=== PATIENT | male | born 1940 | race Caucasian/White ===

== ENCOUNTER 2017-10-13 16:08 | Observation (INO) | payer OTHER, MEDICARE, SELFPAY ==
[2016-03-01 15:34] VITALS: BMI 34.5
[2017-10-13] VITALS (10 sets, daily range): BP systolic 104–156; BP diastolic 67–87; PULSE 48–61; RESP 13–18; TEMP 36.6–36.7; O2SAT 95–98; BMI 34.3; BMI 33.7
--- NOTE | 2017-10-13 16:23 | RAD_ITS ---
STUDY: X-RAY CHEST REASON FOR EXAM: Male, 77 years old. CHEST PAIN TECHNIQUE: Single frontal view of the chest. COMPARISON: February 28, 2016 FINDINGS: Chronic appearing increased interstitial lung markings. There is no demonstrated pleural abnormality. Normal heart size. Normal mediastinum and grupo. Normal visualized pulmonary arteries. There is atherosclerotic calcification of the aortic arch with tortuosity. There are diffuse degenerative changes of the visualized thoracic spine. There is degenerative osteoarthritis of the bilateral shoulders. There is no demonstrated abnormality of the visualized soft tissue structures of the upper abdomen. RAD/Chest 1 View (Portable) IMPRESSION: There are no acute findings. Electronically Signed: Yandel Flynn MD at 18:03 EDT , Service support ,
--- NOTE | 2017-10-13 16:23 | EKG12_ITS ---
Test Reason : CP Blood Pressure : / mmHG Vent. Rate : 051 BPM Atrial Rate : 051 BPM P-R Int : 180 ms QRS Dur : 096 ms QT Int : 436 ms P-R-T Axes : 056 033 057 degrees QTc Int : 401 ms Sinus bradycardia Otherwise normal ECG Confirmed by IBETH LOZANO, DARRION ([id number]), scientific editor ALEENA SUERO ([id number] on 10/17/2017 2:26:38 PM Referred By: TREV Confirmed By:DARRION CRISTINA MD
--- NOTE | 2017-10-13 16:40 | CT_ITS ---
STUDY: CT BRAIN WITHOUT CONTRAST REASON FOR EXAM: Male, 77 years old. DIZZINESS, CP, SOB, DIZZY RADIATION DOSAGE (If Supplied By Facility): CTDIvol = ( 44.99 ) mGy, DLP = ( 829.85 ) mGycm TECHNIQUE: Transaxial CT imaging of the brain was performed without administration of intravenous contrast material. Individualized dose optimization techniques were used for this CT. COMPARISON: None. FINDINGS: Normal soft tissue structures. Normal calvarium. There are calcifications noted in the distal vertebral arteries. There are calcifications noted in the cavernous carotid arteries. This is consistent for atherosclerotic disease. There is a calcified mass along the midline perifalcine extra-axial space. This is likely a meningioma. Normal size ventricles and extra-axial spaces for the patient's age. Normal white matter tracts of the cerebral hemispheres. Normal basal ganglia and thalami. Normal brainstem. Normal cerebellum. There is no intracranial hemorrhage. There are no findings of an acute ischemic infarction. There is mild maxillary sinus disease. There is mild ethmoid sinus disease. CT/Brain/Head without Contrast IMPRESSION: Normal unenhanced CT scan of the brain. Electronically Signed: Yandel Flynn MD at 18:04 EDT , Service support ,
--- NOTE | 2017-10-13 16:44 | ED.VISSUMM ---
- ER Visit Summary Date of Service: 10/13/17 Chief Complaint: Chest pain History of Present Illness: The patient is a 77 M presenting with chest pain. 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 He had associated shortness of breath, nausea, diaphoresis, lightheadedness. He states initially he had spinning sensation. This spinning sensation resolved after approximately 1 minute. He has history of hypertension, hypercholesteremia, previous stents 1.5 years ago. He did have recent travel to [place] 2 weeks ago. He states it was a 12 hour car ride but he stopped frequently and got out of the car. He states he is under a lot of stress. Physical Examination: Vitals are stable. Patient is afebrile. Alert no acute distress. HEENT exam is unremarkable. Neck is supple. Lungs are clear and equal bilaterally. Heart is regular and bradycardic. Abdomen is soft nontender nondistended. Extremities are unremarkable. Skin is warm and dry. No focal neurologic deficit. NIH 0 Remainder of exam is unremarkable. Emergency Department Course and Treatment: Patient was given aspirin on arrival. He is pain-free on arrival. EKG is sinus bradycardia rate of 51. CBC, chemistries unremarkable. Troponin is negative. D-dimer negative. Chest x-ray shows no acute process. CT head shows no acute process. On reevaluation he is chest pain-free. Will discuss with the hospitalist for admission. Disposition: Admission Impression: Chest pain This note was generated with [email or web address] dictation software. It may contain incorrect words, spelling, and punctuation that were not noted in review of the chart prior to signing ED Disposition - Plan for ED Patient: Chief Complaint: Chest Pain Referrals: Kodi Ortiz MD [Primary Care Provider] -
--- NOTE | 2017-10-13 16:47 | ED.DCSUM_ITS ---
- ER Visit Summary Date of Service: 10/13/17 Chief Complaint: Chest pain History of Present Illness: The patient is a 77 M presenting with chest pain. 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 He had associated shortness of breath, nausea, diaphoresis, lightheadedness. He states initially he had spinning sensation. This spinning sensation resolved after approximately 1 minute. He has history of hypertension, hypercholesteremia, previous stents 1.5 years ago. He did have recent travel to [place] 2 weeks ago. He states it was a 12 hour car ride but he stopped frequently and got out of the car. He states he is under a lot of stress. Physical Examination: Vitals are stable. Patient is afebrile. Alert no acute distress. HEENT exam is unremarkable. Neck is supple. Lungs are clear and equal bilaterally. Heart is regular and bradycardic. Abdomen is soft nontender nondistended. Extremities are unremarkable. Skin is warm and dry. No focal neurologic deficit. NIH 0 Remainder of exam is unremarkable. Emergency Department Course and Treatment: Patient was given aspirin on arrival. He is pain-free on arrival. EKG is sinus bradycardia rate of 51. CBC , chemistries unremarkable. Troponin is negative. D-dimer negative. Chest x- ray shows no acute process. CT head shows no acute process. On reevaluation he is chest pain-free. Will discuss with the hospitalist for admission. Disposition: Admission Impression: Chest pain This note was generated with [employer] dictation software. It may contain incorrect words, spelling, and punctuation that were not noted in review of the chart prior to signing ED Disposition - Plan for ED Patient: Chief Complaint: Chest Pain Referrals: Kodi Ortiz MD [Primary Care Provider] -
[2017-10-13 16:49] LABS: Absolute Lymphocyte Count 1.73 X10^3/ul (0.83-4.51); Absolute Neutrophil Count 6.5 X10^3/uL (2.0-7.7); Basophil# 0.02 X10^3/uL; Basophil% 0.2 % (0-1); Eosinophil# 0.16 X10^3/uL; Eosinophils% 1.8 % (0-5); Hematocrit 44.5 % (40-54); Hemoglobin 14.8 g/dl (13.0-16.5); Lymphocyte # 1.73 X10^3/ul (4.0); Lymphocyte % 19.3 % (19-41); Mean Corp Hgb Conc 33.3 g/gl (32-36); Mean Corpuscular Volume 90.1 fL (80-94); Monocyte# 0.58 X10^3/uL; Monocyte% 6.5 % (0-10); Neutrophil # 6.47 X10^3/uL (2.7-7.7); Neutrophil % 72.1 % (47-70); Platelet Count 200 K/mm3 (150-450); RBC Distribution Width CV 13.1 % (11.6-14.6); RBC Distribution Width SD 42.6 fl (35.1-43.9); Red Blood Count 4.94 M/mm3 (4.6-6.2)
[2017-10-13 16:50] LABS: POSITIVE COUNT NO; POSITIVE DIFFERENTIAL NO; POSITIVE MORPHOLOGY NO
[2017-10-13 16:57] LABS: Anion Gap 5 (5-15); BUN 22 mg/dL (7-18); BUN/Creat Ratio 19.5 RATIO (10-20); Calcium,Total 10.1 mg/dL (8.5-10.1); Chloride 106 mmol/L (98-107); Creatinine, Serum 1.13 mg/dL (0.70-1.30); EST Glomerular Filtration Rate 67 mL/min (>60); Est Glom Filt Rate - Afr Amer 81 mL/min (>60); Estimated Creatinine Clearance 63.83 ml/min; Glucose 112 mg/dL (74-106); Potassium 4.5 mmol/L (3.5-5.1); Sodium Level 139 mmol/L (136-145)
[2017-10-13 16:58] LABS: D-Dimer Quantitative (DVT/PE) < 0.27 FEU/ug/m (0.27-0.49)
[2017-10-13] MEDS: Aspirin 81 MG TAB.CHEW 324 MG PO (17:03)
--- NOTE | 2017-10-13 18:32 | PCM.HP.STD ---
Problem List (1) Chest discomfort Status: Acute (2) Nicotine addiction Status: Chronic Qualifiers: Nicotine product type: cigarettes Substance use status: unspecified nicotine-induced disorder Qualified Code(s): F17.219 - Nicotine dependence, cigarettes, with unspecified nicotine-induced disorders (3) Sleep-disordered breathing Status: Chronic (4) Anxiety and depression Status: Suspected (5) Diabetes mellitus type 2 in obese Status: Chronic (6) Post PTCA Status: Chronic Comment: LAD and circumflex (7) CAD (coronary artery disease) Status: Chronic Qualifiers: Coronary Disease-Associated Artery/Lesion type: unspecified vessel or lesion type [place] vs. transplanted heart: unspecified whether [place] or transplanted heart Associated angina: angina presence unspecified Qualified Code(s): I25.10 - Atherosclerotic heart disease of [place] coronary artery without angina pectoris (8) Hyperlipidemia Status: Chronic Qualifiers: Hyperlipidemia type: pure hypercholesterolemia Qualified Code(s): E78.00 - Pure hypercholesterolemia, unspecified; E78.0 - Pure hypercholesterolemia (9) HTN (hypertension) Status: Chronic Qualifiers: Hypertension type: essential hypertension Qualified Code(s): I10 - Essential (primary) hypertension History of Present Illness Date of Admission: 10/13/17 Chief Complaint: Chest pain, LH, Dizziness The patient is a 77 y/o M w/ PMHx: HTN, HLD, CAD s/p PCI LAD and Circumflex 02/2016, Obesity, Tobacco Use who present to the [facility] ED on 10/13/17 with 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 Patient contacted Dr. Cha office who recommended presentation to the ED and also made appointment for patient. He noted prior to the onset he did have 1-2 minutes of vertigo which resolved and then he had onset of chest discomfort. He notes he has occasionally had vertigo but this has only lasted minutes and has never been prolonged. He notes general several week history of increased fatigue w/ notable bradycardia. He also notes recent car trip to [place]. In the ED work-up included afebrile, heart rate 48, BP 134/67, respiratory rate 13, 90% on 2 L nasal cannula, CBC, unremarkable d-dimer, BMP with BUN/Cr 22/1.13, glucose 112, < 0.015, EKG w/ sinus bradycardia, CT Head without acute findings, CXR with chronic changes. In the ED patient administered ASA. Last noted stress testing performed 05/18/16 w/ noted resting EKG sinus bradycardia with good functional capacity and heart rate response to exercise appropriate as well as BP response to exercise with some resting hypertension consistent with an appropriate response with no chest pain, arrhythmia or ST changes. Past Medical History Past Medical History (Chronic Problems): Chronic Problems (Last Updated 04/21/17 @ 10:36 by DANIELLE Molina) Nicotine addiction (Chronic) Sleep-disordered breathing (Chronic) Left atrial enlargement (Chronic) LVH (left ventricular hypertrophy) (Chronic) Diabetes mellitus type 2 in obese (Chronic) Post PTCA (Chronic ~2015) LAD and circumflex CAD (coronary artery disease) (Chronic) Hyperlipidemia (Chronic) HTN (hypertension) (Chronic) PAC (premature atrial contraction) (Chronic) PVC (premature ventricular contraction) (Chronic) Medical History: Medical History (Last Updated 04/21/17 @ 10:36 by DANIELLE Molina) Diabetes mellitus type 2 in obese (Chronic) E11.9, E66.9 CAD (coronary artery disease) (Chronic) I25.10 Hyperlipidemia (Chronic) E78.5 HTN (hypertension) (Chronic) I10 Allergies No Known Allergies Allergy (Verified 04/21/17 10:51) Home Medications: Ambulatory Orders Medication Instructions Recorded Acetaminophen [Tylenol Tablet] 325 - 650 mg PO Q6H PRN PRN #0 tab 03/02/16 Nitroglycerin [Nitrostat] 0.4 mg SUBLINGUAL Q5M PRN #1 bottle 03/02/16 Aspirin [Aspirin, Baby] 81 mg PO DAILY@0800 10/13/17 Atorvastatin Calcium [Lipitor] 80 mg PO DAILY@0 10/13/17 Clopidogrel Bisulfate [Plavix] 75 mg PO DAILY 10/13/17 Isosorbide Mononitrate [Imdur] 30 mg PO DAILY 10/13/17 Lisinopril [Zestril] 20 mg PO BID 10/13/17 Metoprolol Tartrate 12.5 mg PO BID 10/13/17 Surgical History: Surgical History (Last Updated 04/21/17 @ 10:37 by DANIELLE Molina) Post PTCA (Chronic) Onset Date: ~2015 Z98.61 LAD and circumflex Surgical History: - - PCI ?2, tonsillectomy. Psychiatric History: No pertinent psych hx Lives: Spouse/ Significant Other Smoking Status: Former smoker - Patient quit approximately 1.5 years prior to current presentation. Tobacco Use: Non-smoker Alcohol: None Drugs: None - *Family History Maternal History Items: - - Patient denies any maternal or paternal family history including diabetes, heart disease, cancer. Paternal History Items: - - Patient denies any maternal or paternal family history including diabetes, heart disease, cancer. Review of Systems Constitutional: Reports: Malaise, Weakness, Fatigue. Denies: Chills, Fever, Weight Change HEENT: Denies: Head Aches, Sinus Congestion, Sinus Drainage Cardiovascular: Reports: Chest Pain, Chest Pressure, Chest Tightness, Light Headedness. Denies: Edema, Orthopnea, Palpitations Respiratory: Reports: Shortness of Breath. Denies: Cough, Shortness of breath at rest, Sputum production Gastrointestinal: Reports: Melena. Denies: Abdominal Pain, Nausea, Vomiting Genitourinary: Denies: Dysuria Musculoskeletal: Denies: Joint Pain, Joint Tenderness Skin: Denies: Rash, Wounds Neurological: Denies: Numbness, Tingling, Focal weakness Psychiatric: Denies: Anxiety, Depression, Homicidal Ideations, Suicidal Ideations Hematologic/ Lymphatic: Denies: Easy Bruising, Easy Bleeding VTE Information - Inpt Only VTE Present on Admission: No VTE Mechan Device Prophylaxis: SCD's VTE Pharm Prophylaxis ordered?: Yes Subjective: He did upright in the ED bed, no acute distress, notes marked improvement since initial onset of chest discomfort, currently 1 out of 10. Objective: Physical Examination: General: awake, alert, oriented x 3 and cooperative, seated upright in bed in no apparent distress, notes chest pain has improved, more pressure currently, reduced. Skin: normal color, turgor, no icterus, cyanosis. HEENT: AT/NC, EOMI, PERRLA, MMM, no carotid bruits or JVD noted. Lungs: CTA bilaterally, moderate effort, mild decrease BL bases, no rales, ronchi or wheezing. Heart: regular rate and rhythm; no gallop, rub audible. Abdomen: soft, obese, NTTP, ND, normal BS, no HSM. Extremities: no cyanosis, clubbing, or edema. Neurological: patient awake, alert, oriented x 3; cognitive function intact; pupils equally reactive to light and accomodation; cranial nerves II-XII grossly normal, moving all 4 extremities, no focal deficits, strength mildly globally decreased. Psychiatric: affect appears normal, no acute evidence of depressive or anxiety feelings. - Physical Exam Vital Signs Temp Pulse Resp BP Pulse Ox 97.8 F 48 L 13 134/67 H 95 10/13/17 16:20 10/13/17 18:16 10/13/17 18:16 10/13/17 18:16 10/13/17 18:16 Oxygen Flow Rate (L/min) 2 Oxygen Delivery Method Nasal Cannula Weight: 260 lb 2.327 oz Body Mass Index (BMI) 34.3 Laboratory Tests Past 24 Hrs 10/13/17 10/13/17 10/13/17 16:35 16:35 16:35 WBC 9.0 RBC 4.94 Hgb 14.8 Hct 44.5 MCV 90.1 MCH 30.0 MCHC 33.3 RDW 13.1 RDW Differential 42.6 Plt Count 200 MPV 10.0 Immature Gran % (Auto) 0.100 Neut % (Auto) 72.1 H Lymph % (Auto) 19.3 Nicholas % (Auto) 6.5 Eos % (Auto) 1.8 Baso % (Auto) 0.2 Absolute Neuts (auto) 6.5 Absolute Lymphs (auto) 1.73 Total Counted Not Reportable D-Dimer Quant (PE/DVT) < 0.27 L Sodium 139 Potassium 4.5 Chloride 106 Carbon Dioxide 28.0 Anion Gap 5 BUN 22 H Creatinine 1.13 Estim Creat Clear Calc 63.83 Est GFR (MDRD) Af Amer 81 Est GFR (MDRD) Non-Af 67 BUN/Creatinine Ratio 19.5 Glucose 112 H Calcium 10.1 Troponin I < 0.015 Assessment/Plan All Active Problems (Last Updated 04/21/17 @ 10:36 by DANIELLE Molina) Chest discomfort (Acute) NSTEMI (non-ST elevated myocardial infarction) (Resolved) The patient is a 77 y/o M w/ PMHx: HTN, HLD, CAD s/p PCI LAD and Circumflex 02/2016, Obesity, Tobacco Use who present to the [facility] ED on 10/13/17 with 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 (1) Chest Pain: CBC, unremarkable d-dimer, BMP with BUN/Cr 22/1.13, glucose 112, < 0.015, EKG w/ sinus bradycardia, CT Head without acute findings, CXR with chronic changes. Will admit to PCU, place on a monitored bed to assure no acute myocardial infarction with serial cardiac enzymes and EKGs. Patient is able to perform exercise and does not have LBBB or V-pacing but does have history of PCI/ST-T changes with unclear wall motion abnormality at rest thus will proceed with AM nuclear stress test. ASA, NG, morphine. Will request Dr. Cha consultation as patient has upcoming appt with him secondary to his current presentation and noted bradycardia to assure agreement with medication changes. (2) Sinus bradycardia, arrhythmia: She notes more recently has been feeling poorly, possibly related to chest pain patient however states that his heart rate is frequently in the 40s, will decrease metoprolol dose. (3) CAD: s/p PCI LAD and Circ 02/2016, following w/ Dr. Cha, continue home regimen asa, plavix, statin, BB. (4) Hypertension: Continue home regimen including isosorbide, lisinopril, metoprolol with decreased dose given notable bradycardia, PRN hydralazine. (5) Hyperlipidemia: Continue home statin regimen. AM FLP. (6) Obesity: Weight loss and lifestyle changes encouraged, nutrition consulted for education and teaching. (7) Former Tobacco Use: Encouraged continued cessation. (8) Obesity: Weight loss and lifestyle changes encouraged. (9) DVT prophylaxis: SCD, Lovenox. Code Visit OBSV E&M: [id number] Initial observation care L3
--- NOTE | 2017-10-13 18:46 | HP.PCM_ITS ---
Problem List (1) Chest discomfort Status: Acute (2) Nicotine addiction Status: Chronic Qualifiers: Nicotine product type: cigarettes Substance use status: unspecified nicotine-induced disorder Qualified Code(s): F17.219 - Nicotine dependence, cigarettes, with unspecified nicotine-induced disorders (3) Sleep-disordered breathing Status: Chronic (4) Anxiety and depression Status: Suspected (5) Diabetes mellitus type 2 in obese Status: Chronic (6) Post PTCA Status: Chronic Comment: LAD and circumflex (7) CAD (coronary artery disease) Status: Chronic Qualifiers: Coronary Disease-Associated Artery/Lesion type: unspecified vessel or lesion type [place] vs. transplanted heart: unspecified whether [place] or transplanted heart Associated angina: angina presence unspecified Qualified Code(s): I25.10 - Atherosclerotic heart disease of [place] coronary artery without angina pectoris (8) Hyperlipidemia Status: Chronic Qualifiers: Hyperlipidemia type: pure hypercholesterolemia Qualified Code(s): E78.00 - Pure hypercholesterolemia, unspecified; E78.0 - Pure hypercholesterolemia (9) HTN (hypertension) Status: Chronic Qualifiers: Hypertension type: essential hypertension Qualified Code(s): I10 - Essential (primary) hypertension History of Present Illness Date of Admission: 10/13/17 Chief Complaint: Chest pain, LH, Dizziness The patient is a 77 y/o M w/ PMHx: HTN, HLD, CAD s/p PCI LAD and Circumflex 2015, Obesity, Tobacco Use who present to the [facility] ED on 10/13/17 with history 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 Patient contacted Dr. Cha office who recommended presentation to the ED and also made appointment for patient. He noted prior to the onset he did have 1-2 minutes of vertigo which resolved and then he had onset of chest discomfort. He notes he has occasionally had vertigo but this has only lasted minutes and has never been prolonged. He notes general several week history of increased fatigue w/ notable bradycardia. He also notes recent car trip to [place]. In the ED work-up included afebrile, heart rate 48, BP 134/67, respiratory rate 13, 90% on 2 L nasal cannula, CBC, unremarkable d-dimer, BMP with BUN/Cr 22/1.13, glucose 112, < 0.015, EKG w/ sinus bradycardia, CT Head without acute findings, CXR with chronic changes. In the ED patient administered ASA. Last noted stress testing performed 05/18/16 w/ noted resting EKG sinus bradycardia with good functional capacity and heart rate response to exercise appropriate as well as BP response to exercise with some resting hypertension consistent with an appropriate response with no chest pain, arrhythmia or ST changes. Past Medical History Past Medical History (Chronic Problems): Chronic Problems (Last Updated 04/21/17 @ 10:36 by DANIELLE Molina) Nicotine addiction (Chronic) Sleep-disordered breathing (Chronic) Left atrial enlargement (Chronic) LVH (left ventricular hypertrophy) (Chronic) Diabetes mellitus type 2 in obese (Chronic) Post PTCA (Chronic ~2015) LAD and circumflex CAD (coronary artery disease) (Chronic) Hyperlipidemia (Chronic) HTN (hypertension) (Chronic) PAC (premature atrial contraction) (Chronic) PVC (premature ventricular contraction) (Chronic) Medical History: Medical History (Last Updated 04/21/17 @ 10:36 by DANIELLE Molina) Diabetes mellitus type 2 in obese (Chronic) E11.9, E66.9 CAD (coronary artery disease) (Chronic) I25.10 Hyperlipidemia (Chronic) E78.5 HTN (hypertension) (Chronic) I10 Allergies No Known Allergies Allergy (Verified 04/21/17 10:51) Home Medications: Ambulatory Orders Medication Instructions Recorded Acetaminophen [Tylenol Tablet] 325 - 650 mg PO Q6H PRN PRN #0 tab 03/02/16 Nitroglycerin [Nitrostat] 0.4 mg SUBLINGUAL Q5M PRN #1 bottle 03/02/16 Aspirin [Aspirin, Baby] 81 mg PO DAILY@0800 10/13/17 Atorvastatin Calcium [Lipitor] 80 mg PO DAILY@0 10/13/17 Clopidogrel Bisulfate [Plavix] 75 mg PO DAILY 10/13/17 Isosorbide Mononitrate [Imdur] 30 mg PO DAILY 10/13/17 Lisinopril [Zestril] 20 mg PO BID 10/13/17 Metoprolol Tartrate 12.5 mg PO BID 10/13/17 Surgical History: Surgical History (Last Updated 04/21/17 @ 10:37 by DANIELLE Molina) Post PTCA (Chronic) Onset Date: ~2015 Z98.61 LAD and circumflex Surgical History: - - PCI ?2, tonsillectomy. Psychiatric History: No pertinent psych hx Lives: Spouse/ Significant Other Smoking Status: Former smoker - Patient quit approximately 1.5 years prior to current presentation. Tobacco Use: Non-smoker Alcohol: None Drugs: None - *Family History Maternal History Items: - - Patient denies any maternal or paternal family history including diabetes, heart disease, cancer. Paternal History Items: - - Patient denies any maternal or paternal family history including diabetes, heart disease, cancer. Review of Systems Constitutional: Reports: Malaise, Weakness, Fatigue. Denies: Chills, Fever, Weight Change HEENT: Denies: Head Aches, Sinus Congestion, Sinus Drainage Cardiovascular: Reports: Chest Pain, Chest Pressure, Chest Tightness, Light Headedness. Denies: Edema, Orthopnea, Palpitations Respiratory: Reports: Shortness of Breath. Denies: Cough, Shortness of breath at rest, Sputum production Gastrointestinal: Reports: Melena. Denies: Abdominal Pain, Nausea, Vomiting Genitourinary: Denies: Dysuria Musculoskeletal: Denies: Joint Pain, Joint Tenderness Skin: Denies: Rash, Wounds Neurological: Denies: Numbness, Tingling, Focal weakness Psychiatric: Denies: Anxiety, Depression, Homicidal Ideations, Suicidal Ideations Hematologic/ Lymphatic: Denies: Easy Bruising, Easy Bleeding VTE Information - Inpt Only VTE Present on Admission: No VTE Mechan Device Prophylaxis: SCD's VTE Pharm Prophylaxis ordered?: Yes Subjective: He did upright in the ED bed, no acute distress, notes marked improvement since initial onset of chest discomfort, currently 1 out of 10. Objective: Physical Examination: General: awake, alert, oriented x 3 and cooperative, seated upright in bed in no apparent distress, notes chest pain has improved, more pressure currently, reduced. Skin: normal color, turgor, no icterus, cyanosis. HEENT: AT/NC, EOMI, PERRLA, MMM, no carotid bruits or JVD noted. Lungs: CTA bilaterally, moderate effort, mild decrease BL bases, no rales, ronchi or wheezing. Heart: regular rate and rhythm; no gallop, rub audible. Abdomen: soft, obese, NTTP, ND, normal BS, no HSM. Extremities: no cyanosis, clubbing, or edema. Neurological: patient awake, alert, oriented x 3; cognitive function intact; pupils equally reactive to light and accomodation; cranial nerves II-XII grossly normal, moving all 4 extremities, no focal deficits, strength mildly globally decreased. Psychiatric: affect appears normal, no acute evidence of depressive or anxiety feelings. - Physical Exam Vital Signs Temp Pulse Resp BP Pulse Ox 97.8 F 48 L 13 134/67 H 95 10/13/17 16:20 10/13/17 18:16 10/13/17 18:16 10/13/17 18:16 10/13/17 18:16 Oxygen Flow Rate (L/min) 2 Oxygen Delivery Method Nasal Cannula Weight: 260 lb 2.327 oz Body Mass Index (BMI) 34.3 Laboratory Tests Past 24 Hrs 10/13/17 10/13/17 10/13/17 16:35 16:35 16:35 WBC 9.0 RBC 4.94 Hgb 14.8 Hct 44.5 MCV 90.1 MCH 30.0 MCHC 33.3 RDW 13.1 RDW Differential 42.6 Plt Count 200 MPV 10.0 Immature Gran % (Auto) 0.100 Neut % (Auto) 72.1 H Lymph % (Auto) 19.3 Ponce % (Auto) 6.5 Eos % (Auto) 1.8 Baso % (Auto) 0.2 Absolute Neuts (auto) 6.5 Absolute Lymphs (auto) 1.73 Total Counted Not Reportable D-Dimer Quant (PE/DVT) < 0.27 L Sodium 139 Potassium 4.5 Chloride 106 Carbon Dioxide 28.0 Anion Gap 5 BUN 22 H Creatinine 1.13 Estim Creat Clear Calc 63.83 Est GFR (MDRD) Af Amer 81 Est GFR (MDRD) Non-Af 67 BUN/Creatinine Ratio 19.5 Glucose 112 H Calcium 10.1 Troponin I < 0.015 Assessment/Plan All Active Problems (Last Updated 04/21/17 @ 10:36 by DANIELLE Molina) Chest discomfort (Acute) NSTEMI (non-ST elevated myocardial infarction) (Resolved) The patient is a 77 y/o M w/ PMHx: HTN, HLD, CAD s/p PCI LAD and Circumflex 2015, Obesity, Tobacco Use who present to the [facility] ED on 10/13/17 with history 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 (1) Chest Pain: CBC, unremarkable d-dimer, BMP with BUN/Cr 22/1.13, glucose 112 , < 0.015, EKG w/ sinus bradycardia, CT Head without acute findings, CXR with chronic changes. Will admit to PCU, place on a monitored bed to assure no acute myocardial infarction with serial cardiac enzymes and EKGs. Patient is able to perform exercise and does not have LBBB or V-pacing but does have history of PCI /ST-T changes with unclear wall motion abnormality at rest thus will proceed with AM nuclear stress test. ASA, NG, morphine. Will request Dr. Cha consultation as patient has upcoming appt with him secondary to his current presentation and noted bradycardia to assure agreement with medication changes. (2) Sinus bradycardia, arrhythmia: She notes more recently has been feeling poorly, possibly related to chest pain patient however states that his heart rate is frequently in the 40s, will decrease metoprolol dose. (3) CAD: s/p PCI LAD and Circ 02/2016, following w/ Dr. Cha, continue home regimen asa, plavix, statin, BB. (4) Hypertension: Continue home regimen including isosorbide, lisinopril, metoprolol with decreased dose given notable bradycardia, PRN hydralazine. (5) Hyperlipidemia: Continue home statin regimen. AM FLP. (6) Obesity: Weight loss and lifestyle changes encouraged, nutrition consulted for education and teaching. (7) Former Tobacco Use: Encouraged continued cessation. (8) Obesity: Weight loss and lifestyle changes encouraged. (9) DVT prophylaxis: SCD, Lovenox. Code Visit OBSV E&M: 88229 Initial observation care L3
--- NOTE | 2017-10-13 19:29 | EKG12_ITS ---
Test Reason : CP NEW ADMISSION Blood Pressure : / mmHG Vent. Rate : 049 BPM Atrial Rate : 049 BPM P-R Int : 198 ms QRS Dur : 096 ms QT Int : 436 ms P-R-T Axes : 058 039 060 degrees QTc Int : 393 ms Sinus bradycardia Otherwise normal ECG Confirmed by IBETH LOZANO, DARRION ([id number]), script editor ALEENA SUERO ([id number] on 10/17/2017 3:45:51 PM Referred By: JERMAINE Confirmed By:DARRION CRISTINA MD
[2017-10-13 19:44] LABS: Magnesium 2.1 mg/dL (1.6-2.6)
[2017-10-13] MEDS: 0.9% Normal Saline 1,000 ML 100 ML IV (22:00)
[2017-10-13] MEDS: Atorvastatin Calcium 80 MG Tablet PO (22:01)
[2017-10-13] MEDS: Famotidine 20 MG Tablet PO (22:01)
[2017-10-13] MEDS: Lisinopril 20 MG Tablet PO (22:01)
[2017-10-14] VITALS (8 sets, daily range): BP systolic 122–138; BP diastolic 60–76; PULSE 49–60; RESP 16–18; TEMP 36.5–36.6; O2SAT 95–97
--- NOTE | 2017-10-14 05:55 | EKG12_ITS ---
Test Reason : MORNING EKG Blood Pressure : / mmHG Vent. Rate : 050 BPM Atrial Rate : 050 BPM P-R Int : 220 ms QRS Dur : 096 ms QT Int : 460 ms P-R-T Axes : 072 042 060 degrees QTc Int : 419 ms Sinus bradycardia with 1st degree A-V block Otherwise normal ECG Confirmed by IBETH LOZANO, DARRION ([id number]), online content editor ALEENA SUERO ([id number]) on 10/17/2017 3:42:23 PM Referred By: JERMAINE Confirmed By:DARRION CRISTINA MD
[2017-10-14] MEDS: 0.9% Normal Saline 1,000 ML 100 ML IV (05:57)
[2017-10-14] MEDS: Lisinopril 20 MG Tablet PO (05:57)
[2017-10-14] MEDS: Aspirin 81 MG TAB.CHEW PO (05:57)
[2017-10-14] MEDS: Clopidogrel Bisulfate 75 MG Tablet PO (05:57)
[2017-10-14 06:24] LABS: Hemoglobin 14.2 g/dl (13.0-16.5); Mean Corp Hgb Conc 33.8 g/gl (32-36); Mean Corpuscular Hgb 30.5 pg (27.0-32.0); Mean Corpuscular Volume 90.1 fL (80-94); Mean Platelet Vol. 10.1 fl (6.2-12.0); Platelet Count 182 K/mm3 (150-450); RBC Distribution Width CV 12.9 % (11.6-14.6); RBC Distribution Width SD 42.1 fl (35.1-43.9); Red Blood Count 4.66 M/mm3 (4.6-6.2)
[2017-10-14 06:25] LABS: Scan Indicated on CBC? Y/N NO
[2017-10-14 06:26] LABS: International Normalized Ratio 1.1; Prothrombin Time (Protime)PT. 13.9 SECONDS (11.7-14.9)
[2017-10-14 06:27] LABS: Partial Thromboplast Time 26.3 Seconds (24.1-36.2)
[2017-10-14 06:45] LABS: Anion Gap 9 (5-15); BUN 22 mg/dL (7-18); BUN/Creat Ratio 19.8 RATIO (10-20); Calcium,Total 8.7 mg/dL (8.5-10.1); Chloride 108 mmol/L (98-107); Cholesterol 95 mg/dL (200); Creatinine, Serum 1.11 mg/dL (0.70-1.30); EST Glomerular Filtration Rate 69 mL/min (>60); Est Glom Filt Rate - Afr Amer 83 mL/min (>60); Estimated Creatinine Clearance 64.98 ml/min; Glucose 118 mg/dL (74-106); High Density Lipoprotein 28 mg/dL; Potassium 4.3 mmol/L (3.5-5.1); Sodium Level 143 mmol/L (136-145); Triglycerides 192 mg/dL; Very Low Density Lipoprotein 38 mg/dL (5-40)
--- NOTE | 2017-10-14 10:21 | PCM.CONS.C ---
Problem List (1) Chest discomfort Status: Acute (2) Bradycardia Status: Acute (3) CAD (coronary artery disease) Status: Chronic Qualifiers: Coronary Disease-Associated Artery/Lesion type: unspecified vessel or lesion type [place] vs. transplanted heart: unspecified whether [place] or transplanted heart Associated angina: angina presence unspecified Qualified Code(s): I25.10 - Atherosclerotic heart disease of [place] coronary artery without angina pectoris (4) Post PTCA Status: Chronic Comment: LAD and circumflex (5) Hyperlipidemia Status: Chronic Qualifiers: Hyperlipidemia type: pure hypercholesterolemia Qualified Code(s): E78.00 - Pure hypercholesterolemia, unspecified; E78.0 - Pure hypercholesterolemia (6) HTN (hypertension) Status: Chronic Qualifiers: Hypertension type: essential hypertension Qualified Code(s): I10 - Essential (primary) hypertension (7) Vertigo Status: Acute Reason for Consult Date of Consultation: 10/14/17 History of Present Illness: The patient is a 77 year old white male with a past cardiovascular history which has included underlying CAD, status post PCI, superimposed on hyperlipidemia and hypertension who presents for concerns of symptoms compatible with vertigo as well as an atypical chest discomfort. He states that he has been experiencing episodes where everything is spinning. He also has been experiencing a left-sided chest discomfort as if someone was pressing on his left chest. He states he has had more of his esophageal reflux symptoms and using more antacids. He also has felt like he is slowing down and becoming more tired and fatigued. He has not complained of any acute respiratory issues nor has he had any syncopal events. He denies any other additional cardiovascular evaluation or care. He states he is in need of an upcoming colonoscopy to monitor his colonic polyp history. He presented to the hospital for his aforementioned symptoms. He had cardiac enzymes performed which were negative. An ECG demonstrated sinus bradycardia with no acute ECG changes. His cardiac rhythm has remained sinus bradycardia. His chest x-ray demonstrated no acute changes. [] Past Medical History Allergies/Adverse Reactions: Allergies No Known Allergies Allergy (Verified 04/21/17 10:51) Home Medications: Ambulatory Orders Medication Instructions Recorded Acetaminophen [Tylenol Tablet] 325 - 650 mg PO Q6H PRN PRN #0 tab 03/02/16 Nitroglycerin [Nitrostat] 0.4 mg SUBLINGUAL Q5M PRN #1 bottle 03/02/16 Aspirin [Aspirin, Baby] 81 mg PO DAILY@0800 10/13/17 Atorvastatin Calcium [Lipitor] 80 mg PO DAILY@2200 10/13/17 Clopidogrel Bisulfate [Plavix] 75 mg PO DAILY 10/13/17 Isosorbide Mononitrate [Imdur] 30 mg PO DAILY 10/13/17 Lisinopril [Zestril] 20 mg PO BID 10/13/17 Metoprolol Tartrate 12.5 mg PO BID 10/13/17 Past Medical History (Chronic Problems): Chronic Problems (Last Updated 04/21/17 @ 10:36 by DANIELLE Molina) Nicotine addiction (Chronic) Sleep-disordered breathing (Chronic) Left atrial enlargement (Chronic) LVH (left ventricular hypertrophy) (Chronic) 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 Psychiatric History: No pertinent psych hx - *Family History Maternal History Items: - - Patient denies any maternal or paternal family history including diabetes, heart disease, cancer. Paternal History Items: - - Patient denies any maternal or paternal family history including diabetes, heart disease, cancer. Lives: Spouse/ Significant Other Smoking Status: Former smoker Tobacco Use: Non-smoker Alcohol: None Drugs: None Review of Systems - Review of Systems General: Reports: Fatigue. Denies: Fever, Night Sweats Cardiovascular: Reports: Chest Discomfort, - - Vertigo. Denies: Shortness of Breath, Orthopnea, PND, Peripheral Edema, Palpitations, Lightheadedness, Dizziness, Near Syncope, Syncope Respiratory: Denies: Cough, Sputum Production, Hemoptysis Gastrointestinal: Reports: Indigestion, Heart Burn. Denies: Hematemesis, Hematochezia, Melena Genitourinary: Denies: Dysuria, Hematuria Skin: Denies: Rash Subjectve: This is a 77-year-old white male who appears to be resting comfortably at the moment in no acute distress. Objective: Vital Signs Temp Pulse Resp BP Pulse Ox 97.8 F 57 L 16 138/68 H 95 10/14/17 05:55 10/14/17 07:13 10/14/17 05:55 10/14/17 05:55 10/14/17 05:55 Oxygen Delivery Method Room Air Weight: 255 lb 11.779 oz Body Mass Index (BMI) 33.7 Intake and Output for Last 24 Hours 10/12/17 10/13/17 10/14/17 23:59 23:59 23:59 Intake Total 429 / 429 603 / 603 Balance 429 / 429 603 / 603 General: Awake, Alert, Oriented x 3, Cooperative, No Acute Distress HEENT: Atraumatic, Normocephalic, PERRL, EOMI, Sclera Non Icteric Oral: Moist Mucosa Neck: Supple, Good ROM, No JVD Lungs: Clear to auscultation Cardiovascular: Regular Rhythm, Normal S1, Normal S2 Vascular: No Carotid Bruits Abdomen: Bowel Sounds Present, Soft, Non Tender Extremities: No Cyanosis, No Clubbing, No edema Neurological: No Focal Motor or Sensory Deficit Psych/Mental Status: Appropriate, Normal Affect 10/13/17 18:53: Troponin I < 0.015 10/13/17 22:40: Troponin I < 0.015 10/14/17 05:55: WBC 8.0, RBC 4.66, Hgb 14.2, Hct 42.0, MCV 90.1, MCH 30.5, MCHC 33.8, RDW 12.9, RDW Differential 42.1, Plt Count 182, MPV 10.1 10/14/17 05:55: Sodium 143, Potassium 4.3, Chloride 108 H, Carbon Dioxide 26.0, Anion Gap 9, BUN 22 H, Creatinine 1.11, Est GFR (MDRD) Af Amer 83, Est GFR (MDRD) Non-Af 69, BUN/Creatinine Ratio 19.8, Glucose 118 H, Calcium 8.7, Triglycerides 192, Cholesterol 95, LDL Cholesterol 29, VLDL Cholesterol 38, HDL Cholesterol 28 L 10/14/17 05:55: PT 13.9, INR 1.1, APTT 26.3 Rhythm: Sinus rhythm/sinus bradycardia EKG: As noted above ECHO: 02/28/2016: Left ventricle normal with an LVEF of 60%; mild concentric LVH; mild left atrial enlargement; trivial MR/TR; mild focal aortic valve thickening; trivial RI; estimated RV systolic pressure of 31 mmHg Stress Test:: Exercise tolerance test/stress nuclear imaging study: Myocardial perfusion changes compatible with physiologic apical thinning with no myocardial perfusion changes consider diagnostic for associated stress-induced myocardial ischemia or previous myocardial injury/infarction: Gated LVEF of 60% Cardiac Cath: 03/01/2016: Left ventricle normal with an LVEF of 60%; left main coronary artery normal; LAD with proximal 10-25% eccentric stenosis; subsequent LAD with 85% irregular long stenosis; status post second diagonal branch occluded with the remainder the vessel filling from left to right collateral flow; LCx being a large codominant vessel with a left PDA with proximal 75% hazy eccentric appearing stenosis; RCA being a large codominant vessel with minimal luminal irregularities with collateral flow to the mid to distal LAD; mild MR PCI: Well 2015: PTCA/MADAY to the mid LAD with a 2.25?12 Promus synergy stent; successful PTCA/MADAY to the distal LCx with a 2.5?12 Promus synergy stent CXR: Preliminary evaluation as noted above: Please see official report Assessment/Plan 1. Chest discomfort The patient has had chest discomfort. The etiology is unclear to whether this represents his underlying CAD process or a non-CAD process. He is undergoing noninvasive evaluation thus far. His cardiac enzymes have been negative. His ECG has demonstrated no new acute changes. He is pending evaluation with an exercise tolerance test/imaging study. Depending upon his findings he may or may not need further invasive evaluation or care. 2. Bradycardia The patient does have an underlying sinus bradycardia. He has been on very low-dose beta-yesy therapy with metoprolol XL 12.5 mg p.o. daily. Ideally it would be good, from his cardiovascular history, to continue his beta-yesy therapy. However, if there is concern that his bradycardia, is contributing to any of his symptoms, then his beta-yesy therapy may need to be discontinued. However, if it appears that he does continue to require beta-yesy based on his cardiovascular history, and he remains bradycardic, and there are concerns that his bradycardia is contributing to any of his symptoms, then he may need to be considered for the possibility of future permanent pacemaker backup. 3. CAD status post LAD and LCx PCI/MADAY He does need to continue risk factor evaluation and care. He continues noninvasive evaluation at this time. Again depending upon findings he may need repeat invasive evaluation. Otherwise he may need to be considered for further noncardiac evaluation of his symptoms. 4. Hyperlipidemia He will continue risk factor evaluation care as deemed appropriate. 5. Hypertension He will continue medical management with adjustment of his medications as needed. 6. Vertigo He describes symptoms of vertigo. He should be further evaluated by internal medicine and if need be by neurology and/or ENT. Comment: The patient's case has been discussed and reviewed with the patient as well as his multiple family members present. This note was generated with [employer] dictation software. It may contain incorrect words, spelling, and punctuation that were not noted in checking the note before signing.
--- NOTE | 2017-10-14 10:26 | CON.PCM_ITS ---
Problem List (1) Chest discomfort Status: Acute (2) Bradycardia Status: Acute (3) CAD (coronary artery disease) Status: Chronic Qualifiers: Coronary Disease-Associated Artery/Lesion type: unspecified vessel or lesion type [place] vs. transplanted heart: unspecified whether [place] or transplanted heart Associated angina: angina presence unspecified Qualified Code(s): I25.10 - Atherosclerotic heart disease of [place] coronary artery without angina pectoris (4) Post PTCA Status: Chronic Comment: LAD and circumflex (5) Hyperlipidemia Status: Chronic Qualifiers: Hyperlipidemia type: pure hypercholesterolemia Qualified Code(s): E78.00 - Pure hypercholesterolemia, unspecified; E78.0 - Pure hypercholesterolemia (6) HTN (hypertension) Status: Chronic Qualifiers: Hypertension type: essential hypertension Qualified Code(s): I10 - Essential (primary) hypertension (7) Vertigo Status: Acute Reason for Consult Date of Consultation: 10/14/17 History of Present Illness: The patient is a 77 year old white male with a past cardiovascular history which has included underlying CAD, status post PCI, superimposed on hyperlipidemia and hypertension who presents for concerns of symptoms compatible with vertigo as well as an atypical chest discomfort. He states that he has been experiencing episodes where everything is spinning. He also has been experiencing a left-sided chest discomfort as if someone was pressing on his left chest. He states he has had more of his esophageal reflux symptoms and using more antacids. He also has felt like he is slowing down and becoming more tired and fatigued. He has not complained of any acute respiratory issues nor has he had any syncopal events. He denies any other additional cardiovascular evaluation or care. He states he is in need of an upcoming colonoscopy to monitor his colonic polyp history. He presented to the hospital for his aforementioned symptoms. He had cardiac enzymes performed which were negative. An ECG demonstrated sinus bradycardia with no acute ECG changes. His cardiac rhythm has remained sinus bradycardia. His chest x-ray demonstrated no acute changes. [] Past Medical History Allergies/Adverse Reactions: Allergies No Known Allergies Allergy (Verified 04/21/17 10:51) Home Medications: Ambulatory Orders Medication Instructions Recorded Acetaminophen [Tylenol Tablet] 325 - 650 mg PO Q6H PRN PRN #0 tab 03/02/16 Nitroglycerin [Nitrostat] 0.4 mg SUBLINGUAL Q5M PRN #1 bottle 03/02/16 Aspirin [Aspirin, Baby] 81 mg PO DAILY@0800 10/13/17 Atorvastatin Calcium [Lipitor] 80 mg PO DAILY@2200 10/13/17 Clopidogrel Bisulfate [Plavix] 75 mg PO DAILY 10/13/17 Isosorbide Mononitrate [Imdur] 30 mg PO DAILY 10/13/17 Lisinopril [Zestril] 20 mg PO BID 10/13/17 Metoprolol Tartrate 12.5 mg PO BID 10/13/17 Past Medical History (Chronic Problems): Chronic Problems (Last Updated 04/21/17 @ 10:36 by DANIELLE Molina) Nicotine addiction (Chronic) Sleep-disordered breathing (Chronic) Left atrial enlargement (Chronic) LVH (left ventricular hypertrophy) (Chronic) 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 Psychiatric History: No pertinent psych hx - *Family History Maternal History Items: - - Patient denies any maternal or paternal family history including diabetes, heart disease, cancer. Paternal History Items: - - Patient denies any maternal or paternal family history including diabetes, heart disease, cancer. Lives: Spouse/ Significant Other Smoking Status: Former smoker Tobacco Use: Non-smoker Alcohol: None Drugs: None Review of Systems - Review of Systems General: Reports: Fatigue. Denies: Fever, Night Sweats Cardiovascular: Reports: Chest Discomfort, - - Vertigo. Denies: Shortness of Breath, Orthopnea, PND, Peripheral Edema, Palpitations, Lightheadedness, Dizziness, Near Syncope, Syncope Respiratory: Denies: Cough, Sputum Production, Hemoptysis Gastrointestinal: Reports: Indigestion, Heart Burn. Denies: Hematemesis, Hematochezia, Melena Genitourinary: Denies: Dysuria, Hematuria Skin: Denies: Rash Subjectve: This is a 77-year-old white male who appears to be resting comfortably at the moment in no acute distress. Objective: Vital Signs Temp Pulse Resp BP Pulse Ox 97.8 F 57 L 16 138/68 H 95 10/14/17 05:55 10/14/17 07:13 10/14/17 05:55 10/14/17 05:55 10/14/17 05:55 Oxygen Delivery Method Room Air Weight: 255 lb 11.779 oz Body Mass Index (BMI) 33.7 Intake and Output for Last 24 Hours 10/12/17 10/13/17 10/14/17 23:59 23:59 23:59 Intake Total 429 / 429 603 / 603 Balance 429 / 429 603 / 603 General: Awake, Alert, Oriented x 3, Cooperative, No Acute Distress HEENT: Atraumatic, Normocephalic, PERRL, EOMI, Sclera Non Icteric Oral: Moist Mucosa Neck: Supple, Good ROM, No JVD Lungs: Clear to auscultation Cardiovascular: Regular Rhythm, Normal S1, Normal S2 Vascular: No Carotid Bruits Abdomen: Bowel Sounds Present, Soft, Non Tender Extremities: No Cyanosis, No Clubbing, No edema Neurological: No Focal Motor or Sensory Deficit Psych/Mental Status: Appropriate, Normal Affect 10/13/17 18:53: Troponin I < 0.015 10/13/17 22:40: Troponin I < 0.015 10/14/17 05:55: WBC 8.0, RBC 4.66, Hgb 14.2, Hct 42.0, MCV 90.1, MCH 30.5, MCHC 33.8, RDW 12.9, RDW Differential 42.1, Plt Count 182, MPV 10.1 10/14/17 05:55: Sodium 143, Potassium 4.3, Chloride 108 H, Carbon Dioxide 26.0, Anion Gap 9, BUN 22 H, Creatinine 1.11, Est GFR (MDRD) Af Amer 83, Est GFR (MDRD ) Non-Af 69, BUN/Creatinine Ratio 19.8, Glucose 118 H, Calcium 8.7, Triglycerides 192, Cholesterol 95, LDL Cholesterol 29, VLDL Cholesterol 38, HDL Cholesterol 28 L 10/14/17 05:55: PT 13.9, INR 1.1, APTT 26.3 Rhythm: Sinus rhythm/sinus bradycardia EKG: As noted above ECHO: 02/28/2016: Left ventricle normal with an LVEF of 60%; mild concentric LVH ; mild left atrial enlargement; trivial MR/TR; mild focal aortic valve thickening; trivial [place]; estimated RV systolic pressure of 31 mmHg Stress Test:: Exercise tolerance test/stress nuclear imaging study: Myocardial perfusion changes compatible with physiologic apical thinning with no myocardial perfusion changes consider diagnostic for associated stress-induced myocardial ischemia or previous myocardial injury/infarction: Gated LVEF of 60% Cardiac Cath: 03/01/2016: Left ventricle normal with an LVEF of 60%; left main coronary artery normal; LAD with proximal 10-25% eccentric stenosis; subsequent LAD with 85% irregular long stenosis; status post second diagonal branch occluded with the remainder the vessel filling from left to right collateral flow; LCx being a large codominant vessel with a left PDA with proximal 75% hazy eccentric appearing stenosis; RCA being a large codominant vessel with minimal luminal irregularities with collateral flow to the mid to distal LAD; mild MR PCI: Well 2015: PTCA/MADAY to the mid LAD with a 2.25?12 Promus synergy stent; successful PTCA/MADAY to the distal LCx with a 2.5?12 Promus synergy stent CXR: Preliminary evaluation as noted above: Please see official report Assessment/Plan 1. Chest discomfort The patient has had chest discomfort. The etiology is unclear to whether this represents his underlying CAD process or a non-CAD process. He is undergoing noninvasive evaluation thus far. His cardiac enzymes have been negative. His ECG has demonstrated no new acute changes. He is pending evaluation with an exercise tolerance test/imaging study. Depending upon his findings he may or may not need further invasive evaluation or care. 2. Bradycardia The patient does have an underlying sinus bradycardia. He has been on very low- dose beta-yesy therapy with metoprolol XL 12.5 mg p.o. daily. Ideally it would be good, from his cardiovascular history, to continue his beta- yesy therapy. However, if there is concern that his bradycardia, is contributing to any of his symptoms, then his beta-yesy therapy may need to be discontinued. However, if it appears that he does continue to require beta-yesy based on his cardiovascular history, and he remains bradycardic, and there are concerns that his bradycardia is contributing to any of his symptoms, then he may need to be considered for the possibility of future permanent pacemaker backup. 3. CAD status post LAD and LCx PCI/MADAY He does need to continue risk factor evaluation and care. He continues noninvasive evaluation at this time. Again depending upon findings he may need repeat invasive evaluation. Otherwise he may need to be considered for further noncardiac evaluation of his symptoms. 4. Hyperlipidemia He will continue risk factor evaluation care as deemed appropriate. 5. Hypertension He will continue medical management with adjustment of his medications as needed. 6. Vertigo He describes symptoms of vertigo. He should be further evaluated by internal medicine and if need be by neurology and/or ENT. Comment: The patient's case has been discussed and reviewed with the patient as well as his multiple family members present. This note was generated with [employer] dictation software. It may contain incorrect words, spelling, and punctuation that were not noted in checking the note before signing.
[2017-10-14] MEDS: Metoprolol Tartrate 25 MG Tablet 12.5 MG PO (11:39)
[2017-10-14] MEDS: Isosorbide Mononitrate 30 MG Tablet PO (11:39)
[2017-10-14] MEDS: Famotidine 20 MG Tablet PO (11:39)
--- NOTE | 2017-10-14 11:41 | STRESSREP ---
Stress Test Report Date: 10/14/2017 Procedure: Exercise tolerance test/imaging study Indications: Chest pain; CAD; PCI Consent: Per the patient Procedure: The patient exercised on a Chang protocol for 6 minutes and 30 seconds completing Stage II and 30 seconds of Stage III achieving a peak heart rate of 136 bpm (93 % predicted maximal heart rate) with a peak blood pressure 210/88 mmHg and a peak MET capacity of 7 METs. The baseline ECG demonstrated sinus bradycardia. The peak exercise ECG demonstrated [id number] nonspecific ST segment variability. There were no cardiac dysrhythmias pretest, during exercise, or recovery. The functional capacity was considered average. There was no complaint of chest discomfort during exercise or recovery. The examination was discontinued secondary to dyspnea. Impression: 1. Technically adequate (percent predicted maximal heart rate greater than 85%) exercise tolerance test 2. Peak exercise ECG demonstrated [id number] nonspecific ST segment variability 3. There were no cardiac dysrhythmias pretest, during exercise, or recovery. 4. Nuclear images pending Myocardial perfusion imaging study: Technique: The patient was injected with 12 mCi of technetium 99m Cardiolite and subsequently rest SPECT Cardiolite nuclear imaging was obtained in the horizontal long, vertical long, and short axis views. The patient exercised on a Chang protocol for 6 minutes and 30 seconds completing Stage II and 30 seconds of Stage III achieving a peak heart rate of 136 bpm (93 % predicted maximal heart rate) with a peak blood pressure 210/88 mmHg and a peak MET capacity of 7 METs. The patient was injected with 35 mCi of technetium 99m Cardiolite and subsequently stress SPECT Cardiolite nuclear imaging was obtained in the horizontal long, vertical long, and short axis views. A gated Cardiolite study at peak stress was obtained. Interpretation: Rest and stress SPECT Cardiolite nuclear imaging status post realignment, normalization, and attenuation correction, demonstrates a small area of subtle diminished tracer uptake near the apical segments without significant change between rest and stress. There is end systolic thickening and brightening. The gated Cardiolite study demonstrates myocardial thickening and inward wall motion. The reported LVEF is 65 %. Impression: 1. Rest and stress SPECT Cardiolite nuclear imaging demonstrate a small area of subtle diminished tracer uptake near the apical segments without significant change between rest and stress appearing compatible with physiologic apical thinning with no myocardial perfusion changes consider diagnostic for associated stress-induced myocardial ischemia or previous myocardial injury/infarction. 2. The gated Cardiolite study reports an LVEF of 65 %. This note was generated with [employer] software. It may contain incorrect words, spelling, and punctuation that were not noted in checking the note before signing.
--- NOTE | 2017-10-14 11:46 | STRESSREP_ITS ---
Stress Test Report Date: 10/14/2017 Procedure: Exercise tolerance test/imaging study Indications: Chest pain; CAD; PCI Consent: Per the patient Procedure: The patient exercised on a Chang protocol for 6 minutes and 30 seconds completing Stage II and 30 seconds of Stage III achieving a peak heart rate of 136 bpm (93 % predicted maximal heart rate) with a peak blood pressure 210/88 mmHg and a peak MET capacity of 7 METs. The baseline ECG demonstrated sinus bradycardia. The peak exercise ECG demonstrated [id number] nonspecific ST segment variability. There were no cardiac dysrhythmias pretest, during exercise, or recovery. The functional capacity was considered average. There was no complaint of chest discomfort during exercise or recovery. The examination was discontinued secondary to dyspnea. Impression: 1. Technically adequate (percent predicted maximal heart rate greater than 85% ) exercise tolerance test 2. Peak exercise ECG demonstrated [id number] nonspecific ST segment variability 3. There were no cardiac dysrhythmias pretest, during exercise, or recovery. 4. Nuclear images pending Myocardial perfusion imaging study: Technique: The patient was injected with 12 mCi of technetium 99m Cardiolite and subsequently rest SPECT Cardiolite nuclear imaging was obtained in the horizontal long, vertical long, and short axis views. The patient exercised on a Chang protocol for 6 minutes and 30 seconds completing Stage II and 30 seconds of Stage III achieving a peak heart rate of 136 bpm (93 % predicted maximal heart rate) with a peak blood pressure 210/88 mmHg and a peak MET capacity of 7 METs. The patient was injected with 35 mCi of technetium 99m Cardiolite and subsequently stress SPECT Cardiolite nuclear imaging was obtained in the horizontal long, vertical long, and short axis views. A gated Cardiolite study at peak stress was obtained. Interpretation: Rest and stress SPECT Cardiolite nuclear imaging status post realignment, normalization, and attenuation correction, demonstrates a small area of subtle diminished tracer uptake near the apical segments without significant change between rest and stress. There is end systolic thickening and brightening. The gated Cardiolite study demonstrates myocardial thickening and inward wall motion. The reported LVEF is 65 %. Impression: 1. Rest and stress SPECT Cardiolite nuclear imaging demonstrate a small area of subtle diminished tracer uptake near the apical segments without significant change between rest and stress appearing compatible with physiologic apical thinning with no myocardial perfusion changes consider diagnostic for associated stress-induced myocardial ischemia or previous myocardial injury/ infarction. 2. The gated Cardiolite study reports an LVEF of 65 %. This note was generated with [employer] software. It may contain incorrect words, spelling, and punctuation that were not noted in checking the note before signing.
--- NOTE | 2017-10-14 13:25 | DCINST_ITS ---
- Discharge Diagnoses Current Active Problems: Current Active and Chronic Problems (Last Updated 04/21/17 @ 10:36 by DANIELLE Molina) Vertigo (Acute) Bradycardia (Acute) chest pain You will use the following diet at home:: No restrictions Your food should be the consistency of: Regular Your liquids should be the consistency of: Regular/Thin Discharge Activity: Return to Normal Activity Weight Bearing Status: Weight bearing as tolerated Call your doctor if you observe: Shortness of breath, Dizziness, Chest pain Allergies/Adverse Reactions: Allergies No Known Allergies Allergy (Verified 04/21/17 10:51) Medications to take at Discharge Acetaminophen [Tylenol Tablet] 325 - 650 mg PO Q6H PRN PRN #0 tab 03/02/16 Nitroglycerin [Nitrostat] 0.4 mg SUBLINGUAL Q5M PRN #1 bottle 03/02/16 Aspirin [Aspirin, Baby] 81 mg PO DAILY@0800 10/13/17 Atorvastatin Calcium [Lipitor] 80 mg PO DAILY@2200 10/13/17 Clopidogrel Bisulfate [Plavix] 75 mg PO DAILY 10/13/17 Isosorbide Mononitrate [Imdur] 30 mg PO DAILY 10/13/17 Lisinopril [Zestril] 20 mg PO BID 10/13/17 Nitroglycerin 0.4 mg SL PRN PRN #30 tab.subl 10/14/17 The following prescriptions were given: Nitroglycerin 0.4 mg SL PRN PRN #30 tab.subl PRN Reason: Cardiac/Chest Pain Primary Care Physician: Kodi Ortiz MD [Primary Care Provider] - Please follow up with your Primary Care Physician in: one week Test Results: Test results from this visit will be discussed in further detail at your follow- up appointment, if applicable. Please Follow Up With: James Cha MD When: next Tuesday as planned. Please Follow Up With: Mikhail Del Valle MD When: two weeks- for vertigo Proposed Discharge Date: 10/14/17
--- NOTE | 2017-10-14 13:26 | PCM.DC.SUM ---
Discharge Date and Diagnosis - Problem List Patient Problems: Active and Suspected Problems (Last Updated 04/21/17 @ 10:36 by DANIELLE Molina) Vertigo (Acute) Bradycardia (Acute) Date of Admission: 10/13/17 Date of Discharge: 10/14/17 - Primary Discharge Diagnosis Active and Suspected Problems (Last Updated 04/21/17 @ 10:36 by DANIELLE Molina) Vertigo (Acute) Bradycardia (Acute) chest pain - Secondary Discharge Diagnosis Chronic Problems (Last Updated 04/21/17 @ 10:36 by DANIELLE Molina) Nicotine addiction (Chronic) Sleep-disordered breathing (Chronic) Left atrial enlargement (Chronic) LVH (left ventricular hypertrophy) (Chronic) Diabetes mellitus type 2 in obese (Chronic) Post PTCA (Chronic ~2016) LAD and circumflex CAD (coronary artery disease) (Chronic) Hyperlipidemia (Chronic) HTN (hypertension) (Chronic) PAC (premature atrial contraction) (Chronic) PVC (premature ventricular contraction) (Chronic) Hospital Course and Treatment Imaging Results: 10/14/17 05:55 Nuclear Stress Test - Treadmil [NM] Routine Diagnostic Data Chest X-Ray 10/13/17 16:23 IMPRESSION: There are no acute findings. Electronically Signed: Yandel Flynn MD at 18:03 EDT , Service support , Brain CT 10/13/17 16:40 IMPRESSION: Normal unenhanced CT scan of the brain. Electronically Signed: Yandel Flynn MD at 18:04 EDT , Service support , Laboratory Tests 10/13/17 10/13/17 10/13/17 16:35 16:35 16:35 WBC 9.0 RBC 4.94 Hgb 14.8 Hct 44.5 MCV 90.1 MCH 30.0 MCHC 33.3 RDW 13.1 RDW Differential 42.6 Plt Count 200 MPV 10.0 Immature Gran % (Auto) 0.100 Neut % (Auto) 72.1 H Lymph % (Auto) 19.3 [place] % (Auto) 6.5 Eos % (Auto) 1.8 Baso % (Auto) 0.2 Absolute Neuts (auto) 6.5 Absolute Lymphs (auto) 1.73 Total Counted Not Reportable PT INR APTT D-Dimer Quant (PE/DVT) < 0.27 L Sodium 139 Potassium 4.5 Chloride 106 Carbon Dioxide 28.0 Anion Gap 5 BUN 22 H Creatinine 1.13 Estim Creat Clear Calc 63.83 Est GFR (MDRD) Af Amer 81 Est GFR (MDRD) Non-Af 67 BUN/Creatinine Ratio 19.5 Glucose 112 H Calcium 10.1 Magnesium Troponin I < 0.015 Triglycerides Cholesterol LDL Cholesterol VLDL Cholesterol HDL Cholesterol 10/13/17 10/13/17 10/13/17 16:35 18:53 22:40 WBC RBC Hgb Hct MCV MCH MCHC RDW RDW Differential Plt Count MPV Immature Gran % (Auto) Neut % (Auto) Lymph % (Auto) [place] % (Auto) Eos % (Auto) Baso % (Auto) Absolute Neuts (auto) Absolute Lymphs (auto) Total Counted PT INR APTT D-Dimer Quant (PE/DVT) Sodium Potassium Chloride Carbon Dioxide Anion Gap BUN Creatinine Estim Creat Clear Calc Est GFR (MDRD) Af Amer Est GFR (MDRD) Non-Af BUN/Creatinine Ratio Glucose Calcium Magnesium 2.1 Troponin I < 0.015 < 0.015 Triglycerides Cholesterol LDL Cholesterol VLDL Cholesterol HDL Cholesterol 10/14/17 10/14/17 10/14/17 05:55 05:55 05:55 WBC 8.0 RBC 4.66 Hgb 14.2 Hct 42.0 MCV 90.1 MCH 30.5 MCHC 33.8 RDW 12.9 RDW Differential 42.1 Plt Count 182 MPV 10.1 Immature Gran % (Auto) Neut % (Auto) Lymph % (Auto) [place] % (Auto) Eos % (Auto) Baso % (Auto) Absolute Neuts (auto) Absolute Lymphs (auto) Total Counted PT 13.9 INR 1.1 APTT 26.3 D-Dimer Quant (PE/DVT) Sodium 143 Potassium 4.3 Chloride 108 H Carbon Dioxide 26.0 Anion Gap 9 BUN 22 H Creatinine 1.11 Estim Creat Clear Calc 64.98 Est GFR (MDRD) Af Amer 83 Est GFR (MDRD) Non-Af 69 BUN/Creatinine Ratio 19.8 Glucose 118 H Calcium 8.7 Magnesium Troponin I Triglycerides 192 Cholesterol 95 LDL Cholesterol 29 VLDL Cholesterol 38 HDL Cholesterol 28 L Operations: None Procedures: Stress test Summary of Care Provided: The patient is a 77 year old M with past medical history of coronary artery disease status post stents in 2016, hyperlipidemia, diabetes, anxiety and depression. Was admitted via the ED on H2 18 with a complaint of new onset left-sided chest pain which is described as pressure-like and radiated into the left upper extremity with assistive diaphoresis, shortness of breath and lightheadedness as well as nausea. He took sublingual nitro with some improvement but pain still persisted. He also had associated vertigo and said he had been having occasional vertigo for a while. He had a history of increased fatigue and also had bradycardia. Patient called his director of reservations Dr. Cha's office and was told to come to the ED. Workup in the ED was basically unremarkable apart from bradycardia with heart rate of 48. EKG showed sinus bradycardia and CT of the head was negative. Chest x-ray showed no acute findings. He was admitted to be managed for chest pain to rule out ACS. Stress test done was negative. Patient remained stable and per discussion with Dr. Cha, metoprolol was stopped on account of bradycardia. Patient remained stable even though he still complaining of some pressure-like pain over the left precordium and stated that he had resolved in the past with Tums. Patient seen and examined prior to discharge. He admitted to being under a lot of stress in his life which he thinks may have been contributing to this chest pain. He has a son who is lives with him and has substance abuse and patient has found this very difficult to live with. His sister has also been going to have very difficult time and this has impacted his family. This he thinks is a significant contributor which I concurred with and counseled patient to find time to rest and take care of himself. No shortness of breath, abdominal pain, diarrhea vomiting. Review of systems otherwise negative. o/e: Vital Signs Height 6 ft 1 in Weight: 255 lb 11.779 oz Weight in Pounds 255.7 lbs BMI 34.5 Pulse Ox 97 Temperature 97.7 F Pulse Rate 56 Respiratory Rate 18 Blood Pressure 136/76 Blood Pressure Position Semi-Fowlers []General: awake, alert, oriented x 3 and cooperative, Skin: normal color, turgor, no icterus, cyanosis. HEENT: AT/NC, EOMI, PERRLA, MMM, no carotid bruits or JVD noted. Lungs: CTA bilaterally, Heart: regular rate and rhythm; no gallop, rub audible. Abdomen: soft, obese, not tender to palpation, ND, normal BS, no hepatosplenomegaly Extremities: no cyanosis, clubbing, or edema. Neurological: patient awake, alert, oriented x 3; cognitive function intact; pupils equally reactive to light and accomodation; cranial nerves II-XII grossly normal, no nystagmus, moving all 4 extremities, no focal deficits Psychiatric: affect appears normal, Plan as stated above. He is to follow-up with his primary care doctor in 1 week, director of reservations next Tuesday and has also been given a referral to see ENT surgeon Dr Del Valle, o/a of vertigo. Discharge Diet: 2000 mg Sodium Diet Discharge Activity: Return to Normal Activity Weight Bearing Status: Weight bearing as tolerated Call your doctor if you observe: Shortness of breath, Dizziness, Chest pain Home Medications: Medications to take at Discharge Acetaminophen [Tylenol Tablet] 325 - 650 mg PO Q6H PRN PRN #0 tab 03/02/16 Nitroglycerin [Nitrostat] 0.4 mg SUBLINGUAL Q5M PRN #1 bottle 03/02/16 Aspirin [Aspirin, Baby] 81 mg PO DAILY@0800 10/13/17 Atorvastatin Calcium [Lipitor] 80 mg PO DAILY@2200 10/13/17 Clopidogrel Bisulfate [Plavix] 75 mg PO DAILY 10/13/17 Isosorbide Mononitrate [Imdur] 30 mg PO DAILY 10/13/17 Lisinopril [Zestril] 20 mg PO BID 10/13/17 Nitroglycerin 0.4 mg SL PRN PRN #30 tab.subl 10/14/17 Following Prescrptions Were Given to Patient: Nitroglycerin 0.4 mg SL PRN PRN #30 tab.subl PRN Reason: Cardiac/Chest Pain Primary Care Physician: Kodi Ortiz MD [Primary Care Provider] - Please follow up with your Primary Care Physician in: one week Please Follow Up With: James Cha MD When: tuesday as planned. Please Follow Up With: Mikhail Del Valle MD When: two weeks- for vertigo Disposition: Home Minutes spent on discharge:: 40 Patient Condition:: Stable Medical Necessity - Tobacco Use Smoking Status: Former smoker Tobacco Use: Non-smoker Meaningful Use Info Meaningful Use Diagnoses (Choose all that apply): None applicable Code Visit Inpatient E&M: 00671 Disch Hosp
--- NOTE | 2017-10-14 13:38 | DS.PCM_ITS ---
Discharge Date and Diagnosis - Problem List Patient Problems: Active and Suspected Problems (Last Updated 04/21/17 @ 10:36 by DANIELLE Molina) Vertigo (Acute) Bradycardia (Acute) Date of Admission: 10/13/17 Date of Discharge: 10/14/17 - Primary Discharge Diagnosis Active and Suspected Problems (Last Updated 04/21/17 @ 10:36 by DANIELLE Molina) Vertigo (Acute) Bradycardia (Acute) chest pain - Secondary Discharge Diagnosis Chronic Problems (Last Updated 04/21/17 @ 10:36 by DANIELLE Molina) Nicotine addiction (Chronic) Sleep-disordered breathing (Chronic) Left atrial enlargement (Chronic) LVH (left ventricular hypertrophy) (Chronic) Diabetes mellitus type 2 in obese (Chronic) Post PTCA (Chronic ~2016) LAD and circumflex CAD (coronary artery disease) (Chronic) Hyperlipidemia (Chronic) HTN (hypertension) (Chronic) PAC (premature atrial contraction) (Chronic) PVC (premature ventricular contraction) (Chronic) Hospital Course and Treatment Imaging Results: 10/14/17 05:55 Nuclear Stress Test - Treadmil [NM] Routine Diagnostic Data Chest X-Ray 10/13/17 16:23 IMPRESSION: There are no acute findings. Electronically Signed: Yandel Flynn MD at 18:03 EDT , Service support , Brain CT 10/13/17 16:40 IMPRESSION: Normal unenhanced CT scan of the brain. Electronically Signed: Yandel Flynn MD at 18:04 EDT , Service support , Laboratory Tests 10/13/17 10/13/17 10/13/17 16:35 16:35 16:35 WBC 9.0 RBC 4.94 Hgb 14.8 Hct 44.5 MCV 90.1 MCH 30.0 MCHC 33.3 RDW 13.1 RDW Differential 42.6 Plt Count 200 MPV 10.0 Immature Gran % (Auto) 0.100 Neut % (Auto) 72.1 H Lymph % (Auto) 19.3 [place] % (Auto) 6.5 Eos % (Auto) 1.8 Baso % (Auto) 0.2 Absolute Neuts (auto) 6.5 Absolute Lymphs (auto) 1.73 Total Counted Not Reportable PT INR APTT D-Dimer Quant (PE/DVT) < 0.27 L Sodium 139 Potassium 4.5 Chloride 106 Carbon Dioxide 28.0 Anion Gap 5 BUN 22 H Creatinine 1.13 Estim Creat Clear Calc 63.83 Est GFR (MDRD) Af Amer 81 Est GFR (MDRD) Non-Af 67 BUN/Creatinine Ratio 19.5 Glucose 112 H Calcium 10.1 Magnesium Troponin I < 0.015 Triglycerides Cholesterol LDL Cholesterol VLDL Cholesterol HDL Cholesterol 10/13/17 10/13/17 10/13/17 16:35 18:53 22:40 WBC RBC Hgb Hct MCV MCH MCHC RDW RDW Differential Plt Count MPV Immature Gran % (Auto) Neut % (Auto) Lymph % (Auto) [place] % (Auto) Eos % (Auto) Baso % (Auto) Absolute Neuts (auto) Absolute Lymphs (auto) Total Counted PT INR APTT D-Dimer Quant (PE/DVT) Sodium Potassium Chloride Carbon Dioxide Anion Gap BUN Creatinine Estim Creat Clear Calc Est GFR (MDRD) Af Amer Est GFR (MDRD) Non-Af BUN/Creatinine Ratio Glucose Calcium Magnesium 2.1 Troponin I < 0.015 < 0.015 Triglycerides Cholesterol LDL Cholesterol VLDL Cholesterol HDL Cholesterol 10/14/17 10/14/17 10/14/17 05:55 05:55 05:55 WBC 8.0 RBC 4.66 Hgb 14.2 Hct 42.0 MCV 90.1 MCH 30.5 MCHC 33.8 RDW 12.9 RDW Differential 42.1 Plt Count 182 MPV 10.1 Immature Gran % (Auto) Neut % (Auto) Lymph % (Auto) [place] % (Auto) Eos % (Auto) Baso % (Auto) Absolute Neuts (auto) Absolute Lymphs (auto) Total Counted PT 13.9 INR 1.1 APTT 26.3 D-Dimer Quant (PE/DVT) Sodium 143 Potassium 4.3 Chloride 108 H Carbon Dioxide 26.0 Anion Gap 9 BUN 22 H Creatinine 1.11 Estim Creat Clear Calc 64.98 Est GFR (MDRD) Af Amer 83 Est GFR (MDRD) Non-Af 69 BUN/Creatinine Ratio 19.8 Glucose 118 H Calcium 8.7 Magnesium Troponin I Triglycerides 192 Cholesterol 95 LDL Cholesterol 29 VLDL Cholesterol 38 HDL Cholesterol 28 L Operations: None Procedures: Stress test Summary of Care Provided: The patient is a 77 year old M with past medical history of coronary artery disease status post stents in 2016, hyperlipidemia, diabetes, anxiety and depression. Was admitted via the ED on H2 18 with a complaint of new onset left -sided chest pain which is described as pressure-like and radiated into the left upper extremity with assistive diaphoresis, shortness of breath and lightheadedness as well as nausea. He took sublingual nitro with some improvement but pain still persisted. He also had associated vertigo and said he had been having occasional vertigo for a while. He had a history of increased fatigue and also had bradycardia. Patient called his air brake tester Dr. Cha's office and was told to come to the ED. Workup in the ED was basically unremarkable apart from bradycardia with heart rate of 48. EKG showed sinus bradycardia and CT of the head was negative. Chest x-ray showed no acute findings. He was admitted to be managed for chest pain to rule out ACS. Stress test done was negative. Patient remained stable and per discussion with Dr. Cha, metoprolol was stopped on account of bradycardia. Patient remained stable even though he still complaining of some pressure-like pain over the left precordium and stated that he had resolved in the past with Tums. Patient seen and examined prior to discharge. He admitted to being under a lot of stress in his life which he thinks may have been contributing to this chest pain. He has a son who is lives with him and has substance abuse and patient has found this very difficult to live with. His sister has also been going to have very difficult time and this has impacted his family. This he thinks is a significant contributor which I concurred with and counseled patient to find time to rest and take care of himself. No shortness of breath, abdominal pain, diarrhea vomiting. Review of systems otherwise negative. o/e: Vital Signs Height 6 ft 1 in Weight: 255 lb 11.779 oz Weight in Pounds 255.7 lbs BMI 34.5 Pulse Ox 97 Temperature 97.7 F Pulse Rate 56 Respiratory Rate 18 Blood Pressure 136/76 Blood Pressure Position Semi-Fowlers []General: awake, alert, oriented x 3 and cooperative, Skin: normal color, turgor, no icterus, cyanosis. HEENT: AT/NC, EOMI, PERRLA, MMM, no carotid bruits or JVD noted. Lungs: CTA bilaterally, Heart: regular rate and rhythm; no gallop, rub audible. Abdomen: soft, obese, not tender to palpation, ND, normal BS, no hepatosplenomegaly Extremities: no cyanosis, clubbing, or edema. Neurological: patient awake, alert, oriented x 3; cognitive function intact; pupils equally reactive to light and accomodation; cranial nerves II-XII grossly normal, no nystagmus, moving all 4 extremities, no focal deficits Psychiatric: affect appears normal, Plan as stated above. He is to follow-up with his primary care doctor in 1 week , air brake tester next Tuesday and has also been given a referral to see ENT surgeon Dr Del Valle, o/a of vertigo. Discharge Diet: 2000 mg Sodium Diet Discharge Activity: Return to Normal Activity Weight Bearing Status: Weight bearing as tolerated Call your doctor if you observe: Shortness of breath, Dizziness, Chest pain Home Medications: Medications to take at Discharge Acetaminophen [Tylenol Tablet] 325 - 650 mg PO Q6H PRN PRN #0 tab 03/02/16 Nitroglycerin [Nitrostat] 0.4 mg SUBLINGUAL Q5M PRN #1 bottle 03/02/16 Aspirin [Aspirin, Baby] 81 mg PO DAILY@0800 10/13/17 Atorvastatin Calcium [Lipitor] 80 mg PO DAILY@2200 10/13/17 Clopidogrel Bisulfate [Plavix] 75 mg PO DAILY 10/13/17 Isosorbide Mononitrate [Imdur] 30 mg PO DAILY 10/13/17 Lisinopril [Zestril] 20 mg PO BID 10/13/17 Nitroglycerin 0.4 mg SL PRN PRN #30 tab.subl 10/14/17 Following Prescrptions Were Given to Patient: Nitroglycerin 0.4 mg SL PRN PRN #30 tab.subl PRN Reason: Cardiac/Chest Pain Primary Care Physician: Kodi Ortiz MD [Primary Care Provider] - Please follow up with your Primary Care Physician in: one week Please Follow Up With: James Cha MD When: tuesday as planned. Please Follow Up With: Mikhail Del Valle MD When: two weeks- for vertigo Disposition: Home Minutes spent on discharge:: 40 Patient Condition:: Stable Medical Necessity - Tobacco Use Smoking Status: Former smoker Tobacco Use: Non-smoker Meaningful Use Info Meaningful Use Diagnoses (Choose all that apply): None applicable Code Visit Inpatient E&M: 56156 Disch Hosp
--- NOTE | 2017-10-14 13:44 | CHAPLAIN ---
Type of Pastoral Visit _x__ Initial Visit ___ Follow-up Visit ___ On-call Visit ___ General Patient Visit ___ Spiritual Assessment ___ Family Conference ___ Bereavement ___ Rapid Response ___ Code Blue ___ Other (describe below) Pastoral Care Referral From _x__ Patient ___ Family ___ Nurse ___ Physician ___ Heel Coverer Machine Operator ___ Tube Drawer ___ Other (describe below) Sacrament/Intervention _x__ Active listening ___ Anointing ___ Temple ___ Bereavement ___ Communion _x__ Rachna exploration ___ _x__ Life review _x__ Prayer ___ Reconciliation ___ Sacrament of Sick _x__ Supportive presence ___ Wedding ___ Other (describe below) Pastoral Comments patient talked extensively about family issues including grief, addiction, etc. that are concerns for him and caused further questions about rachna; prayer welcomed, listening ear was accepted
--- NOTE | 2017-10-14 14:00 | CASEMGMT ---
DEVANTE MAZA NOTE: Face to face with pt. Pt states is independent @ home and denies having any needs or concerns with returning home. Pt states he lives with his and she will be transporting him home upon discharge from hospital. Lety GARNER RN, CM
== END 2017-10-14 13:25 | disposition home or self-care (01) ==
LOC: ED 16:59 → PCU 18:55
PROVIDERS: Admitting Provider Family Medicine; Emergency Provider Emergency Medicine; Family Provider Family Medicine; PCP Family Medicine; Visit Provider Student in an Organized Health Care Education/Training Program
DX: R07.89 Other chest pain (principal); I25.10 Atherosclerotic heart disease of native coronary artery without angina pectoris; I10 Essential (primary) hypertension; R06.02 Shortness of breath; R42 Dizziness and giddiness; R00.1 Bradycardia, unspecified; E78.5 Hyperlipidemia, unspecified; E66.9 Obesity, unspecified; Z95.5 Presence of coronary angioplasty implant and graft; Z79.899 Other long term (current) drug therapy; Z79.02 Long term (current) use of antithrombotics/antiplatelets; Z79.82 Long term (current) use of aspirin; Z87.891 Personal history of nicotine dependence; Z68.33 Body mass index [BMI] 33.0-33.9, adult; Z71.3 Dietary counseling and surveillance
CPT/HCPCS: 36415; 70450; 71045; 78452; 80048; 80061; 83735; 84484; 85025; 85027; 85379; 85610; 85730; 93005; 93017; 96360; 96361; 97802; 99218; 99283; A9500; J7030; A4216; G0378

== ENCOUNTER → 2017-11-17 09:15 | Outpatient (CLI) | payer OTHER, MEDICARE, SELFPAY ==
[2016-03-01 15:34] VITALS: BMI 34.5
== END ==
PROVIDERS: Family Provider Family Medicine; PCP Family Medicine; Visit Provider Internal Medicine Gastroenterology
DX: K21.9 Gastro-esophageal reflux disease without esophagitis (principal)
CPT/HCPCS: 74220

== ENCOUNTER → 2017-11-22 11:29 | Outpatient (CLI) | payer OTHER, MEDICARE, SELFPAY ==
[2016-03-01 15:34] VITALS: BMI 34.5
--- NOTE | 2017-11-22 11:34 | RAD_ITS ---
STUDY: X-RAY - PELVIS REASON FOR EXAM: Male, 77 years old. Sciatica. TECHNIQUE: One view of the pelvis was obtained. COMPARISON: None. FINDINGS: There is a non-specific bowel gas pattern. There are atherosclerotic vascular calcifications of the pelvic arteries. Normal bilateral iliac wings, sacroiliac joints and visualized sacrum. Normal visualized bilateral superior and inferior pubic rami. Normal pubic symphysis. Normal ischial tuberosities. Normal visualized right femoral head. Normal right acetabulum. Normal right hip joint. Normal visualized left femoral head. Normal left acetabulum. Normal left hip joint. RAD/Hips B/L min 2 views w/ Pelvis IMPRESSION: Normal x-ray examination of the pelvis. Electronically Signed: Gary Almonte MD at 18:21 EDT , Service support ,
== END ==
PROVIDERS: Family Provider Family Medicine; PCP Family Medicine; Visit Provider Family Medicine
DX: M25.551 Pain in right hip (principal); M25.552 Pain in left hip
CPT/HCPCS: 73521

== ENCOUNTER → 2018-01-26 11:40 | Outpatient (CLI) | payer OTHER, MEDICARE, SELFPAY ==
[2016-03-01 15:34] VITALS: BMI 34.5
[2018-01-26 14:20] LABS: ALB/GLOB Ratio 1.1 RATIO (0.9-2.4); AST(SGOT) 25 U/L (15-37); Alanine Aminotransfer ALT/SGPT 36 U/L (16-61); Albumin, Serum 3.8 g/dL (3.2-5.0); Alkaline Phosphatase 78 U/L (45-117); Anion Gap 9 (5-15); BUN 22 mg/dL (7-18); BUN/Creat Ratio 20.2 RATIO (10-20); Calcium,Total 9.4 mg/dL (8.5-10.1); Chloride 104 mmol/L (98-107); Creatinine, Serum 1.09 mg/dL (0.70-1.30); EST Glomerular Filtration Rate 70 mL/min (>60); Est Glom Filt Rate - Afr Amer 85 mL/min (>60); Globulin 3.6 g/dL (2.2-4.2); Glucose 106 mg/dL (74-106); Magnesium 1.8 mg/dL (1.6-2.6); Potassium 4.3 mmol/L (3.5-5.1); Protein, Total 7.4 g/dL (6.4-8.2); Sodium Level 141 mmol/L (136-145)
[2018-01-26 14:26] LABS: Hemoglobin A1c 6.2 % (4.2-6.3)
== END ==
PROVIDERS: Family Provider Family Medicine; PCP Family Medicine; Visit Provider Family Medicine
DX: M62.81 Muscle weakness (generalized) (principal); I10 Essential (primary) hypertension; R73.03 Prediabetes
CPT/HCPCS: 36415; 80053; 82306; 83036; 83735

== ENCOUNTER → 2018-02-03 07:08 | Outpatient (CLI) | payer OTHER, MEDICARE, SELFPAY ==
[2016-03-01 15:34] VITALS: BMI 34.5
--- NOTE | 2018-02-03 07:45 | MRI_ITS ---
STUDY: MRI LUMBAR SPINE WITHOUT CONTRAST REASON FOR EXAM: Male, 77 years old. Left lower extremity weakness and numbness TECHNIQUE: Standardized fat and water weighted pulse sequences were obtained in the sagittal and axial planes. COMPARISON: None FINDINGS: No evidence for acute fracture or subluxation. Interosseous hemangioma within the L2 vertebral body T12-L1: Normal endplates. Normal disc height, desiccation and normal morphology. Normal bilateral facet joints. Normal central canal and bilateral lateral recesses. Normal bilateral intervertebral neural foramina. Normal lumbar lordosis. There is no substantial scoliosis. Normal conus medullaris that terminates at T12-L1 L1-2: Normal endplates. Normal disc height, desiccation and minor annular bulge.. Normal bilateral facet joints. Normal central canal and bilateral lateral recesses. Normal bilateral intervertebral neural foramina. L2-3: Normal endplates. Normal disc height, desiccation and minor annular bulge with small bilateral foraminal disc protrusions... Normal bilateral facet joints. Normal central canal and bilateral lateral recesses. Moderate bilateral foraminal stenosis L3-4: Normal endplates. Normal disc height, desiccation and mild annular bulge with small right foraminal disc protrusion.. Minor facet arthropathy and thickening of ligamenta flava.. Normal central canal and mild bilateral recess encroachment. Mild left neuroforaminal stenosis and moderate narrowing on the right L4-5: Normal endplates. Normal disc height, desiccation and minimal annular bulge.. Mild facet arthropathy. Normal central canal. Moderate bilateral recess and neuroforaminal stenosis L5-S1: Grade 1 spondylolisthesis Degenerative endplate changes.. Narrowed disc space with desiccation of the disc and mild bulging disc osteophyte complex. Bilateral facet arthropathy normal central canal. Moderate bilateral recess and severe neuroforaminal stenosis greater on the left exaggerated by shortened pedicles Normal visualized sacral ala. Normal visualized paraspinous soft tissue structures. MRI/Spine Lumbar (Routine) IMPRESSION: No evidence for acute fracture or subluxation. 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 Findings as above Electronically Signed: Óscar Cronin MD at 23:12 EST , Service support ,
== END ==
PROVIDERS: Family Provider Family Medicine; PCP Family Medicine; Referring Provider Family Medicine; Visit Provider Family Medicine
DX: M62.81 Muscle weakness (generalized) (principal)
CPT/HCPCS: 72148

== ENCOUNTER → 2018-03-01 08:54 | Outpatient (CLI) | payer OTHER, MEDICARE, SELFPAY ==
[2016-03-01 15:34] VITALS: BMI 34.5
[2018-02-13 10:57] VITALS: BMI 33.7
--- NOTE | 2018-03-01 08:57 | RAD_ITS ---
PROCEDURE: Fluoroscopic guided Hip Injection DATE: March 01, 2018. INDICATION: Male, 77 years old. Chronic right hip pain. PHYSICIAN: Donny Marion M.D. MEDICATIONS: 6 mg of barium applesauce and a 3 cc of 1% lidocaine. 2% Lidocaine administered subcutaneously for local anesthesia. ACCESS SITE: Right hip. NEEDLE: 22-gauge spinal needle. FLUOROSCOPY TIME (if supplied): (0:23) minutes/seconds FINDINGS: The risks, benefits, and alternatives to the procedure were explained to the patient. The specific risks of bleeding, infection, and neurovascular injury were detailed and accepted. Witnessed informed consent was obtained. A 22-gauge spinal needle was positioned under radiographic fluoroscopic localization. Approximately 2 cc of [id number] instilled for localization purposes. Medication was then injected. The patient tolerated the procedure well without any immediate complications. The patient was placed supine with head elevated and returned to the floor in stable condition. RAD/Inj/Asp Vargas Jt Should/Hip/Knee IMPRESSION: 1. Successful fluoroscopic guided hip injection. Electronically Signed: Donny Marion MD at 10:00 EST Tel [phone], Service support ,
--- OUTSIDE RECORDS SUMMARY | 2018-06-02 09:29 | XMS RPT_ITS ---
:1940 Author Organization OHIP Support Name Relationship Address Phone NORSCH Unavailable [address] + [address] [place] [address] ELVI, VENDI Unavailable [address] + [place] [address] NORSCH Unavailable [address] + [address] [place] [address] ELVI, VENDI Unavailable [address] + [place] [address] NORSCH Unavailable [address] + [address] [place] [address] ELVI, VENDI Unavailable [address] + [place] [address] NORSCH Unavailable [address] + [address] [place] [address] ELVI, VENDI Unavailable [address] + [place] [address] NORSCH Unavailable [address] + [address] [place] [address] ELVI, VENDI Unavailable [address] + [place] [address] NORSCH Unavailable [address] + [address] [place] [address] ELVI, VENDI Unavailable [address] + [place] [address] NORSCH Unavailable [address] + [address] [place] [address] ELVI, VENDI Unavailable [address] + [place] [address] NORSCH Unavailable [address] + [address] [place] [address] ELVI, VENDI Unavailable [address] + [place] [address] NORSCH Unavailable [address] + [address] [place] [address] ELVI, VENDI Unavailable [address] + [place] [address] NORSCH Unavailable [address] + [address] [place] [address] ELVI, VENDI Unavailable [address] + [place] [address] NORSCH Unavailable [address] + [address] [place] [address] ELVI, VENDI Unavailable [address] + [place] [address] NORSCH Unavailable [address] + [address] [place] [address] ELVI, VENDI Unavailable [address] + [place] [address] NORSCH Unavailable [address] + [address] [place] [address] ELVI, VENDI Unavailable [address] + [place] [address] NORSCH Unavailable [address] + [address] [place] [address] ELVI, VENDI Unavailable [address] + [place] [address] NORSCH Unavailable [address] + [address] [place] [address] ELVI, VENDI Unavailable [address] + [place] [address] NORSCH Unavailable [address] + [address] [place] [address] ELVI, VENDI Unavailable [address] [phone] [place] [address] Care Team Providers Name Role Phone Ishmael Rutledge Attending Unavailable Ishmael Rutledge Referring Unavailable Kodi Suero Primary Care Unavailable Olivier Ayala Attending Unavailable Kodi Suero Primary Care Unavailable Olivier Ayala Referring Unavailable Lorena Monge Attending Unavailable Kodi Suero Referring Unavailable Suero, Kodi Primary Care Unavailable Suero, Kodi Primary Care Unavailable White, Nitza Admitting Unavailable Koram, Gunjan Annabella Attending Unavailable Moodispaw, James Consulting Unavailable White, Nitza Admitting Unavailable White, Ntiza Attending Unavailable Suero, Kodi Primary Care Unavailable White, Nitza Consulting Unavailable White, Nitza Admitting Unavailable Moodispaw, James Attending Unavailable Suero, Kodi Primary Care Unavailable Moodispaw, James Consulting Unavailable Koram, Gunjan Annabella Consulting Unavailable White, Nitza Admitting Unavailable Koram, Gunjan Annabella Attending Unavailable Suero, Kodi Primary Care Unavailable Moodispaw, James Consulting Unavailable Koram, Gunjan Annabella Consulting Unavailable Lorena Monge Attending Unavailable Suero, Kodi Referring Unavailable Suero, Kodi Primary Care Unavailable Moodispaw, James Attending Unavailable Suero, Kodi Referring Unavailable Suero, Kodi Primary Care Unavailable Moodispaw, James Attending Unavailable White, Nitza Referring Unavailable Jabour, Ned Attending Unavailable Jabour, Ned Referring Unavailable Suero, Kodi Primary Care Unavailable Suero, Kodi Attending Unavailable Suero, Kodi Referring Unavailable Suero, Kodi Primary Care Unavailable Suero, Kodi Attending Unavailable Suero, Kodi Primary Care Unavailable Suero, Kodi Attending Unavailable Suero, Kodi Referring Unavailable Suero, Kodi Primary Care Unavailable Riddle, Lorena Attending Unavailable Moodispaw, James Attending Unavailable Suero, Kodi Referring Unavailable PROBLEMS PROBLEMS DATE TYPE CONDITION / CODE ATTENDING STATUS SOURCE Unknown M51.26 - Other GilbertoOlivier rivasoster 9 intervertebral disc Community displacement, lumbar Hospital region / M51.26(ICD-10) Repository Unknown M43.16 - Olivier Ayala [place] 9 Spondylolisthesis, lumbar Community region / M43.16(ICD-10) Hospital Repository Unknown I10 - Essential (primary) Kodi Suero Active [place] 8 hypertension / Community I10(ICD-10) Hospital Repository Unknown M62.81 - Muscle weakness oKdi Suero Active [place] 8 (generalized) / Community M62.81(ICD-10) Hospital Repository Unknown M25.551 - Pain in right Kodi Suero Active [place] 8 hip / M25.551(ICD-10) [facility] Hospital Repository Unknown M25.552 - Pain in left Kodi Suero Active [place] 8 hip / M25.552(ICD-10) [facility] Hospital Repository Unknown K21.9 - Gastro-esophageal Jabour, Active [place] 8 reflux disease without [facility] esophagitis / Hospital K21.9(ICD-10) Repository Unknown R00.2 - Palpitations / Moodispaw, Active [place] 8 R00.2(ICD-10) [facility] Repository Unknown R00.1 - Bradycardia, Mood[place]aw, Active [place] 8 unspecified / [facility] R00.1(ICD-10) Hospital Repository Unknown I25.10 - Atherosclerotic Monge, Active [place] 8 heart disease of chenega [facility] coronary artery without Hospital angina pectoris / Repository I25.10(ICD-10) Unknown E78.00 - Pure Monge, Active [place] 8 hypercholesterolemia, [facility] unspecified / Hospital E78.00(ICD-10) Repository Unknown E78.0 - Pure Monge, Active [place] 8 hypercholesterolemia / [facility] E78.0(ICD-10) Hospital Repository PROCEDURES PROCEDURES No Procedure Records FoundRESULTS RESULTS INITAL EVALUATION (1) Observed: 03/23/2018 Status: F Source: [place] - PT 5:46 PM [facility] REPOSITORY [facility] Physical [facility] [address] [place] [address] [address] [place] [address] / REHABILITATION SERVICES INITIAL EVALUATION MR#: [id number] Acct: [id number] Name: SACHA BOLES Rep #: [id number] : 1940 77 From: Sacha Carias PT Cert. MDT, OCS Referring Dr.: Olivier SANTOS Status: REG RCR Insurance: [employer] [place] MEDICARE PART A B Patient's Visit Information SACHA BOLES is a 77 year old M referred to Physical Therapy by Olivier Ayala PA-C with a diagnosis of OTHER INTERVERTRBRAL DISC DISPLACEMENT LUMBAR ,SPONDYLOTHEISIS LUMBAR. Date of Evaluation: 03/22/18 Physical Therapist: Sacha Carias PT, Cert MDT, OCS - Visit Plan Frequency: 2x /Week Duration: 4 Weeks Plan: LUMBAR FLEXION ,DLS ABD/BACK,POSTURAL EX'S,MODALITIES TO INCLUDE LOSSING LUMBAR TRACTION - Subjective Findings: This 77 y/o male presents to physical therapy with lumbar pain with radiculopathy left leg.Toby has had left lumbar pain with radiculopathy for for years with symptoms intermmitant with prgressively worse. Patient seen orthopedic recommeded pain management for injections. Patient had MRI severe foraminal stenosis left,spinal,protrusion.Symptoms worse standing,walking. Patient symptoms better with rest sitting. Loaction of symptoms lateral hip to ankle. Patient c/o of parthesia tingling below knee to feet.Cough/sneezing -. Bowel/badder -. Patient has no PT in past. Patient had injection lright hip. Patient symptoms affects QOL and function. SOCIAL: . 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 GAIT: antalgic gait mild foward posture reciprocal pattern. NUERO: c/o parathesia/tingling ,sharp test +,reflexes L3-4,L4-5,L5-S1 1/3. SYMMTRIES: align. PALPATION: unremarkable. MMT: quads/hams 4/5,hip flexion 4-/5,ankle 4/5. LUMBAR ROM: flexion min loss ,extension mod loss,side glides min/mod loss,. FLEXABLITY: hams mod loss ,piriformis mod loss right - Special Tests L/S Slump test left side: Negative L/S Slump test right side: Negative Lumbar Standing: Flexion - Mechanical Response: No effect Lumbar Standing: Flexion - Symptoms During Testing: No effect Lumbar Standing: Flexion - Symptoms After Testing: No effect Lumbar Standing: Extension - Mechanical Response: No effect Lumbar Standing: Extension - Symptoms During Testing: Increases Lumbar Standing: Extension - Symptoms After Testing: Worse Lumbar Lying: Flexion - Mechanical Response: No effect Lumbar Lying: Flexion - Symptoms During Testing: Decreases Lumbar Lying: Flexion - Symptoms After Testing: Better - Goals Goal 1:: Independant with HEP Goal Time Frame: 4-6 Weeks Goal 2:: Independant with posture for ADL'S Goal Time Frame: 4-6 Weeks Goal 3:: Decrease lumbar pain with radicular symptoms left leg by 50% to improve walking and standing Goal Time Frame: 4-6 Weeks Goal 4:: Patient to improve BACK FINA score by 5 points to improve QOL. 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 Rehabilitation Potential: Good - Anticipated Interventions Patient/Client Instruction: Educate patient on: Condition, Plan of Care For the Purpose of:: To decrease pain, To increase ROM, To improve muscle performance and motor function, To improve ability to perform ADL's, To increase tolerance to activity/condition/position, To improve ability of physical actions for home/community/work/leisure, To improve health of tissue, To decrease soft tissue restriction, To reduce risk of recurrence, To improve ability to perform tasks related to life management Therapeutic Exercise to Include: Strength training, Postural training, Flexibilty training, Dynamic Lumbar Stabilization For the Purpose of:: To decrease pain, To increase ROM, To improve muscle performance and motor function, To increase tolerance to activity/condition/position, To improve ability of physical actions for home/community/work/leisure, To improve health of tissue, To decrease soft tissue restriction, To increase flexibility/ROM, To reduce risk of recurrence, To improve ability to perform tasks related to life management TENS: Yes IF ES: Yes Thermo therapy (hot pack): Yes Ultrasound (thermal/non thermal): Yes Pelvic traction supine: Yes For the Purpose of:: To decrease pain, To increase ROM, To improve muscle performance and motor function, To improve ability to perform ADL's, To increase tolerance to activity/condition/position, To improve ability of physical actions for home/community/work/leisure, To improve health of tissue, To decrease soft tissue restriction, To increase flexibility/ROM, To improve ability to perform tasks related to life management Thank you for the opportunity to evaluate your patient. For Medicare and Medicare HMO plans, please review the plan of care and approve it. It will need to be FAXED BACK to us at [phone] for Medicare purposes. For Medicare only, by signing this I certify the plan of care. Please let me know if there are questions or concerns regarding this plan of care. Physician Signature: Date: <Electronically signed by Sacha Carias PT, Cert. T, OCS> 03/23/18 1746 CC: Kodi Suero MD; Olivier SANTOS SATHISH Signed INJ/ASP EVANGELINA JT Observed: 03/01/2018 Status: F Source: [place] SHOULD/HIP/KNEE 8:57 AM [facility] REPOSITORY [facility] Imaging Services [address] [place] [address] Inj/Asp Evangelina Jt Should/Hip/Knee MR#: [id number] Acct: [id number] Name: SACHA BOLES Rep #: [id number] : 1940 M 77 From: Donny Marion MD PCP: Kodi Suero MD Status: REG CLI Study: Inj/Asp Evangelina Jt Should/Hip/Knee Date of Exam: 03/01/18 Exam# [id number] Ordering Dr: Ishmael Rutledge MD PROCEDURE: Fluoroscopic guided Hip Injection DATE: March 01, 2018. INDICATION: Male, 77 years old. Chronic right hip pain. PHYSICIAN: Donny Marion M.D. MEDICATIONS: 6 mg of barium applesauce and a 3 cc of 1% lidocaine. 2% Lidocaine administered subcutaneously for local anesthesia. ACCESS SITE: Right hip. NEEDLE: 22-gauge spinal needle. FLUOROSCOPY TIME (if supplied): (0:23) minutes/seconds FINDINGS: The risks, benefits, and alternatives to the procedure were explained to the patient. The specific risks of bleeding, infection, and neurovascular injury were detailed and accepted. Witnessed informed consent was obtained. A 22-gauge spinal needle was positioned under radiographic fluoroscopic localization. Approximately 2 cc of Isovue-300 instilled for localization purposes. Medication was then injected. The patient tolerated the procedure well without any immediate complications. The patient was placed supine with head elevated and returned to the floor in stable condition. RAD/Inj/Asp Evangelina Jt Should/Hip/Knee IMPRESSION: 1. Successful fluoroscopic guided hip injection. Electronically Signed: Donny Marion MD at 10:00 EST Tel [phone], Service support , CC: Kodi Suero MD; Ishmael Rutledge MD Garment Liner: Signed CARDIOLOGY VISIT Observed: 02/13/2018 Status: F Source: [place] REPORT 11:25 AM [facility] REPOSITORY [facility] [address] [place] [address] OFFICE VISIT Date of Service: 02/13/18 MR#: [id number] Acct: [id number] Name: SACHA BOLES Rep #: [id number] : 1940 Provider: James Cristina MD Age/Sex: 77/M Location: [facility] Status: Signed HPI HPI Details: SACHA BOLES, is a 77 M who presents to the office today for outpatient cardiovascular follow-up. Overall from a cardiac standpoint he states he is doing well with no symptoms similar to what he had prior to his PCI. There has been no issues with ongoing classic angina pectoris or the use of nitroglycerin sublingual. There has been no issues with CHF or pulmonary edema. There has been no near syncope or syncope. He states his main concern right now is low back and hip discomfort. He has been evaluated with an MRI. He believes he has an element of spinal stenosis. He is pending evaluation by orthopedic surgery. Intake Vital Signs02/13/18 Body Mass Index (BMI) 33.7 02/13/18 Blood Pressure 130/80 02/13/18 Height 6 ft 1 in 02/13/18 Weight: 259 lb 02/13/18 Body Mass Index (BMI) 34.2 02/13/18 Blood Pressure 136/72 H Intake Visit Reasons: 9 M FU Allergies No Known Allergies Allergy (Verified 02/13/18 10:46) Medications Acetaminophen [Tylenol Tablet] 325 - 650 mg PO Q6H PRN PRN #0 tab 03/02/16 [Rx Confirmed 02/13/18] Aspirin [Aspirin, Baby] 81 mg PO DAILY@0800 10/13/17 [History Confirmed 02/13/18] Atorvastatin Calcium [Lipitor] 80 mg PO DAILY@2200 10/13/17 [History Confirmed 02/13/18] Clopidogrel Bisulfate [Plavix] 75 mg PO DAILY 10/13/17 [History Confirmed 02/13/18] Isosorbide Mononitrate [Imdur] 30 mg PO DAILY 10/13/17 [History Confirmed 02/13/18] Lisinopril [Zestril] 20 mg PO BID 10/13/17 [History Confirmed 02/13/18] Nitroglycerin 0.4 mg SL PRN PRN #30 tab.subl 10/14/17 [Rx Confirmed 02/13/18] PFSH Medical History Presence of stent in coronary artery (Resolved 03/01/16) Essential hypertension (Chronic) Atherosclerotic heart disease of [place] coronary artery without angina pectoris (Chronic) Vertigo (Acute) Bradycardia (Acute) Palpitations (Inactive) Chest discomfort (Acute) Unstable angina (Inactive) Nicotine addiction (Chronic) Sleep-disordered breathing (Chronic) Left atrial enlargement (Chronic) LVH (left ventricular hypertrophy) (Chronic) Diabetes mellitus type 2 in obese (Chronic) Hyperlipidemia (Chronic) Unstable angina pectoris (Inactive) NSTEMI (non-ST elevated myocardial infarction) (Resolved) PAC (premature atrial contraction) (Chronic) PVC (premature ventricular contraction) (Chronic) CAD (coronary artery disease) (Inactive) HTN (hypertension) (Inactive) Surgical History Presence of coronary angioplasty implant and graft (Resolved 03/01/16) History of tonsillectomy (Resolved) Post PTCA (Inactive 2015) Family History Mother Diabetes Cancer Father CVA (cerebral vascular accident) Social History Smoking Status: Former smoker alcohol intake: current alcohol intake frequency: a few times a month caffeine: No ROS Const Const: Negative for fatigue, weakness, weight gain, weight loss, frequent falls or excessive sweating Eyes Eyes: Negative for change in vision, blurry vision or transient loss of vision ENT ENT: Negative for dizziness or balance problems Cardio Chest Pain: No Palpitations: Yes (occasional) feels like its: other (flutter) Edema: None Muscle aches with walking: None Resp Respiratory: Negative for SOB with activity or SOB at rest GI GI: Negative vomiting or vomiting blood/hematemesis : Negative for hematuria Musc Musc: Positive for muscle aches/ myalgia (rt hip pain; sciatica nerve pain); negative for balance problems, muscle weakness or joint pain Skin Skin: Negative non-healing lesions or rash Neuro Neuro: Positive for other (bilater pedals are numb); negative for weakness, blurry vision, dizziness, lightheadedness, frequent falls or orthostatic symptoms Jayce Hematologic/Lymphatic: Negative for easy bleeding Endo Endo: Negative for fatigue or excessive sweating Psych Psych: Negative for anxiety or depression Allergy Allergy/Immunology: Negative for hives, Negative for rash Cardiology Exam Const Appearance: cooperative, no acute distress, well developed, healthy appearing, comfortable and well groomed Nutritional Appearance: overweight Orientation: alert, awake and oriented x3 Head Head: normocephalic, atraumatic and normal to inspection Ears: hearing grossly normal bilaterally Nose: external nose normal Face and Sinus: face symmetric Mouth: moist mucous membranes Teeth and gingiva: fair dentition Eyes Eyelids: eyelids normal Conjunctivae: conjunctivae normal Pupils: PERRL EOM: EOM intact bilaterally Neck Neck: normal visual inspection, no lymphadenopathy, no JVD and full ROM Carotids: normal carotid upstroke; negative bruit Neck Mass: Negative Neck mass Chest Chest inspection: normal inspection of the chest, symmetric chest movement and normal respiratory effort Auscultation: Bilateral: Clear to Auscultation Cardio Palpation: normal PMI Rate: regular rate Rhythm: regular rhythm Heart sounds: S1 normal and S2 normal; negative rub, gallop or murmur GI GI: normal to inspection, soft and bowel sounds present; negative tender Neuro General: alert, awake, oriented x3 and moves all extremities Skin Skin: no rashes or lesions noted Extremities Pulses: Normal: Right Posterior Tibial Pulse, Left Posterior Tibial Pulse, Right Radial Pulse, Left Radial Pulse Lower Extremity Edema: None: Bilateral Psych Psychological: normal affect Supplemental Info Stress test: 10/14/2017 The patient exercised on a Chang protocol for 6 minutes and 30 seconds completing Stage II and 30 seconds of Stage III achieving a peak heart rate of 136 bpm (93 % predicted maximal heart rate) with a peak blood pressure 210/88 mmHg and a peak MET capacity of 7 METs. The baseline ECG demonstrated sinus bradycardia. The peak exercise ECG demonstrated ajmp-[id number] nonspecific ST segment variability. There were no cardiac dysrhythmias pretest, during exercise, or recovery. The functional capacity was considered average. There was no complaint of chest discomfort during exercise or recovery. The examination was discontinued secondary to dyspnea. Impression: 1. Technically adequate (percent predicted maximal heart rate greater than 85%) exercise tolerance test 2. Peak exercise ECG demonstrated twal-wi-yhej nonspecific ST segment variability 3. There were no cardiac dysrhythmias pretest, during exercise, or recovery. 4. Nuclear images pending Myocardial perfusion imaging study: Technique: The patient was injected with 12 mCi of technetium 99m Cardiolite and subsequently rest SPECT Cardiolite nuclear imaging was obtained in the horizontal long, vertical long, and short axis views. The patient exercised on a Chang protocol for 6 minutes and 30 seconds completing Stage II and 30 seconds of Stage III achieving a peak heart rate of 136 bpm (93 % predicted maximal heart rate) with a peak blood pressure 210/88 mmHg and a peak MET capacity of 7 METs. The patient was injected with 35 mCi of technetium 99m Cardiolite and subsequently stress SPECT Cardiolite nuclear imaging was obtained in the horizontal long, vertical long, and short axis views. A gated Cardiolite study at peak stress was obtained. Interpretation: Rest and stress SPECT Cardiolite nuclear imaging status post realignment, normalization, and attenuation correction, demonstrates a small area of subtle diminished tracer uptake near the apical segments without significant change between rest and stress. There is end systolic thickening and brightening. The gated Cardiolite study demonstrates myocardial thickening and inward wall motion. The reported LVEF is 65 %. Impression: 1. Rest and stress SPECT Cardiolite nuclear imaging demonstrate a small area of subtle diminished tracer uptake near the apical segments without significant change between rest and stress appearing compatible with physiologic apical thinning with no myocardial perfusion changes consider diagnostic for associated stress-induced myocardial ischemia or previous myocardial injury/infarction. 2. The gated Cardiolite study reports an LVEF of 65 %. Cardiac catheterization: 03/01/2016 Final impression: 1. Elevated left ventricular end-diastolic pressure compatible with decreased diastolic compliance 2. Left ventricle: A. Normal left ventricular size, wall motion, and systolic function B. Estimated LVEF is 60% 3. Left main coronary artery: A. Angiographically normal 4. Left anterior descending coronary artery: A. Proximal: 10-25% eccentric appearing stenosis B. Between diagonal branch #1 and diagonal branch #2: 85% irregular long appearing stenosis C. Status post diagonal branch #2: Occluded with the remainder of the vessel filling from ojcf-kg-oedmm collateral flow 5. Left circumflex coronary artery: A. Large codominant vessel B. Minimal luminal irregularities C. Left PDA: Proximal 75% hazy eccentric appearing stenosis 6. Right coronary artery: A. Large codominant vessel B. Minimal luminal irregularities C. Left collateral flow to the mid to distal LAD segment 7. Mitral valve: A. Mild mitral valve regurgitation Cardiac PCI: 03/01/2016 CONCLUSIONS: 1. Successful angioplasty and drug-eluting stenting to the mid LAD receiving a 2.25 x 12 Promus Synergy stent. 2. Successful heparin and Plavix assisted angioplasty and stenting of the distal left circumflex receiving a 2.5 x 12 Promus Synergy stent, postdilated with a 2.5 x 8 noncompliant balloon. 3. Manual sheath removal once ACT less than 150. 4. The patient will receive 600 mg of Plavix post-procedure to complete his Plavix loading. 5. The patient will be transferred to the ICU. If there are no contraindications, will be discharged home tomorrow. 6. The patient will follow up with Dr. Cristina going forward. The patient tolerated the procedure well with no complications. Assessment AND Plan 1. Atherosclerosis of chene[place] coronary artery of [place] heart without angina pectoris I25.10 Plan At the present time he appears to be doing well. He will continue his current medical management and outpatient follow-up. It was not felt he required further cardiac diagnostic studies or therapeutic intervention at this time 2. Presence of stent in coronary artery Z95.5 PTCA/MADAY to mid LAD and Distal Lt CX 03/01/16 Plan He has had previous PCI as noted above. Again he will continue risk factor modification and medical. 3. Pure hypercholesterolemia E78.00 Plan His lipid labs have been assessed in October of this year. His total cholesterol was 95 with an LDL of 29. His HDLs remain low at 28. His triglycerides were within normal range at 192. He will continue his medical management. If he has any concerns of muscle skeletal discomfort based upon his use of statins he could try CoQ10 to see if would make a difference. However in the meantime based upon his concerns it does appear that he may have underlying muscle skeletal related issues warranting further evaluation by orthopedic surgeon. 4. Essential hypertension I10 Plan He will continue medical therapy and follow-up Plan Detail Additional Comments Thank you for allowing me to participate in the care of your patient. Please don't hesitate to call if any issues arise. This note was generated using a voice recognition system and there may be incorrect words, spelling or punctuation that were not noted when reviewing the office note prior to saving. Follow Up 6 Months (PFM) Coding Level of Care Code Off vis,est,level 3 Diagnoses Atherosclerosis of chenega coronary artery of chenega heart without angina pectoris I25.10 Eyak vs. transplanted heart: chenega heart Presence of stent in coronary artery Z95.5 Pure hypercholesterolemia E78.00 Hyperlipidemia type: pure hypercholesterolemia Essential hypertension I10 Coding Level of Care Code Off vis,est,level 3 Diagnoses Atherosclerosis of chenega coronary artery of chenega heart without angina pectoris I25.10 Eyak vs. transplanted heart: chenega heart Presence of stent in coronary artery Z95.5 Pure hypercholesterolemia E78.00 Hyperlipidemia type: pure hypercholesterolemia Essential hypertension I10 02/13/18 1125 <Electronically signed by James Cristina MD> Date James Cristina MD Cosigner Signature: Date (if applicable) CC: Kodi Suero MD SPINE LUMBAR Observed: 02/03/2018 Status: F Source: [place] (ROUTINE) 7:15 AM [facility] REPOSITORY [facility] Imaging [facility] [place] [address] Spine Lumbar (Routine) MR#: [id number] Acct: [id number] Name: SACHA BOLES Rep #: [id number] : 1940 M 77 From: Óscar Cronin MD PCP: Kodi Suero MD Status: REG CLI Study: Spine Lumbar (Routine) Date of Exam: 02/03/18 Exam# [id number] Ordering Dr: Kodi Suero MD STUDY: MRI LUMBAR SPINE WITHOUT CONTRAST REASON FOR EXAM: Male, 77 years old. Left lower extremity weakness and numbness TECHNIQUE: Standardized fat and water weighted pulse sequences were obtained in the sagittal and axial planes. COMPARISON: None FINDINGS: No evidence for acute fracture or subluxation. Interosseous hemangioma within the L2 vertebral body T12-L1: Normal endplates. Normal disc height, desiccation and normal morphology. Normal bilateral facet joints. Normal central canal and bilateral lateral recesses. Normal bilateral intervertebral neural foramina. Normal lumbar lordosis. There is no substantial scoliosis. Normal conus medullaris that terminates at T12-L1 L1-2: Normal endplates. Normal disc height, desiccation and minor annular bulge.. Normal bilateral facet joints. Normal central canal and bilateral lateral recesses. Normal bilateral intervertebral neural foramina. L2-3: Normal endplates. Normal disc height, desiccation and minor annular bulge with small bilateral foraminal disc protrusions... Normal bilateral facet joints. Normal central canal and bilateral lateral recesses. Moderate bilateral foraminal stenosis L3-4: Normal endplates. Normal disc height, desiccation and mild annular bulge with small right foraminal disc protrusion.. Minor facet arthropathy and thickening of ligamenta flava.. Normal central canal and mild bilateral recess encroachment. Mild left neuroforaminal stenosis and moderate narrowing on the right L4-5: Normal endplates. Normal disc height, desiccation and minimal annular bulge.. Mild facet arthropathy. Normal central canal. Moderate bilateral recess and neuroforaminal stenosis L5-S1: Grade 1 spondylolisthesis Degenerative endplate changes.. Narrowed disc space with desiccation of the disc and mild bulging disc osteophyte complex. Bilateral facet arthropathy normal central canal. Moderate bilateral recess and severe neuroforaminal stenosis greater on the left exaggerated by shortened pedicles Normal visualized sacral ala. Normal visualized paraspinous soft tissue structures. MRI/Spine Lumbar (Routine) IMPRESSION: No evidence for acute fracture or subluxation. 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 Findings as above Electronically Signed: Óscar Cronin MD at 23:12 EST , Service support , CC: Kodi Suero MD Garment Liner: Signed COMPREHENSIVE METABOLIC Collected: 01/26/2018 Status: F Source: [place] [address] 11:42 AM [facility] REPOSITORY TYPE CODE TESTS RESULT OUT OF RANGE REFERENCE UNITS LAB L501.0100 74-106 mg/dL Normal GLU 106 Result Comment: Fasting Glucose result from 100 to 125 mg/dL suggests IMPAIRED HOMEOSTASIS per A.D.A. criteria. Please note revised GLUCOSE reference range effective 2017. LAB L501.1000 7-18 mg/dL High BUN 22 LAB L501.1100 0.70-1.30 mg/dL Normal CREAT,SERUM 1.09 Result Comment: The validity of the calculated GFR AND GFRAA in patients over 70 years has not been determined. Clinical correlation is essential. LAB L501.1110 >60 mL/min Normal EST GFR 70 Result Comment: Non- GFR Calc LAB L501.1115 >60 mL/min Normal EST GFR - AA 85 Result Comment: GFR Calc LAB L501.1300 10-20 RATIO High BUN/CRE 20.2 LAB L501.1500 6.4-8.2 g/dL T Normal PROT 7.4 LAB L501.1800 3.2-5.0 g/dL Normal ALB 3.8 LAB L501.1950 2.2-4.2 g/dL Normal GLOB 3.6 LAB L501.2000 0.9-2.4 RATIO Normal A/G 1.1 LAB L501.2200 8.5-10.1 mg/dL CA Normal 9.4 LAB L501.4100 15-37 U/L Normal AST 25 LAB L501.4305 45-117 U/L Normal ALK P 78 LAB L501.4405 16-61 U/L Normal ALT 36 LAB L501.4600 0.20-1.00 mg/dL T Normal BILI 0.60 LAB L501.5300 136-145 mmol/L NA Normal 141 LAB L501.5600 3.5-5.1 mmol/L K Normal 4.3 LAB L501.5900 98-107 mmol/L CL Normal 104 LAB L501.6100 21.0-32.0 mmol/L Normal CO2 28.0 LAB L501.6200 5-15 Normal GAP 9 Performed By: #### L500.4050, L501.5200, L501.9985, L506.1000 #### [facility] [address] [place], [address] MAGNESIUM Collected: 01/26/2018 Status: F Source: [place] 11:42 AM [facility] REPOSITORY TYPE CODE TESTS RESULT OUT OF RANGE REFERENCE UNITS LAB L501.5200 1.6-2.6 mg/dL Normal MG 1.8 Performed By: #### L500.4050, L501.5200, L501.9985, L506.1000 #### [facility] [address] [place], [address] HEMOGLOBIN A1C Collected: 01/26/2018 Status: F Source: [place] 11:42 [facility] REPOSITORY TYPE CODE TESTS RESULT OUT OF RANGE REFERENCE UNITS LAB L501.9985 4.2-6.3 % Normal HGB A1C 6.2 Performed By: #### L500.4050, L501.5200, L501.9985, L506.1000 #### [facility] [address] [place], [address] VITAMIN D,25 HYDROXY Collected: 01/26/2018 Status: F Source: [place] 11:42 AM [facility] REPOSITORY TYPE CODE TESTS RESULT OUT OF REFERENCE UNITS RANGE LAB L506.1000 29.95-100.01 ng/mL Low Vitamin D 26.0 25-OH Result Comment: Vitamin D 25(OH) Status Range Deficiency <20 ng/mL (50nmol/L) Insuffciency 20 - 30 ng/mL (50 - 75 nmol/L) Sufficiency 30 - 100 ng/mL (75 - 250 nmol/L) Toxicity >100 ng/mL (>250 nmol/L) Performed By: #### L500.4050, L501.5200, L501.9985, L506.1000 #### [facility] [address] [place], [address] HIPS B/L MIN 2 Observed: 11/22/2017 Status: F Source: [place] VIEWS W/ PELVIS 11:35 AM [facility] REPOSITORY [facility] Imaging Services [address] [place] [address] Hips B/L min 2 views w/ Pelvis MR#: [id number] Acct: [id number] Name: SACHA BOLES Rep #: [id number] : 1940 M 77 From: Gary Almonte MD PCP: Kodi Suero MD Status: REG CLI Study: Hips B/L min 2 views w/ Pelvis Date of Exam: 11/22/17 Exam# [id number] Ordering Dr: Kodi Suero MD STUDY: X-RAY - PELVIS REASON FOR EXAM: Male, 77 years old. Sciatica. TECHNIQUE: One view of the pelvis was obtained. COMPARISON: None. FINDINGS: There is a non-specific bowel gas pattern. There are atherosclerotic vascular calcifications of the pelvic arteries. Normal bilateral iliac wings, sacroiliac joints and visualized sacrum. Normal visualized bilateral superior and inferior pubic rami. Normal pubic symphysis. Normal ischial tuberosities. Normal visualized right femoral head. Normal right acetabulum. Normal right hip joint. Normal visualized left femoral head. Normal left acetabulum. Normal left hip joint. RAD/Hips B/L min 2 views w/ Pelvis IMPRESSION: Normal x-ray examination of the pelvis. Electronically Signed: Gary Almonte MD at 18:21 EDT , Service support , CC: Kodi Suero MD Garment Liner: Signed ESOPHAGUS ONLY Observed: 11/17/2017 Status: F Source: [place] 9:24 AM [facility] REPOSITORY [facility] Imaging Services [address] [place] [address] Esophagus Only MR#: [id number] Acct: [id number] Name: SACHA BOLES Rep #: [id number] : 1940 M 77 From: Donny Marion MD PCP: Kodi Suero MD Status: REG CLI Study: Esophagus Only Date of Exam: 11/17/17 Exam# [id number] Ordering Dr: Ned Wallace MD STUDY: X-RAY - ESOPHAGUS (BARIUM SWALLOW) WITH FLUOROSCOPY REASON FOR EXAM: Male, 77 years old. Epigastric fullness. TECHNIQUE: 20 view(s) of the esophagus were obtained following swallowing of barium. FLUOROSCOPY TIME (if supplied): (0:26) minutes/seconds COMPARISON: None. FINDINGS: There is no demonstrated esophageal foreign body. There is no demonstrated stricture or mucosal abnormality. Normal gastroesophageal junction, without a demonstrated hiatal hernia. The patient ingested a 12 mm tablet of barium without any difficulty. There is atherosclerotic tortuosity of the aortic arch and descending thoracic aorta. Normal visualized pulmonary parenchyma. There are diffuse degenerative changes of the visualized thoracic spine. RAD/Esophagus Only IMPRESSION: Normal plain film x-ray examination (barium swallow) of the esophagus. Electronically Signed: Donny Marion MD at 10:58 EDT Tel [phone], Service support , CC: Kodi Suero MD; Ned Wallace Garment Liner: Signed OFFICE VISIT REPORT Observed: 10/24/2017 Status: F Source: [place] 4:59 PM [facility] REPOSITORY [facility] Services [address] [place] [address] OFFICE VISIT Date of Service: 10/24/17 MR#: [id number] Acct: [id number] Patient: SACHA BOLES Rep #: [id number] : 1940 Provider: James Cristina MD Age/Sex: 77/M [place] [facility] Status: Signed Intake Vital Signs10/24/17 Weight: 255 lb 10/24/17 Blood Pressure 138/90 Intake Visit Reasons: EKG PER [facility] Review Nurse Required: No Accompanied by: None Is patient in pain?: No Allergies No Known Allergies Allergy (Verified 10/19/17 15:06) Medications Acetaminophen [Tylenol Tablet] 325 - 650 mg PO Q6H PRN PRN #0 tab 03/02/16 [Rx Confirmed 10/19/17] Aspirin [Aspirin, Baby] 81 mg PO DAILY@0800 10/13/17 [History Confirmed 10/19/17] Atorvastatin Calcium [Lipitor] 80 mg PO DAILY@2200 10/13/17 [History Confirmed 10/19/17] Clopidogrel Bisulfate [Plavix] 75 mg PO DAILY 10/13/17 [History Confirmed 10/19/17] Isosorbide Mononitrate [Imdur] 30 mg PO DAILY 10/13/17 [History Confirmed 10/19/17] Lisinopril [Zestril] 20 mg PO BID 10/13/17 [History Confirmed 10/19/17] Nitroglycerin 0.4 mg SL PRN PRN #30 tab.subl 10/14/17 [Rx Confirmed 10/19/17] Nurse's Note: Patient came for EKG only visit. EkG completed. Patient requested to be weighed and have BP taken. See vitals. Requested to talk to Lorena SANTOS. Assessment AND Plan Orders Orders: 10/24/17 8868 <Electronically signed by James Cristina MD> Date James Cristina MD Cosigner Signature: Date (if applicable) CC: 12 LEAD EKG PERFORMED Observed: 10/24/2017 Status: F Source[place] [facility] 9:26 AM [facility] REPOSITORY [facility] [address] [place] [address] 12 Lead EKG performed by [facility] 10/24/17924 MR#: [id number] Acct: [id number] Name: SACHA BOLES Rep #: [id number] : 1940 77 From: James Cristina MD Attending Dr: James Cristina MD Status: DEP AMB Ordering Dr: James Cristina MD Date: 10/24/17 Location: [facility] Sex: M C Admitted: BMS/12 Lead EKG performed by [facility] ECG Report Interpretation Sinus Bradycardia ABNORMAL Electronically signed on 10/24/2017 at 17:11 by James Cristina Software Version 8610 10/24/17 1716 Date James Cristina MD CC: Kodi Suero MD Date Dictated: 10/24/17924 Date Transcribed: 10/24/17924 Garment Liner: PM Signed CARDIOLOGY VISIT Observed: 10/20/2017 Status: F Source: [place] 4:36 PM [facility] [address] [place] [address] OFFICE VISIT Date of Service: 10/19/17 MR#: [id number] Acct: [id number] Name: SACHA BOLES Rep #: [id number] : 1940 Provider: Lorena Monge Age/Sex: 77/M Location: [facility] Status: Signed HPI HPI Details: SACHA BOLES, is a 77 M who presents to the office today for a hospital. He has a history of coronary artery disease with non-ST myocardial infarction and stenting of his LAD and circumflex in February 2016. Echocardiogram at that time demonstrated an ejection fraction of 65%. He also has a history of hypertension hyperlipidemia. Pt sts what lead up to his hospital stay was he was laying down working in the garage. He felt lightheaded, had a chest fullness, sweating. He did use NTG and it was not relieved by this. Trop were negative. Stress was negative. BB was discontinues. Pt sts that since he has been home he has a dull pain that is under his left rib cage and radiates upwards. This occurs daily. He sts that this is not new and has been ongoing for a while. He does uses Tums and his symptoms are relieved by this. He does not have any worsening SOB. He does occasionally wake up SOB. He does not have any palpitations. He does not have any near syncope/syncope. He does not have any claudication. He does have issues with nerve pain. He does not have any edema. He has lost 20 lbs since he was here last. Intake Vital Signs10/19/17 Height 6 ft 1 in 10/19/17 Weight: 256 lb 10/19/17 Body Mass Index (BMI) 33.7 10/19/17 Blood Pressure 124/68 10/19/17 Blood Pressure Location Lt brachial Intake Visit Reasons: Appt. in Feb. but having concerns Review Nurse Required: No Accompanied by: None Is patient in pain?: No Allergies No Known Allergies Allergy (Verified 10/19/17 15:06) Medications Acetaminophen [Tylenol Tablet] 325 - 650 mg PO Q6H PRN PRN #0 tab 03/02/16 [Rx Confirmed 10/19/17] Aspirin [Aspirin, Baby] 81 mg PO DAILY@0800 10/13/17 [History Confirmed 10/19/17] Atorvastatin Calcium [Lipitor] 80 mg PO DAILY@2200 10/13/17 [History Confirmed 10/19/17] Clopidogrel Bisulfate [Plavix] 75 mg PO DAILY 10/13/17 [History Confirmed 10/19/17] Isosorbide Mononitrate [Imdur] 30 mg PO DAILY 10/13/17 [History Confirmed 10/19/17] Lisinopril [Zestril] 20 mg PO BID 08/02/18 [History Confirmed 10/19/17] Nitroglycerin 0.4 mg SL PRN PRN #30 tab.subl 10/14/17 [Rx Confirmed 10/19/17] Ejection fraction %: 60 to 64 PFSH Medical History Vertigo (Acute) Bradycardia (Acute) Palpitations (Inactive) Chest discomfort (Acute) Unstable angina (Inactive) Nicotine addiction (Chronic) Sleep-disordered breathing (Chronic) Left atrial enlargement (Chronic) LVH (left ventricular hypertrophy) (Chronic) Diabetes mellitus type 2 in obese (Chronic) CAD (coronary artery disease) (Chronic) Hyperlipidemia (Chronic) Unstable angina pectoris (Inactive) NSTEMI (non-ST elevated myocardial infarction) (Resolved) HTN (hypertension) (Chronic) PAC (premature atrial contraction) (Chronic) PVC (premature ventricular contraction) (Chronic) Surgical History Post PTCA (Chronic 2016) History of tonsillectomy (Resolved) Family History Mother Diabetes Cancer Father CVA (cerebral vascular accident) Social History Smoking Status: Former smoker alcohol intake: current alcohol intake frequency: a few times a month caffeine: No ROS Const Const: Negative for weakness, fatigue, fever(s) or headache(s) Eyes Eyes: Negative for blind spots, loss of peripheral vision or transient loss of vision ENT ENT: Negative for headache(s), dizziness, tinnitus or Nosebleed/epistaxis Cardio Chest Pain: No Palpitations: No Edema: None Muscle aches with walking: None Resp Respiratory: Negative for SOB with activity, SOB at rest, SOB orthopnea\SOB lying down or Cough GI GI: Positive for heartburn; negative nausea, vomiting or vomiting blood/hematemesis : Negative for hematuria Musc Musc: Positive for muscle aches/ myalgia Neuro Neuro: Negative for weakness, headache(s), dizziness, near syncope, syncope, lightheadedness or orthostatic symptoms Jayce Hematologic/Lymphatic: Negative for easy bleeding Endo Endo: Negative for fatigue Cardiology Exam Const Appearance: cooperative, no acute distress and well developed Orientation: alert, awake and oriented x3 Head Head: normocephalic and atraumatic Mouth: moist mucous membranes Eyes General: appearance normal, both eyes and all related structures Conjunctivae: conjunctivae normal Pupils: PERRL EOM: EOM intact bilaterally Neck Neck: normal visual inspection, no lymphadenopathy and no JVD Carotids: Negative bruit Neck Mass: Negative Neck mass Chest Chest inspection: normal inspection of the chest and symmetric chest movement Auscultation: Bilateral: Clear to Auscultation Cardio Palpation: normal PMI Rate: regular rate Rhythm: regular rhythm Heart sounds: S1 normal and S2 normal; negative rub, gallop or murmur GI GI: normal to inspection, soft, no hepatosplenomegaly and bowel sounds present; negative tender Neuro General: alert, awake, oriented x3, CN's II-XI intact bilaterally and moves all extremities Extremities Pulses: Normal: Right Posterior Tibial Pulse, Left Posterior Tibial Pulse, Right Radial Pulse, Left Radial Pulse Lower Extremity Edema: None: Bilateral Psych Psychological: normal affect Supplemental Info Stress test 2018 demonstrated 1. Rest and stress SPECT Cardiolite nuclear imaging demonstrate a small area of subtle diminished tracer uptake near the apical segments without significant change between rest and stress appearing compatible with physiologic apical thinning with no myocardial perfusion changes consider diagnostic for associated stress-induced myocardial ischemia or previous myocardial injury/infarction. 2. The gated Cardiolite study reports an LVEF of 65 %. Assessment AND Plan 1. Coronary artery disease, angina presence unspecified, unspecified vessel or lesion type, unspecified whether chenega or transplanted heart I25.10 Plan Stable, from a cardiac standpoint patient does not have any symptoms of angina. We recommend that they continue with current aggressive medical management and risk factor modification. Patient's beta-yesy was discontinued during his hospital stay. Overall his heart rate and blood pressure doing well. He has not had any further symptoms. Patient Instructions It is okay for you to have a colonoscopy. You may hold your plavix 5-7 days prior to procedure. 2. Essential hypertension I10 Plan Blood pressure is well controlled on current medications, we do not recommend any changes at this time. Taking 3. Pure hypercholesterolemia E78.00 Plan Recent lipid profile demonstrates total cholesterol 95, HDL 28, LDL 29. Will not make any adjustments. A white Plan Detail Additional Comments Thank you for allowing us to participate in the patients plan of care, if you have any questions please do not hesitate to call. This note was generated using a voice recognition system and there may be incorrect words, spelling or punctuation that were not noted when reviewing the office note prior to saving. Follow Up 10/19/17 (keep as is) Coding Level of Care Code Off vis,est,level 3 Diagnoses Coronary artery disease, angina presence unspecified, unspecified vessel or lesion type, unspecified whether chenega or transplanted heart I25.10 Associated angina: angina presence unspecified Coronary Disease-Associated Artery/Lesion type: unspecified vessel or lesion type Eyak vs. transplanted heart: unspecified whether chenega or transplanted heart Essential hypertension I10 Hypertension type: essential hypertension Pure hypercholesterolemia E78.00 Hyperlipidemia type: pure hypercholesterolemia Coding Level of Care Code Off vis,est,level 3 Diagnoses Coronary artery disease, angina presence unspecified, unspecified vessel or lesion type, unspecified whether chenega or transplanted heart I25.10 Associated angina: angina presence unspecified Coronary Disease-Associated Artery/Lesion type: unspecified vessel or lesion type Eyak vs. transplanted heart: unspecified whether chenega or transplanted heart Essential hypertension I10 Hypertension type: essential hypertension Pure hypercholesterolemia E78.00 Hyperlipidemia type: pure hypercholesterolemia 10/20/17 1636 <Electronically signed by Lorena SANTOS> Date Lorena SANTOS Cosigner Signature: Date (if applicable) CC: Kodi Suero MD 12 LEAD ELECTROCARDIOGRAM Observed: 10/17/2017 Status: F Source: [place] 3:46 PM [facility] REPOSITORY [facility] Cardiovascular Services [address] [place] [address] 12 Lead EKG 10/13/171937 MR#: [id number] Acct: [id number] Name: SACHA BOLES Rep #: [id number] : 1940 77 From: James Cristina MD Attending Dr: Gunjan Bennett MD Status: DIS ASHLEY Ordering Dr: Nitza Angela Date: 10/13/17 Location: [facility] Sex: M C Admitted: 10/13/17 Test Reason : CP NEW ADMISSION Blood Pressure : / mmHG Vent. Rate : 049 BPM Atrial Rate : 049 BPM P-R Int : 198 ms QRS Dur : 096 ms QT Int : 436 ms P-R-T Axes : 058 039 060 degrees QTc Int : 393 ms Sinus bradycardia Otherwise normal ECG Confirmed by JAMES CRISTINA MD ([id number]), ALEENA Oden ([id number]) on 10/17/2017 3:45:51 PM Referred By: JERMAINE Confirmed By:JAMES CRISTINA MD 10/17/17 1542 Date James Cristina MD CC: Nitza Suero MD; Gunjan Bennett MD Signed 12 LEAD ELECTROCARDIOGRAM Observed: 10/17/2017 Status: F Source: [place] 3:42 PM [facility] REPOSITORY [facility] Cardiovascular Services [address] [place] [address] 12 Lead EKG 10/14/17 0533 MR#: [id number] Acct: [id number] Name: SACHA BOLES Rep #: [id number] : 1940 77 From: James Cristina MD Attending Dr: Gunjan Bennett MD Status: DIS ASHLEY Ordering Dr: Nitza Angela Date: 10/14/17 Location: [facility] Sex: M C Admitted: 10/13/17 Test Reason : MORNING EKG Blood Pressure : / mmHG Vent. Rate : 050 BPM Atrial Rate : 050 BPM P-R Int : 220 ms QRS Dur : 096 ms QT Int : 460 ms P-R-T Axes : 072 042 060 degrees QTc Int : 419 ms Sinus bradycardia with 1st degree A-V block Otherwise normal ECG Confirmed by JAMES CRISTINA MD ([id number]), ALEENA Oden ([id number]) on 10/17/2017 3:42:23 PM Referred By: JERMAINE Confirmed By:JAMES CRISTINA MD 10/17/17 1544 Date James Cristina MD CC: Nitza Suero MD; Gunjan Bennett MD Signed 12 LEAD ELECTROCARDIOGRAM Observed: 10/17/2017 Status: F Source: [place] 2:27 PM [facility] Cardiovascular Services [address] [place] [address] 12 Lead EKG 10/13/17 1613 MR#: [id number] Acct: [id number] Name: SACHA BOLES Rep #: [id number] : 1940 77 From: James Cristina MD Attending Dr: Gunjan Bennett MD Status: DIS ASHLEY Ordering Dr: Lucinda Hall MD Date: 10/13/17 Location: [facility] Sex: M C Admitted: 10/13/17 Test Reason : CP Blood Pressure : / mmHG Vent. Rate : 051 BPM Atrial Rate : 051 BPM P-R Int : 180 ms QRS Dur : 096 ms QT Int : 436 ms P-R-T Axes : 056 033 057 degrees QTc Int : 401 ms Sinus bradycardia Otherwise normal ECG Confirmed by IBETH LOZANO, JAMES ([id number]), online editor ALEENA SUERO ([id number]) on 10/17/2017 2:26:38 PM Referred By: TREV Confirmed By:JAMES CRISTINA MD 10/17/17 1426 Date James Cristina MD CC: Lucinda Hall MD; Kodi Suero MD; Gunjan Bennett MD Signed DISCHARGE SUMMARY Observed: 10/14/2017 Status: F Source: [place] 4:35 PM [facility] Medical Records Department [address] [place] [address] Discharge Summary 10/14/17 1326 MR#: [id number] Acct: [id number] Name: SACHA BOLES Rep #: [id number] : 1940 77 From: Gunjan Bennett MD PCP: Kodi Suero MD Status: DIS ASHLEY Y Location: [place] [id number] Discharge Date and Diagnosis - Problem List Patient Problems: Active and Suspected Problems (Last Updated 04/21/17 @ 10:36 by DANIELLE Molina) Vertigo (Acute) Bradycardia (Acute) Date of Admission: 10/13/17 Date of Discharge: 10/14/17 - Primary Discharge Diagnosis Active and Suspected Problems (Last Updated 04/21/17 @ 10:36 by DANIELLE Molina) Vertigo (Acute) Bradycardia (Acute) chest pain - Secondary Discharge Diagnosis Chronic Problems (Last Updated 04/21/17 @ 10:36 by DANIELLE Molina) Nicotine addiction (Chronic) Sleep-disordered breathing (Chronic) Left atrial enlargement (Chronic) LVH (left ventricular hypertrophy) (Chronic) Diabetes mellitus type 2 in obese (Chronic) Post PTCA (Chronic 2015) LAD and circumflex CAD (coronary artery disease) (Chronic) Hyperlipidemia (Chronic) HTN (hypertension) (Chronic) PAC (premature atrial contraction) (Chronic) PVC (premature ventricular contraction) (Chronic) Hospital Course and Treatment Imaging Results: 10/14/17 05:55 Nuclear Stress Test - Treadmil [NM] Routine Diagnostic Data Chest X-Ray 10/13/17 16:23 IMPRESSION: There are no acute findings. Electronically Signed: Yandel Flynn MD at 18:03 EDT , Service support , Brain CT 10/13/17 16:40 IMPRESSION: Normal unenhanced CT scan of the brain. Electronically Signed: Yandel Flynn MD at 18:04 EDT , Service support , Laboratory Tests WBC 9.0 RBC 4.94 Hgb 14.8 Hct 44.5 MCV 90.1 MCH 30.0 MCHC 33.3 RDW 13.1 RDW Differential 42.6 WBC 8.0 RBC 4.66 Hgb 14.2 Hct 42.0 MCV 90.1 MCH 30.5 Operations: None Procedures: Stress test Summary of Care Provided: The patient is a 77 year old M with past medical history of coronary artery disease status post stents in 2015, hyperlipidemia, diabetes, anxiety and depression. Was admitted via the ED on H2 18 with a complaint of new onset left-sided chest pain which is described as pressure-like and radiated into the left upper extremity with assistive diaphoresis, shortness of breath and lightheadedness as well as nausea. He took sublingual nitro with some improvement but pain still persisted. He also had associated vertigo and said he had been having occasional vertigo for a while. He had a history of increased fatigue and also had bradycardia. 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 Workup in the ED was basically unremarkable apart from bradycardia with heart rate of 48. EKG showed sinus bradycardia and CT of the head was negative. Chest x-ray showed no acute findings. He was admitted to be managed for chest pain to rule out ACS. Stress test done was negative. Patient remained stable and per discussion with Dr. Cristina, metoprolol was stopped on account of bradycardia. Patient remained stable even though he still complaining of some pressure-like pain over the left precordium and stated that he had resolved in the past with Tums. Patient seen and examined prior to discharge. He admitted to being under a lot of stress in his life which he thinks may have been contributing to this chest pain. He has a son who is lives with him and has substance abuse and patient has found this very difficult to live with. His sister has also been going to have very difficult time and this has impacted his family. This he thinks is a significant contributor which I concurred with and counseled patient to find time to rest and take care of himself. No shortness of breath, abdominal pain, diarrhea vomiting. Review of systems otherwise negative. o/e: Vital Signs Height 6 ft 1 in []General: awake, alert, oriented x 3 and cooperative, Skin: normal color, turgor, no icterus, cyanosis. HEENT: AT/NC, EOMI, PERRLA, MMM, no carotid bruits or JVD noted. Lungs: CTA bilaterally, Heart: regular rate and rhythm; no gallop, rub audible. Abdomen: soft, obese, not tender to palpation, ND, normal BS, no hepatosplenomegaly Extremities: no cyanosis, clubbing, or edema. Neurological: patient awake, alert, oriented x 3; cognitive function intact; pupils equally reactive to light and accomodation; cranial nerves II-XII grossly normal, no nystagmus, moving all 4 extremities, no focal deficits Psychiatric: affect appears normal, Plan as stated above. He is to follow-up with his primary care doctor in 1 week, corrections sergeant next Tuesday and has also been given a referral to see ENT surgeon Dr Del Valle, o/a of vertigo. Discharge Diet: 2000 mg Sodium Diet Discharge Activity: Return to Normal Activity Weight Bearing Status: Weight bearing as tolerated Call your doctor if you observe: Shortness of breath, Dizziness, Chest pain Home Medications: Medications to take at Discharge Acetaminophen [Tylenol Tablet] 325 - 650 mg PO Q6H PRN PRN #0 tab 03/02/16 Nitroglycerin [Nitrostat] 0.4 mg SUBLINGUAL Q5M PRN #1 bottle 03/02/16 Aspirin [Aspirin, Baby] 81 mg PO DAILY@79910/13/17 Atorvastatin Calcium [Lipitor] 80 mg PO DAILY@219910/13/17 Clopidogrel Bisulfate [Plavix] 75 mg PO DAILY 10/13/17 Isosorbide Mononitrate [Imdur] 30 mg PO DAILY 10/13/17 Lisinopril [Zestril] 20 mg PO BID 10/13/17 Nitroglycerin 0.4 mg SL PRN PRN #30 tab.subl 10/14/17 Following Prescrptions Were Given to Patient: Nitroglycerin 0.4 mg SL PRN PRN #30 tab.subl PRN Reason: Cardiac/Chest Pain Primary Care Physician: Kodi Suero MD [Primary Care Provider] - Please follow up with your Primary Care Physician in: one week Please Follow Up With: James Cristina MD When: next Tuesday as planned. Please Follow Up With: Sacha Del Valle MD When: two weeks- for vertigo Disposition: Home Minutes spent on discharge:: 40 Patient Condition:: Stable Medical Necessity - Tobacco Use Smoking Status: Former smoker Tobacco Use: Non-smoker Meaningful Use Info Meaningful Use Diagnoses (Choose all that apply): None applicable Code Visit Inpatient E AND M: 65317 Disch Hosp 10/14/17 7205 <Electronically signed by Gunjan Bennett MD> Date Gunjan Bennett MD Cosigner Signature (if applicable): Date CC: Kodi Suero MD; Gunjan Bennett MD Signed DISCHARGE INSTRUCTION Observed: 10/14/2017 Status: F Source: [place] 1:25 PM [facility] REPOSITORY [facility] Medical Records Department [address] [place] [address] Instructions for Home/Discharge Instructions 10/14/17 1323 MR#: [id number] Acct: [id number] Name: SACHA BOLES Rep #: [id number] : 1940 77 From: Gunjan Bennett MD PCP: Kodi Suero MD Status: ADM ASHLEY - Discharge Diagnoses Current Active Problems: Current Active and Chronic Problems (Last Updated 04/21/17 @ 10:36 by DANIELLE Molina) Vertigo (Acute) Bradycardia (Acute) chest pain You will use the following diet at home:: No restrictions Your food should be the consistency of: Regular Your liquids should be the consistency of: Regular/Thin Discharge Activity: Return to Normal Activity Weight Bearing Status: Weight bearing as tolerated Call your doctor if you observe: Shortness of breath, Dizziness, Chest pain Allergies/Adverse Reactions: Allergies No Known Allergies Allergy (Verified 04/21/17 10:51) Medications to take at Discharge Acetaminophen [Tylenol Tablet] 325 - 650 mg PO Q6H PRN PRN #0 tab 03/02/16 Nitroglycerin [Nitrostat] 0.4 mg SUBLINGUAL Q5M PRN #1 bottle 03/02/16 Aspirin [Aspirin, Baby] 81 mg PO DAILY@0800 10/13/17 Atorvastatin Calcium [Lipitor] 80 mg PO DAILY@2200 10/13/17 Clopidogrel Bisulfate [Plavix] 75 mg PO DAILY 10/13/17 Isosorbide Mononitrate [Imdur] 30 mg PO DAILY 10/13/17 Lisinopril [Zestril] 20 mg PO BID 10/13/17 Nitroglycerin 0.4 mg SL PRN PRN #30 tab.subl 10/14/17 The following prescriptions were given: Nitroglycerin 0.4 mg SL PRN PRN #30 tab.subl PRN Reason: Cardiac/Chest Pain Primary Care Physician: Kodi Suero MD [Primary Care Provider] - Please follow up with your Primary Care Physician in: one week Test Results: Test results from this visit will be discussed in further detail at your follow-up appointment, if applicable. Please Follow Up With: James Cristina MD When: next Tuesday as planned. Please Follow Up With: Sacha Del Valle MD When: two weeks- for vertigo Proposed Discharge Date: 10/14/17 10/14/17 1325 <Electronically signed by Gunjan Bennett MD> Date Gunjan Bennett MD CC: Kodi Suero MD; James Cristina MD STRESS REPORT Observed: 10/14/2017 Status: F Source: [place] 11:46 AM [facility] Cardiovascular Services [address] [place] [id number] MR#: [id number] Acct: [id number] Name: SACHA BOLES Rep #: [id number] : 1940 77 From: James Cristina MD Primary Care: Kodi Suero MD Status: ADM ASHLEY Ordering Dr: Daniela Franco Stress Test Report Date: 10/14/2017 Procedure: Exercise tolerance test/imaging study Indications: Chest pain; CAD; PCI Consent: Per the patient Procedure: The patient exercised on a Chang protocol for 6 minutes and 30 seconds completing Stage II and 30 seconds of Stage III achieving a peak heart rate of 136 bpm (93 % predicted maximal heart rate) with a peak blood pressure 210/88 mmHg and a peak MET capacity of 7 METs. The baseline ECG demonstrated sinus bradycardia. The peak exercise ECG demonstrated [id number] nonspecific ST segment variability. There were no cardiac dysrhythmias pretest, during exercise, or recovery. The functional capacity was considered average. There was no complaint of chest discomfort during exercise or recovery. The examination was discontinued secondary to dyspnea. Impression: 1. Technically adequate (percent predicted maximal heart rate greater than 85%) exercise tolerance test 2. Peak exercise ECG demonstrated [id number] nonspecific ST segment variability 3. There were no cardiac dysrhythmias pretest, during exercise, or recovery. 4. Nuclear images pending Myocardial perfusion imaging study: Technique: The patient was injected with 12 mCi of technetium 99m Cardiolite and subsequently rest SPECT Cardiolite nuclear imaging was obtained in the horizontal long, vertical long, and short axis views. The patient exercised on a Chang protocol for 6 minutes and 30 seconds completing Stage II and 30 seconds of Stage III achieving a peak heart rate of 136 bpm (93 % predicted maximal heart rate) with a peak blood pressure 210/88 mmHg and a peak MET capacity of 7 METs. The patient was injected with 35 mCi of technetium 99m Cardiolite and subsequently stress SPECT Cardiolite nuclear imaging was obtained in the horizontal long, vertical long, and short axis views. A gated Cardiolite study at peak stress was obtained. Interpretation: Rest and stress SPECT Cardiolite nuclear imaging status post realignment, normalization, and attenuation correction, demonstrates a small area of subtle diminished tracer uptake near the apical segments without significant change between rest and stress. There is end systolic thickening and brightening. The gated Cardiolite study demonstrates myocardial thickening and inward wall motion. The reported LVEF is 65 %. Impression: 1. Rest and stress SPECT Cardiolite nuclear imaging demonstrate a small area of subtle diminished tracer uptake near the apical segments without significant change between rest and stress appearing compatible with physiologic apical thinning with no myocardial perfusion changes consider diagnostic for associated stress-induced myocardial ischemia or previous myocardial injury/infarction. 2. The gated Cardiolite study reports an LVEF of 65 %. This note was generated with OOTUation software. It may contain incorrect words, spelling, and punctuation that were not noted in checking the note before signing. 10/14/17 1146 <Electronically signed by James Cristina MD> Date James Cristina MD CC: Kodi Suero MD; Gunjan Bennett MD Date Dictated: 10/14/17 1141 Date Transcribed: 10/14/17 114 Garment Liner: PM Signed CONSULTATION Observed: 10/14/2017 Status: F Source: [place] 10:36 AM [facility] REPOSITORY [facility] Medical Records Department [address] [place] [address] Consultation 10/14/17 1021 MR#: [id number] Acct: [id number] Name: SACHA BOLES Rep #: [id number] : 1940 77 From: James Cristina MD PCP: Kodi Suero MD Status: ADM ASHLEY Y Location: [place] [address] Problem List (1) Chest discomfort Status: Acute (2) Bradycardia Status: Acute (3) CAD (coronary artery disease) Status: Chronic Qualifiers: Coronary Disease-Associated Artery/Lesion type: unspecified vessel or lesion type [place] vs. transplanted heart: unspecified whether chenega or transplanted heart Associated angina: angina presence unspecified Qualified Code(s): I25.10 - Atherosclerotic heart disease of chene[place] coronary artery without angina pectoris (4) Post PTCA Status: Chronic Comment: LAD and circumflex (5) Hyperlipidemia Status: Chronic Qualifiers: Hyperlipidemia type: pure hypercholesterolemia Qualified Code(s): E78.00 - Pure hypercholesterolemia, unspecified; E78.0 - Pure hypercholesterolemia (6) HTN (hypertension) Status: Chronic Qualifiers: Hypertension type: essential hypertension Qualified Code(s): I10 - Essential (primary) hypertension (7) Vertigo Status: Acute Reason for Consult Date of Consultation: 10/14/17 History of Present Illness: The patient is a 77 year old white male with a past cardiovascular history which has included underlying CAD, status post PCI, superimposed on hyperlipidemia and hypertension who presents for concerns of symptoms compatible with vertigo as well as an atypical chest discomfort. He states that he has been experiencing episodes where everything is spinning. He also has been experiencing a left-sided chest discomfort as if someone was pressing on his left chest. He states he has had more of his esophageal reflux symptoms and using more antacids. He also has felt like he is slowing down and becoming more tired and fatigued. He has not complained of any acute respiratory issues nor has he had any syncopal events. He denies any other additional cardiovascular evaluation or care. He states he is in need of an upcoming colonoscopy to monitor his colonic polyp history. He presented to the hospital for his aforementioned symptoms. He had cardiac enzymes performed which were negative. An ECG demonstrated sinus bradycardia with no acute ECG changes. His cardiac rhythm has remained sinus bradycardia. His chest x-ray demonstrated no acute changes. [] Past Medical History Allergies/Adverse Reactions: Allergies No Known Allergies Allergy (Verified 04/21/17 10:51) Home Medications: Ambulatory Orders Medication Instructions Recorded Acetaminophen [Tylenol Tablet] 325 - 650 mg PO Q6H PRN PRN #0 tab 03/02/16 Past Medical History (Chronic Problems): Chronic Problems (Last Updated 04/21/17 @ 10:36 by DANIELLE Molina) Nicotine addiction (Chronic) Sleep-disordered breathing (Chronic) Left atrial enlargement (Chronic) LVH (left ventricular hypertrophy) (Chronic) Diabetes mellitus type 2 in obese (Chronic) Post PTCA (Chronic 2016) LAD and circumflex CAD (coronary artery disease) (Chronic) Hyperlipidemia (Chronic) HTN (hypertension) (Chronic) PAC (premature atrial contraction) (Chronic) PVC (premature ventricular contraction) (Chronic) Surgical History: - - PCI 2, tonsillectomy. Psychiatric History: No pertinent psych hx - *Family History Maternal History Items: - - Patient denies any maternal or paternal family history including diabetes, heart disease, cancer. Paternal History Items: - - Patient denies any maternal or paternal family history including diabetes, heart disease, cancer. Lives: Spouse/ Significant Other Smoking Status: Former smoker Tobacco Use: Non-smoker Alcohol: None Drugs: None Review of Systems - Review of Systems General: Reports: Fatigue. Denies: Fever, Night Sweats Cardiovascular: Reports: Chest Discomfort, - - Vertigo. Denies: Shortness of Breath, Orthopnea, PND, Peripheral Edema, Palpitations, Lightheadedness, Dizziness, Near Syncope, Syncope Respiratory: Denies: Cough, Sputum Production, Hemoptysis Gastrointestinal: Reports: Indigestion, Heart Burn. Denies: Hematemesis, Hematochezia, Melena Genitourinary: Denies: Dysuria, Hematuria Skin: Denies: Rash Subjectve: This is a 77-year-old white male who appears to be resting comfortably at the moment in no acute distress. Objective: Vital Signs Temp Pulse Resp BP Pulse Ox 97.8 F 57 L 16 138/68 H 95 10/14/17 05:55 10/14/17 07:13 10/14/17 05:55 10/14/17 05:55 10/14/17 05:55 Oxygen Delivery Method Room Air Weight: 255 lb 11.779 oz Body Mass Index (BMI) 33.7 Intake and Output for Last 24 Hours Intake Total 429 / 429 603 / 603 Balance 429 / 429 603 / 603 General: Awake, Alert, Oriented x 3, Cooperative, No Acute Distress HEENT: Atraumatic, Normocephalic, PERRL, EOMI, Sclera Non Icteric Oral: Moist Mucosa Neck: Supple, Good ROM, No JVD Lungs: Clear to auscultation Cardiovascular: Regular Rhythm, Normal S1, Normal S2 Vascular: No Carotid Bruits Abdomen: Bowel Sounds Present, Soft, Non Tender Extremities: No Cyanosis, No Clubbing, No edema Neurological: No Focal Motor or Sensory Deficit Psych/Mental Status: Appropriate, Normal Affect 10/13/17 18:53: Troponin I < 0.015 10/13/17 22:40: Troponin I < 0.015 10/14/17 05:55: WBC 8.0, RBC 4.66, Hgb 14.2, Hct 42.0, MCV 90.1, MCH 30.5, MCHC 33.8, RDW 12.9, RDW Differential 42.1, Plt Count 182, MPV 10.1 10/14/17 05:55: Sodium 143, Potassium 4.3, Chloride 108 H, Carbon Dioxide 26.0, Anion Gap 9, BUN 22 H, Creatinine 1.11, Est GFR (MDRD) Af Amer 83, Est GFR (MDRD) Non-Af 69, BUN/Creatinine Ratio 19.8, Glucose 118 H, Calcium 8.7, Triglycerides 192, Cholesterol 95, LDL Cholesterol 29, VLDL Cholesterol 38, HDL Cholesterol 28 L 10/14/17 05:55: PT 13.9, INR 1.1, APTT 26.3 Rhythm: Sinus rhythm/sinus bradycardia EKG: As noted above ECHO: 02/28/2016: Left ventricle normal with an LVEF of 60%; mild concentric LVH; mild left atrial enlargement; trivial MR/TR; mild focal aortic valve thickening; trivial FL; estimated RV systolic pressure of 31 mmHg Stress Test:: Exercise tolerance test/stress nuclear imaging study: Myocardial perfusion changes compatible with physiologic apical thinning with no myocardial perfusion changes consider diagnostic for associated stress-induced myocardial ischemia or previous myocardial injury/infarction: Gated LVEF of 60% Cardiac Cath: 03/01/2016: Left ventricle normal with an LVEF of 60%; left main coronary artery normal; LAD with proximal 10-25% eccentric stenosis; subsequent LAD with 85% irregular long stenosis; status post second diagonal branch occluded with the remainder the vessel filling from left to right collateral flow; LCx being a large codominant vessel with a left PDA with proximal 75% hazy eccentric appearing stenosis; RCA being a large codominant vessel with minimal luminal irregularities with collateral flow to the mid to distal LAD; mild MR PCI: Well 2015: PTCA/MADAY to the mid LAD with a 2.25 12 Promus synergy stent; successful PTCA/MADAY to the distal LCx with a 2.5 12 Promus synergy stent CXR: Preliminary evaluation as noted above: Please see official report Assessment/Plan 1. Chest discomfort The patient has had chest discomfort. The etiology is unclear to whether this represents his underlying CAD process or a non-CAD process. He is undergoing noninvasive evaluation thus far. His cardiac enzymes have been negative. His ECG has demonstrated no new acute changes. He is pending evaluation with an exercise tolerance test/imaging study. Depending upon his findings he may or may not need further invasive evaluation or care. 2. Bradycardia The patient does have an underlying sinus bradycardia. He has been on very low-dose beta-yesy therapy with metoprolol XL 12.5 mg p.o. daily. Ideally it would be good, from his cardiovascular history, to continue his beta-yesy therapy. However, if there is concern that his bradycardia, is contributing to any of his symptoms, then his beta-yesy therapy may need to be discontinued. However, if it appears that he does continue to require beta- yesy based on his cardiovascular history, and he remains bradycardic, and there are concerns that his bradycardia is contributing to any of his symptoms, then he may need to be considered for the possibility of future permanent pacemaker backup. 3. CAD status post LAD and LCx PCI/MADAY He does need to continue risk factor evaluation and care. He continues noninvasive evaluation at this time. Again depending upon findings he may need repeat invasive evaluation. Otherwise he may need to be considered for further noncardiac evaluation of his symptoms. 4. Hyperlipidemia He will continue risk factor evaluation care as deemed appropriate. 5. Hypertension He will continue medical management with adjustment of his medications as needed. 6. Vertigo He describes symptoms of vertigo. He should be further evaluated by internal medicine and if need be by neurology and/or ENT. Comment: The patient's case has been discussed and reviewed with the patient as well as his multiple family members present. This note was generated with Melodigram dictation software. It may contain incorrect words, spelling, and punctuation that were not noted in checking the note before signing. 10/14/17 1036 <Electronically signed by James Cristina MD> Date James Cristina MD Cosigner Signature (if applicable): Date CC: Kodi Suero MD; James Cristina MD Signed CBC-COMPLETE BLOOD CNT Collected: 10/14/2017 Status: F Source: [place] NO DIFF 5:55 AM [facility] REPOSITORY TYPE CODE TESTS RESULT OUT OF RANGE REFERENCE UNITS LAB L100.1000 4.4-11.0 K/mm3 Normal WBC 8.0 LAB L100.1200 4.6-6.2 M/mm3 Normal RBC 4.66 LAB L100.1300 13.0-16.5 g/dl Normal HGB 14.2 LAB L100.1400 40-54 % Normal HCT 42.0 LAB L100.1500 80-94 fL Normal MCV 90.1 LAB L100.1600 27.0-32.0 pg Normal MCH 30.5 LAB L100.1700 32-36 g/gl Normal MCHC 33.8 LAB L100.1810 11.6-14.6 % Normal RDW CV 12.9 LAB L100.1820 35.1-43.9 fl Normal RDW SD 42.1 LAB L100.1900 150-450 K/mm3 Normal PLT 182 LAB L100.2000 6.2-12.0 fl Normal MPV 10.1 Performed By: #### L100.0500 #### [facility] [address] [place], [address] PROTHROMBIN TIME W/INR Collected: 10/14/2017 Status: F Source: [place] 5:55 AM [facility] REPOSITORY TYPE CODE TESTS RESULT OUT OF RANGE REFERENCE UNITS LAB L300.4150 11.7-14.9 SECONDS Normal PROTIME 13.9 LAB L300.4200 Normal INR 1.1 Performed By: #### L300.3900, L300.4310 #### [facility] [address] [place], [place], [address] PARTIAL THROMBOPLAST Collected: 10/14/2017 Status: F Source: [place] TIME 5:55 AM [facility] REPOSITORY TYPE CODE TESTS RESULT OUT OF RANGE REFERENCE UNITS LAB L300.4310 24.1-36.2 Seconds Normal PTT 26.3 Performed By: #### L300.3900, L300.4310 #### [facility] [address] [place], [address] BASIC METABOLIC Collected: 10/14/2017 Status: F Source: [place] PROFILE (BMP) 5:55 AM [facility] REPOSITORY TYPE CODE TESTS RESULT OUT OF RANGE REFERENCE UNITS LAB L501.0100 74-106 mg/dL High GLU 118 Result Comment: Fasting Glucose result from 100 to 125 mg/dL suggests IMPAIRED HOMEOSTASIS per A.D.A. criteria. Please note revised GLUCOSE reference range effective 2017. LAB L501.1000 7-18 mg/dL High BUN 22 LAB L501.1100 0.70-1.30 mg/dL Normal CREAT,SERUM 1.11 Result Comment: The validity of the calculated GFR AND GFRAA in patients over 70 years has not been determined. Clinical correlation is essential. LAB L501.1110 >60 mL/min Normal EST GFR 69 Result Comment: Non- GFR Calc LAB L501.1115 >60 mL/min Normal EST GFR - AA 83 Result Comment: GFR Calc LAB L501.1255 ml/min Normal Estimated CRCL 64.98 LAB L501.1300 10-20 RATIO Normal BUN/CRE 19.8 LAB L501.2200 8.5-10 mg/dL Normal .1 CA 8.7 LAB L501.5300 136-14 mmol/L Normal 5 NA 143 LAB L501.5600 3.5-5. mmol/L Normal 1 K 4.3 LAB L501.5900 98-107 mmol/L High CL 108 LAB L501.6100 21.0-3 mmol/L Normal 2.0 CO2 26.0 LAB L501.6200 5-15 Normal GAP 9 Performed By: #### L500.2500, L500.4100 #### [facility] [address] [place], [place], [address] LIPID PROFILE Collected: 10/14/2017 Status: F Source: [place] 5:55 AM [facility] REPOSITORY TYPE CODE TESTS RESULT OUT OF RANGE REFERENCE UNITS LAB L501.4900 200 mg/dL Normal CHOL 95 Result Comment: <200 mg/dL Desirable 200-240 mg/dL Borderline >240 mg/dL High Risk LAB L501.5000 mg/dL Normal TRIG 192 Result Comment: The drugs N-Acetylcysteine and Metamizole may falsely depress this assay. Serum Triglycerides Reference Interval Normal <150 mg/dL Borderline high 150 - 199 mg/dL High 200 - 499 mg/dL Very High > or = 500 mg/dL LAB L501.6400 mg/dL Low HDL 28 Result Comment: The drugs N-Acetylcysteine and Metamizole may falsely depress this assay. Reference Range HDL <40 mg/dL Low HDL Cholesterol HDL >or= 60 mg/dL High HDL Cholesterol LAB L501.6500 0-130 mg/dL Normal LDL 29 LAB L501.6600 5-40 mg/dL Normal VLDL 38 Performed By: #### L500.2500, L500.4100 #### [facility] [address] [facility] [place], [place], [id number] TROPONIN-I Collected: 10/13/2017 Status: F Source: [place] 10:40 PM [facility] REPOSITORY Order Comment: 'TROP' Serial specimen #1, #2 or #3: 3 TYPE CODE TESTS RESULT OUT OF RANGE REFERENCE UNITS LAB L501.4010 <0.045 ng/mL Normal < 0.015 TROPONIN-I Result Comment: TROPONIN-I EXPECTED VALUES <0.045 Negative 0.045 - 0.590 Consistent with Cardiac Damage > OR = 0.600 Critical Value Not every elevated troponin is indicative of OH. These values should be used with clinical judgement in examining the patient's clinical picture for diagnosis. To establish a diagnosis of OH versus myocardial injury, there must be a demonstrated rise and/or fall in the troponin values, in addition to ischemic symptoms, EKG changes, new regional wall motion abnormality, and/or angiographical evidence. PLEASE NOTE: REFERENCE RANGES EDITED 17 Performed By: #### L501.4010 #### [facility] [address] [place], [address] HISTORY AND PHYSICAL Observed: 10/13/2017 Status: F Source: [place] EXAM 7:44 PM [facility] REPOSITORY [facility] Medical Records Department [address] [place] [address] History and Physical 10/13/17 1832 MR#: [id number] Acct: [id number] Name: SACHA BOLES Rep #: [id number] : 1940 77 From: Nitza Angela PCP: Kodi Suero MD Status: ADM ASHLEY Y Location: [place] [address] Problem List (1) Chest discomfort Status: Acute (2) Nicotine addiction Status: Chronic Qualifiers: Nicotine product type: cigarettes Substance use status: unspecified nicotine-induced disorder Qualified Code(s): F17.219 - Nicotine dependence, cigarettes, with unspecified nicotine-induced disorders (3) Sleep-disordered breathing Status: Chronic (4) Anxiety and depression Status: Suspected (5) Diabetes mellitus type 2 in obese Status: Chronic (6) Post PTCA Status: Chronic Comment: LAD and circumflex (7) CAD (coronary artery disease) Status: Chronic Qualifiers: Coronary Disease-Associated Artery/Lesion type: unspecified vessel or lesion type [place] vs. transplanted heart: unspecified whether [place]ne[place] or transplanted heart Associated angina: angina presence unspecified Qualified Code(s): I25.10 - Atherosclerotic heart disease of [place] coronary artery without angina pectoris (8) Hyperlipidemia Status: Chronic Qualifiers: Hyperlipidemia type: pure hypercholesterolemia Qualified Code(s): E78.00 - Pure hypercholesterolemia, unspecified; E78.0 - Pure hypercholesterolemia (9) HTN (hypertension) Status: Chronic Qualifiers: Hypertension type: essential hypertension Qualified Code(s): I10 - Essential (primary) hypertension History of Present Illness Date of Admission: 10/13/17 Chief Complaint: Chest pain, LH, Dizziness The patient is a 77 y/o M w/ PMHx: HTN, HLD, CAD s/p PCI LAD and Circumflex 02/2016, Obesity, Tobacco Use who present to the [facility] ED on 10/13/17 with 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 Patient contacted Dr. Cirstina office who recommended presentation to the ED and also made appointment for patient. He noted prior to the onset he did have 1-2 minutes of vertigo which resolved and then he had onset of chest discomfort. He notes he has occasionally had vertigo but this has only lasted minutes and has never been prolonged. He notes general several week history of increased fatigue w/ notable bradycardia. He also notes recent car trip to [place]. In the ED work-up included afebrile, heart rate 48, BP 134/67, respiratory rate 13, 90% on 2 L nasal cannula, CBC, unremarkable d-dimer, BMP with BUN/Cr 22/1.13, glucose 112, < 0.015, EKG w/ sinus bradycardia, CT Head without acute findings, CXR with chronic changes. In the ED patient administered ASA. Last noted stress testing performed 05/18/16 w/ noted resting EKG sinus bradycardia with good functional capacity and heart rate response to exercise appropriate as well as BP response to exercise with some resting hypertension consistent with an appropriate response with no chest pain, arrhythmia or ST changes. Past Medical History Past Medical History (Chronic Problems): Chronic Problems (Last Updated 04/21/17 @ 10:36 by DANIELLE Molina) Nicotine addiction (Chronic) Sleep-disordered breathing (Chronic) Left atrial enlargement (Chronic) LVH (left ventricular hypertrophy) (Chronic) Diabetes mellitus type 2 in obese (Chronic) Post PTCA (Chronic 2015) LAD and circumflex CAD (coronary artery disease) (Chronic) Hyperlipidemia (Chronic) HTN (hypertension) (Chronic) PAC (premature atrial contraction) (Chronic) PVC (premature ventricular contraction) (Chronic) Medical History: Medical History (Last Updated 04/21/17 @ 10:36 by DANIELLE Molina) Diabetes mellitus type 2 in obese (Chronic) E11.9, E66.9 CAD (coronary artery disease) (Chronic) I25.10 Hyperlipidemia (Chronic) E78.5 HTN (hypertension) (Chronic) I10 Allergies No Known Allergies Allergy (Verified 04/21/17 10:51) Home Medications: Ambulatory Orders Medication Instructions Recorded Acetaminophen [Tylenol Tablet] 325 - 650 mg PO Q6H PRN PRN #0 tab 03/02/16 Surgical History: Surgical History (Last Updated 04/21/17 @ 10:37 by DANIELLE Molina) Post PTCA (Chronic) Onset Date: 201561 LAD and circumflex Surgical History: - - PCI 2, tonsillectomy. Psychiatric History: No pertinent psych hx Lives: Spouse/ Significant Other Smoking Status: Former smoker - Patient quit approximately 1.5 years prior to current presentation. Tobacco Use: Non-smoker Alcohol: None Drugs: None - *Family History Maternal History Items: - - Patient denies any maternal or paternal family history including diabetes, heart disease, cancer. Paternal History Items: - - Patient denies any maternal or paternal family history including diabetes, heart disease, cancer. Review of Systems Constitutional: Reports: Malaise, Weakness, Fatigue. Denies: Chills, Fever, Weight Change HEENT: Denies: Head Aches, Sinus Congestion, Sinus Drainage Cardiovascular: Reports: Chest Pain, Chest Pressure, Chest Tightness, Light Headedness. Denies: Edema, Orthopnea, Palpitations Respiratory: Reports: Shortness of Breath. Denies: Cough, Shortness of breath at rest, Sputum production Gastrointestinal: Reports: Melena. Denies: Abdominal Pain, Nausea, Vomiting Genitourinary: Denies: Dysuria Musculoskeletal: Denies: Joint Pain, Joint Tenderness Skin: Denies: Rash, Wounds Neurological: Denies: Numbness, Tingling, Focal weakness Psychiatric: Denies: Anxiety, Depression, Homicidal Ideations, Suicidal Ideations Hematologic/ Lymphatic: Denies: Easy Bruising, Easy Bleeding VTE Information - Inpt Only VTE Present on Admission: No VTE Mechan Device Prophylaxis: SCD's VTE Pharm Prophylaxis ordered?: Yes Subjective: He did upright in the ED bed, no acute distress, notes marked improvement since initial onset of chest discomfort, currently 1 out of 10. Objective: Physical Examination: General: awake, alert, oriented x 3 and cooperative, seated upright in bed in no apparent distress, notes chest pain has improved, more pressure currently, reduced. Skin: normal color, turgor, no icterus, cyanosis. HEENT: AT/NC, EOMI, PERRLA, MMM, no carotid bruits or JVD noted. Lungs: CTA bilaterally, moderate effort, mild decrease BL bases, no rales, ronchi or wheezing. Heart: regular rate and rhythm; no gallop, rub audible. Abdomen: soft, obese, NTTP, ND, normal BS, no HSM. Extremities: no cyanosis, clubbing, or edema. Neurological: patient awake, alert, oriented x 3; cognitive function intact; pupils equally reactive to light and accomodation; cranial nerves II-XII grossly normal, moving all 4 extremities, no focal deficits, strength mildly globally decreased. Psychiatric: affect appears normal, no acute evidence of depressive or anxiety feelings. - Physical Exam Vital Signs Temp Pulse Resp BP Pulse Ox 97.8 F 48 L 13 134/67 H 95 10/13/17 16:20 10/13/17 18:16 10/13/17 18:16 10/13/17 18:16 10/13/17 18:16 Oxygen Flow Rate (L/min) 2 Oxygen Delivery Method Nasal Cannula Weight: 260 lb 2.327 oz Body Mass Index (BMI) 34.3 Laboratory Tests Past 24 Hrs Assessment/Plan All Active Problems (Last Updated 04/21/17 @ 10:36 by DANIELLE Molina) Chest discomfort (Acute) NSTEMI (non-ST elevated myocardial infarction) (Resolved) The patient is a 77 y/o M w/ PMHx: HTN, HLD, CAD s/p PCI LAD and Circumflex 02/2016, Obesity, Tobacco Use who present to the [facility] ED on 10/13/17 with 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 (1) Chest Pain: CBC, unremarkable d-dimer, BMP with BUN/Cr 22/1.13, glucose 112, < 0.015, EKG w/ sinus bradycardia, CT Head without acute findings, CXR with chronic changes. Will admit to PCU, place on a monitored bed to assure no acute myocardial infarction with serial cardiac enzymes and EKGs. Patient is able to perform exercise and does not have LBBB or V-pacing but does have history of PCI/ST-T changes with unclear wall motion abnormality at rest thus will proceed with AM nuclear stress test. ASA, NG, morphine. Will request Dr. Cristina consultation as patient has upcoming appt with him secondary to his current presentation and noted bradycardia to assure agreement with medication changes. (2) Sinus bradycardia, arrhythmia: She notes more recently has been feeling poorly, possibly related to chest pain patient however states that his heart rate is frequently in the 40s, will decrease metoprolol dose. (3) CAD: s/p PCI LAD and Circ 02/2016, following w/ Dr. Cristina, continue home regimen asa, plavix, statin, BB. (4) Hypertension: Continue home regimen including isosorbide, lisinopril, metoprolol with decreased dose given notable bradycardia, PRN hydralazine. (5) Hyperlipidemia: Continue home statin regimen. AM FLP. (6) Obesity: Weight loss and lifestyle changes encouraged, nutrition consulted for education and teaching. (7) Former Tobacco Use: Encouraged continued cessation. (8) Obesity: Weight loss and lifestyle changes encouraged. (9) DVT prophylaxis: SCD, Lovenox. Code Visit OBSV E AND M: [id number] Initial observation care L3 10/13/17 194 <Electronically signed by Nitza Angela > Date Nitza Angela Cosigner Signature: Date (if applicable) CC: Nitza Angela; Kodi Suero MD Signed TROPONIN-I Collected: 10/13/2017 Status: F Source: [place] 6:53 PM [facility] REPOSITORY Order Comment: 'TROP' Serial specimen #1, #2 or #3: 2 TYPE CODE TESTS RESULT OUT OF RANGE REFERENCE UNITS LAB L501.4010 <0.045 ng/mL Normal < 0.015 TROPONIN-I Result Comment: TROPONIN-I EXPECTED VALUES <0.045 Negative 0.045 - 0.590 Consistent with Cardiac Damage > OR = 0.600 Critical Value Not every elevated troponin is indicative of OH. These values should be used with clinical judgement in examining the patient's clinical picture for diagnosis. To establish a diagnosis of OH versus myocardial injury, there must be a demonstrated rise and/or fall in the troponin values, in addition to ischemic symptoms, EKG changes, new regional wall motion abnormality, and/or angiographical evidence. PLEASE NOTE: REFERENCE RANGES EDITED 17 Performed By: #### L501.4010 #### [facility] [address] [place], [address] EMERGENCY DEPARTMENT Observed: 10/13/2017 Status: F Source: [place] SUMMARY 6:51 PM [facility] REPOSITORY [facility] Medical Records Department [address] [facility] [place] [address] Emergency Department Summary 10/13/17 1644 MR#: [id number] Acct: [id number] Name: SACHA BOLES Rep #: [id number] : 1940 77 From: Lucinda Hall MD PCP: Kodi Suero MD Status: REG ER - ER Visit Summary Date of Service: 10/13/17 Chief Complaint: Chest pain History of Present Illness: The patient is a 77 M presenting with chest pain. 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 He had associated shortness of breath, nausea, diaphoresis, lightheadedness. He states initially he had spinning sensation. This spinning sensation resolved after approximately 1 minute. He has history of hypertension, hypercholesteremia, previous stents 1.5 years ago. He did have recent travel to [place] 2 weeks ago. He states it was a 12 hour car ride but he stopped frequently and got out of the car. He states he is under a lot of stress. Physical Examination: Vitals are stable. Patient is afebrile. Alert no acute distress. HEENT exam is unremarkable. Neck is supple. Lungs are clear and equal bilaterally. Heart is regular and bradycardic. Abdomen is soft nontender nondistended. Extremities are unremarkable. Skin is warm and dry. No focal neurologic deficit. NIH 0 Remainder of exam is unremarkable. Emergency Department Course and Treatment: Patient was given aspirin on arrival. He is pain-free on arrival. EKG is sinus bradycardia rate of 51. CBC, chemistries unremarkable. Troponin is negative. D-dimer negative. Chest x-ray shows no acute process. CT head shows no acute process. On reevaluation he is chest pain-free. Will discuss with the hospitalist for admission. Disposition: Admission Impression: Chest pain This note was generated with Melodig[employer] dictation software. It may contain incorrect words, spelling, and punctuation that were not noted in review of the chart prior to signing ED Disposition - Plan for ED Patient: Chief Complaint: Chest Pain Referrals: Kodi Suero MD [Primary Care Provider] - What to do if you have Problems For any increased pain, shortness of breath, bleeding, nausea or vomiting, chest pain, or any unexpected problems, contact your Primary Care Provider. Call [facility] ([phone]) or report to the closest Emergency Room. Call 911 if necessary. 10/13/17 1851 <Electronically signed by Lucinda Hall MD> Date Lucinda Hall MD Cosigner Signature (If Indicated): Date CC: Kodi Suero MD BRAIN/HEAD WITHOUT Observed: 10/13/2017 Status: F Source: [place] CONTRAST 4:41 PM [facility] REPOSITORY [facility] Imaging Services [address] [place] [id number] Brain/Head without Contrast MR#: [id number] Acct: [id number] Name: SACHA BOLES Rep #: [id number] : 1940 M 77 From: Yandel Flynn MD PCP: Kodi Suero MD Status: REG ER Study: Brain/Head without Contrast Date of Exam: 10/13/17 Exam# [id number] Ordering Dr: Lucinda Hall MD STUDY: CT BRAIN WITHOUT CONTRAST REASON FOR EXAM: Male, 77 years old. DIZZINESS, CP, SOB, DIZZY RADIATION DOSAGE (If Supplied By Facility): CTDIvol = ( 44.99 ) mGy, DLP = ( 829.85 ) mGycm TECHNIQUE: Transaxial CT imaging of the brain was performed without administration of intravenous contrast material. Individualized dose optimization techniques were used for this CT. COMPARISON: None. FINDINGS: Normal soft tissue structures. Normal calvarium. There are calcifications noted in the distal vertebral arteries. There are calcifications noted in the cavernous carotid arteries. This is consistent for atherosclerotic disease. There is a calcified mass along the midline perifalcine extra-axial space. This is likely a meningioma. Normal size ventricles and extra-axial spaces for the patient's age. Normal white matter tracts of the cerebral hemispheres. Normal basal ganglia and thalami. Normal brainstem. Normal cerebellum. There is no intracranial hemorrhage. There are no findings of an acute ischemic infarction. There is mild maxillary sinus disease. There is mild ethmoid sinus disease. CT/Brain/Head without Contrast IMPRESSION: Normal unenhanced CT scan of the brain. Electronically Signed: Yandel Flynn MD at 18:04 EDT , Service support , CC: Lucinda Hall MD; Kodi Suero MD Garment Liner: Signed CBC W/DIFF, AUTOMATED Collected: 10/13/2017 Status: F Source: [place] 4:35 PM [facility] REPOSITORY TYPE CODE TESTS RESULT OUT OF RANGE REFERENCE UNITS LAB L100.1000 4.4-11.0 K/mm3 Normal WBC 9.0 LAB L100.1200 4.6-6.2 M/mm3 Normal RBC 4.94 LAB L100.1300 13.0-16.5 g/dl Normal HGB 14.8 LAB L100.1400 40-54 % Normal HCT 44.5 LAB L100.1500 80-94 fL Normal MCV 90.1 LAB L100.1600 27.0-32.0 pg Normal MCH 30.0 LAB L100.1700 32-36 g/gl Normal MCHC 33.3 LAB L100.1810 11.6-14.6 % Normal RDW CV 13.1 LAB L100.1820 35.1-43.9 fl Normal RDW SD 42.6 LAB L100.1900 150-450 K/mm3 Normal PLT 200 LAB L100.2000 6.2-12.0 fl Normal MPV 10.0 LAB L100.2100 47-70 % High NEUT% 72.1 LAB L100.2200 19-41 % Normal LY% 19.3 LAB L100.2300 0-10 % Normal MONO% 6.5 LAB L100.2400 0-5 % Normal EO% 1.8 LAB L100.2500 0-1 % Normal BASO% 0.2 LAB L100.2550 0.0-0.9 % Normal IM GRAN % 0.100 Result Comment: IG% - Immature Granulocytes (promyelocytes, myelocytes and metamyelocytes) > 1% indicates that a LEFT SHIFT is Present. LAB L100.2620 2.0-7.7 X10 3/uL Normal Absolute Neut 6.5 LAB L100.2720 0.83-4.51 X10 3/ul Normal Absolute Lymph 1.73 Performed By: #### L100.0100 #### [facility] [address] [place] [address]. [place], [place], [address] BASIC METABOLIC Collected: 10/13/2017 Status: F Source: [place] PROFILE (BMP) 4:35 PM [facility] REPOSITORY TYPE CODE TESTS RESULT OUT OF RANGE REFERENCE UNITS LAB L501.0100 74-106 mg/dL High GLU 112 Result Comment: Fasting Glucose result from 100 to 125 mg/dL suggests IMPAIRED HOMEOSTASIS per A.D.A. criteria. Please note revised GLUCOSE reference range effective 2017. LAB L501.1000 7-18 mg/dL High BUN 22 LAB L501.1100 0.70-1.30 mg/dL Normal CREAT,SERUM 1.13 Result Comment: The validity of the calculated GFR AND GFRAA in patients over 70 years has not been determined. Clinical correlation is essential. LAB L501.1110 >60 mL/min Normal EST GFR 67 Result Comment: Non- GFR Calc LAB L501.1115 >60 mL/min Normal EST GFR - AA 81 Result Comment: GFR Calc LAB L501.1255 ml/min Normal Estimated CRCL 63.83 LAB L501.1300 10-20 RATIO Normal BUN/CRE 19.5 LAB L501.2200 8.5-10 mg/dL Normal .1 CA 10.1 LAB L501.5300 136-14 mmol/L Normal 5 NA 139 LAB L501.5600 3.5-5. mmol/L Normal 1 K 4.5 LAB L501.5900 98-107 mmol/L Normal CL 106 LAB L501.6100 21.0-3 mmol/L Normal 2.0 CO2 28.0 LAB L501.6200 5-15 Normal GAP 5 Performed By: #### L500.2500, L501.4010 #### [facility] [address] [facility] [place], [place], [address] TROPONIN-I Collected: 10/13/2017 Status: F Source: [place] 4:35 PM [facility] REPOSITORY TYPE CODE TESTS RESULT OUT OF RANGE REFERENCE UNITS LAB L501.4010 <0.045 ng/mL Normal < 0.015 TROPONIN-I Result Comment: TROPONIN-I EXPECTED VALUES <0.045 Negative 0.045 - 0.590 Consistent with Cardiac Damage > OR = 0.600 Critical Value Not every elevated troponin is indicative of [place]. These values should be used with clinical judgement in examining the patient's clinical picture for diagnosis. To establish a diagnosis of OH versus myocardial injury, there must be a demonstrated rise and/or fall in the troponin values, in addition to ischemic symptoms, EKG changes, new regional wall motion abnormality, and/or angiographical evidence. PLEASE NOTE: REFERENCE RANGES EDITED 17 Performed By: #### L500.2500, L501.4010 #### [facility] [address] [facility] [place], [place], [address] D-DIMER QUANTITATIVE Collected: 10/13/2017 Status: F Source: [place] (DVT/PE) 4:35 PM [facility] REPOSITORY TYPE CODE TESTS RESULT OUT OF RANGE REFERENCE UNITS LAB L300.8000 0.27-0.49 FEU/ug/m Low D-DIMER < 0.27 QUANT Result Comment: NORMAL D-Dimer level (<0.50) indicates no DVT or PE. Performed By: #### L300.8000 #### [facility] [address] [facility] [place], [address] MAGNESIUM Collected: 10/13/2017 Status: F Source: [place] 4:35 PM [facility] REPOSITORY TYPE CODE TESTS RESULT OUT OF RANGE REFERENCE UNITS LAB L501.5200 1.6-2.6 mg/dL Normal MG 2.1 Performed By: #### L501.5200 #### [facility] [address] [place], [address] CHEST 1 VIEW Observed: 10/13/2017 Status: F Source: [place] (PORTABLE) 4:24 PM [facility] REPOSITORY [facility] Imaging Services [address] [place] [address] Chest 1 View (Portable) MR#: [id number] Acct: [id number] Name: SACHA BOLES Rep #: [id number] : 1940 M 77 From: Yandel Flynn MD PCP: Kodi Suero MD Status: REG ER Study: Chest 1 View (Portable) Date of Exam: 10/13/17 Exam# [id number] Ordering Dr: Lucinda Hall MD STUDY: X-RAY CHEST REASON FOR EXAM: Male, 77 years old. CHEST PAIN TECHNIQUE: Single frontal view of the chest. COMPARISON: February 28, 2016 FINDINGS: Chronic appearing increased interstitial lung markings. There is no demonstrated pleural abnormality. Normal heart size. Normal mediastinum and grupo. Normal visualized pulmonary arteries. There is atherosclerotic calcification of the aortic arch with tortuosity. There are diffuse degenerative changes of the visualized thoracic spine. There is degenerative osteoarthritis of the bilateral shoulders. There is no demonstrated abnormality of the visualized soft tissue structures of the upper abdomen. RAD/Chest 1 View (Portable) IMPRESSION: There are no acute findings. Electronically Signed: Yandel Flynn MD at 18:03 EDT , Service support , CC: Lucinda Hall MD; Kodi Suero MD Garment Liner: Signed CARDIOLOGY VISIT Observed: 04/23/2017 Status: F Source: [place] REPORT 2:15 PM [facility] REPOSITORY [facility] [address] [place] [address] OFFICE VISIT Date of Service: 04/21/17 MR#: [id number] Acct: [id number] Name: SACHA BOLES Rep #: [id number] : 1940 Provider: Lorena Monge Age/Sex: 76/M Location: [facility] Status: Signed HPI HPI Details: SACHA BOLES, is a 76 M who presents to the office today for cardiovascular follow-up. He has a history of coronary artery disease with non-ST myocardial infarction and stenting of his LAD and circumflex in February 2016. Echocardiogram at that time demonstrated an ejection fraction of 65%. He also has a history of hypertension hyperlipidemia. Stress test in May 2016 was negative for ischemia. From a cardiac standpoint, patient is doing well. He does not have any chest discomfort/heaviness/tightness. His exercise tolerance is stable for his age. He does not have any worsening symptoms of shortness of breath. He denies any PND. He does not have any orthopnea. He does not have any symptoms of congestive heart failure. He does not have any palpitations that he is aware of. He does not have any lightheadedness or dizziness. He does not have any near-syncope or syncope. He does not have any lower extremity edema. He does not have any symptoms of claudication. He does admit to gaining weight, he feels that this is related to his lack of activity. Intake Vital Signs04/21/17 Height 6 ft 1 in 04/21/17 Weight: 276 lb 04/21/17 Body Mass Index (BMI) 36.3 04/21/17 Blood Pressure 130/80 04/21/17 Pulse Rate 63 Intake Visit Reasons: 6 M FU Allergies No Known Allergies Allergy (Verified 04/21/17 10:51) Medications Acetaminophen [Tylenol Tablet] 325 - 650 mg PO Q6H PRN PRN #0 tab 03/02/16 [Rx Confirmed 04/21/17] Aspirin [Aspirin, Baby] 81 mg PO DAILY@0800 tab.chew 03/02/16 [Rx Confirmed 04/06/17] Nitroglycerin [Nitrostat] 0.4 mg SUBLINGUAL Q5M PRN #1 bottle 03/02/16 [Rx Confirmed 04/06/17] lisinopril 40 mg tablet See Label Instructions PO BID tab 04/06/17 [History Confirmed 04/06/17] atorvastatin 80 mg tablet 80 mg PO DAILY@2200 #30 tab 04/11/17 [Rx Confirmed 04/21/17] clopidogrel 75 mg tablet 75 mg PO DAILY #30 tab 04/11/17 [Rx Confirmed 04/21/17] isosorbide mononitrate ER 30 mg tablet,extended release 24 hr 30 mg PO DAILY #30 tab 04/11/17 [Rx Confirmed 04/21/17] metoprolol tartrate 25 mg tablet 12.5 mg PO BID #90 tab 04/18/17 [Rx Confirmed 04/21/17] Ejection fraction %: 65 to 70 PFSH Medical History Diabetes mellitus type 2 in obese (Chronic) CAD (coronary artery disease) (Chronic) Hyperlipidemia (Chronic) HTN (hypertension) (Chronic) Surgical History Post PTCA (Chronic 2015) Social History Smoking Status: Current every day smoker ROS Const Const: Negative for weakness, fatigue, fever(s) or headache(s) Eyes Eyes: Negative for blind spots, loss of peripheral vision or transient loss of vision ENT ENT: Negative for headache(s), Negative for dizziness, Negative for tinnitus, Negative for Nosebleed/epistaxis Cardio Chest Pain: No Palpitations: Positive for No Edema: None Muscle aches with walking: None Resp Respiratory: Negative for SOB with activity, SOB at rest or SOB orthopnea\SOB lying down GI GI: Negative nausea, vomiting, heartburn or vomiting blood/hematemesis : Negative for hematuria Musc Musc: Negative for muscle aches/ myalgia Neuro Neuro: Negative for weakness, Negative for headache(s), Negative for dizziness, Negative for near syncope, Negative for syncope, Negative for lightheadedness Jayce Hematologic/Lymphatic: Negative for easy bleeding Endo Endo: Negative for fatigue Cardiology Exam Const Appearance: cooperative, no acute distress and well developed Orientation: alert, awake and oriented x3 Head Head: normocephalic and atraumatic Mouth: moist mucous membranes Eyes General: appearance normal, both eyes and all related structures Conjunctivae: conjunctivae normal Pupils: PERRL EOM: EOM intact bilaterally Neck Neck: normal visual inspection, no lymphadenopathy and no JVD Carotids: Negative bruit Neck Mass: Negative Neck mass Chest Chest inspection: normal inspection of the chest and symmetric chest movement Auscultation: Bilateral: Clear to Auscultation Cardio Palpation: normal PMI Rate: regular rate Rhythm: regular rhythm Heart sounds: S1 normal and S2 normal; negative rub, gallop or murmur GI GI: normal to inspection, soft, no hepatosplenomegaly and bowel sounds present; negative tender Neuro General: alert, awake, oriented x3, CN's II-XI intact bilaterally and moves all extremities Extremities Pulses: Normal: Right Posterior Tibial Pulse, Left Posterior Tibial Pulse, Right Radial Pulse, Left Radial Pulse Lower Extremity Edema: None: Bilateral Psych Psychological: normal affect Assessment AND Plan 1. 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 We recommend that they continue with current aggressive medical management and risk factor modification. 2. Essential hypertension I10 Plan - DANIELLE Molina Blood pressure is well controlled on current medications, we do not recommend any changes at this time. 3. Pure hypercholesterolemia E78.00; E78.0 Plan - DANIELLE Molina Laboratory Tests Cholesterol 106 LDL Cholesterol 41 HDL Cholesterol 31 L lipids are adequately controlled. Will not make any adjustments. Plan Detail Additional Comments - DANIELLE Molina The above patient was discussed with Dr. Ibeth torres, he agrees with plan of care. Thank you for allowing us to participate in patient's plan of care, if you have any questions please do not hesitate to call. This note was generated using a voice recognition system and there may be incorrect words, spelling or punctuation errors that were not noted when reviewing the office note prior to saving. 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 transplanted heart: chenega heart Essential hypertension I10 Hypertension type: essential hypertension Pure hypercholesterolemia E78.00; E78.0 Hyperlipidemia type: pure hypercholesterolemia 04/22/17 1329 <Electronically signed by Lorena SANTOS> Date Lorena SANTOS 04/23/17 1415<Electronically signed by James Cristina MD> Cosigner Signature: Date (if applicable) James Cristina MD CC: Kodi Suero MD ALLERGIES ALLERGIES DATE TYPE / CODE NAME / CODE REACTION SEVERITY SOURCE 02/13/2018 Drug No Known Unknown [place] [facility] Allergy/4160 Allergies/F00 [facility] 62606(SNOMED [id number](RXNOR Repository CT) M) ENCOUNTERS ENCOUNTERS ADMIT/DISCHARGE ACCOUNT ADMITTING ENCOUNTER LOCATION SOURCE NUMBER CLASS 04/03/2018 [id number] [place] [facility] ing:PT Repository 03/01/2018 [id number] [place] [facility] ing:RAD Repository 02/13/2018/ [id number] Ambulatory [facility]:B [place] [facility] 7 [facility] Repository 02/10/2018 [id number] Ambulatory [facility]:B [place] [facility] Repository 02/03/2018 [id number] Ambulatory [place] 4 [facility] ing:MRI Repository 01/26/2018 [id number] Ambulatory [place] [facility] ing:MFPLAB Repository 11/22/2017 [id number] Ambulatory [place] 0 [facility] ing:MTRAD Repository 11/17/2017 [id number] Ambulatory [place] 7 [facility] ing:RAD Repository 10/24/2017/ [id number] Ambulatory BMSBuilding:B [place] 8 4 [facility] Repository 10/19/2017/ [id number] Ambulatory BMSBuilding:B [place] [facility] 0 [facility] Repository 10/13/2017/ [id number] White, Nitza Ambulatory [place] 8 7 [facility] ing:PCURoom: Repository OIN145Wim: 1 10/13/2017 [id number] White, Nitza Ambulatory BMSBuilding:B [place] 5 [facility] Repository 10/13/2017 [id number] White, Nitza Ambulatory BMSBuilding:B [place] 4 [place] Repository 10/13/2017 [id number] White, Nitza Ambulatory BMSBuilding:B [place] 4 [place] Repository 10/13/2017/ [id number] Ambulatory BMSBuilding:W [place] 8 1 [facility] Repository 04/21/2017/ [id number] Ambulatory BMSBuilding:B [place] 8 6 [facility] Repository PAYERS PAYERS ENCOUNTER GUARANTOR PAYER SUBSCRIBER SOURCE 04/03/2018 SACHA BETANCOURT Insurance:[facility] KAE: [facility] [id number] Number[place] Repository [id number]: [phone] [id number] [phone] Date:9596-67-33RD [address] [place] [address]ER: 04/03/2018 Secondary SACHA W [place] Insurance:MEDICARE STARKEYDOB: Community PART A olicy [id number] Hospital Number: Repository [id number] Date:2007-06-13 04/03/2018 Tertiary NOT GIVENUNK [place] Insurance:SELF PAY [facility] Number: Effective Repository Date:2018-03-21 03/01/2018 SACHA W Primary SACHA [id number] Insurance:MEDICAL STARKEYDOB: [facility] [id number] Number[place] Repository [id number]: [phone] [id number] [phone] () Date:3274-82-74CN [address] [address]SS: 03/01/2018 Secondary SACHA W [place] Insurance:MEDICARE STARKEYDOB: Community PART A [facility] [id number] Hospital Number: Repository [id number] Date:2018-02-23 03/01/2018 Tertiary NOT GIVENUNK [place] Insurance:SELF PAY [facility] Number: Effective Repository Date:2018-02-23 02/13/2018 SACHA Lund Primary SACHA [id number] Insurance:MEDICAL STARKEYDOB: [facility] [id number] Number: Repository [address]Bws: 330 [id number] [phone] () Date:4971-64-77EE[address] [address]XM: 02/13/2018 Secondary SACHA Lund [place] Insurance:MEDICARE STARKEYDOB: Community PART A [facility] [id number] Hospital Number: Repository [id number] Date:2017-04-21 02/13/2018 Tertiary NOT GIVENUNK [place] Insurance:SELF PAY [facility] Number: Effective Repository Date:2018-02-13 02/10/2018 SACHA W Primary SACHA Judd [id number] Insurance:MEDICAL STARKEYDOB: [facility] [id number] Number: Repository [address]Wtr: 330 [id number] [phone] (HP) Date:6978-04-21PX[address] [address]AJ: 02/10/2018 Secondary SACHA W [place] Insurance:MEDICARE STARKEYDOB: Community PART A olicy [id number] Hospital Number: Repository [id number] Date:2018-02-10 02/10/2018 Tertiary NOT GIVENUNK [place] Insurance:SELF PAY [facility] Number: Effective Repository Date:2018-02-10 02/03/2018 SACHA W Primary SACHA Lund [place] [id number] Insurance:MEDICAL STARKEYDOB: [id number] Number: Repository [id number]: 330 [id number] [phone] (HP) Date:6588-29-00LW [address] [address]GQ: 02/03/2018 Secondary SACHA W [place] Insurance:MEDICARE STARKEYDOB: Community [facility] [id number] Hospital Number: Repository [id number] Date:2018-01-27 02/03/2018 Tertiary NOT GIVENUNK [place] Insurance:SELF PAY [facility] Number: Effective Repository Date:2018-01-27 01/26/2018 SACHA W Primary SACHA Lund [place] [id number] Insurance:MEDICAL STARKEYDOB: [facility] [id number] Number: Repository [address]Nhv: 330 [id number] [phone] (HP) Date:4259-08-99MR[address] [address]EW: 01/26/2018 Secondary SACHA W [place] Insurance:MEDICARE STARKEYDOB: Community PART A olicy [id number] Hospital Number: Repository [id number] Date:2018-01-26 01/26/2018 Tertiary NOT GIVENUNK [place] Insurance:SELF PAY [facility] Number: Effective Repository Date:2018-01-26 11/22/2017 SACHA W Primary SACHA Judd [id number] Insurance:MEDICAL STARKEYDOB: [facility] [id number] Number: Repository [address]Kns: 330 [id number] [phone] (HP) Date:8648-84-01JU [address] [place] [address]ZW: 11/22/2017 Secondary SACHA Judd Insurance:MEDICARE STARKEYDOB: Community PART A [facility] [id number] Hospital Number: Repository [id number] Date:2017-11-22 11/22/2017 Tertiary NOT GIVENUNK [place] Insurance:SELF PAY [facility] Number: Effective Repository Date:2017-11-22 11/17/2017 SACHA W Primary SACHA Judd [id number] Insurance:MEDICAL STARKEYDOB: [facility] [id number] Number: Repository [address]Esj: 330 [id number] [phone] (HP) Date:7518-95-54GX [address] [place] [address]SC: 11/17/2017 Secondary SACHA Judd Insurance:MEDICARE STARKEYDOB: Community PART A [facility] [id number] Hospital Number: Repository [id number] Date:2017-11-09 11/17/2017 Tertiary NOT GIVENUNK [place] Insurance:SELF PAY [facility] Number: Effective Repository Date:2017-11-09 10/24/2017 SACHA W Primary SACHA Judd [id number] Insurance:MEDICAL STARKEYDOB: [facility] [id number] Number: Repository [address]Tas: 330 [id number] [phone] (HP) Date:7845-82-99ZT [address] [place] [address]LC: 10/24/2017 Secondary SACHA W [place] Insurance:MEDICARE STARKEYDOB: Community PART A [facility] [id number] Hospital Number: Repository [id number] Date:2017-10-21 10/24/2017 Tertiary NOT GIVENUNK [place] Insurance:SELF PAY [facility] Number: Effective Repository Date:2017-10-24 10/19/2017 SACHA Lund Primary SACHA [id number] Insurance:MEDICAL STARKEYDOB: [facility] [id number] Number[place] Repository [address]Veb: 330 [id number] [phone] (HP) Date:3850-26-71OX [address] [place] [address]TV: 10/19/2017 Secondary SACHA W [place] Insurance:MEDICARE STARKEYDOB: Community PART A [facility] [id number] Hospital Number: Repository [id number] Date:2017-10-11 10/19/2017 Tertiary NOT GIVENUNK [place] Insurance:SELF PAY [facility] Number: Effective Repository Date:2017-10-19 10/13/2017 SACHA W Primary SACHA Judd [id number] Insurance:MEDICAL STARKEYDOB: [facility] [id number] Number[place] Repository [address]Jti: 330 [id number] [phone] (HP) Date:0530-21-75VN [address] [place] [address]OY: 10/13/2017 Secondary SACHA W [place] Insurance:MEDICARE STARKEYDOB: Community PART A [facility] [id number] Hospital Number: Repository [id number] Date:2017-10-13 10/13/2017 Tertiary NOT GIVENUNK [place] Insurance:SELF PAY [facility] Number: Effective Repository Date:2017-10-13 10/13/2017 SACHA W Primary SACHA Lund [place] [id number] Insurance:MEDICAL STARKEYDOB: [id number] Number: Repository [id number]: [phone] [id number] [phone] (HP) Date:0663-63-38KG [address] [address]NR: 10/13/2017 Secondary SACHA Judd Insurance:MEDICARE STARKEYDOB: Community [facility] [id number] Hospital Number: Repository [id number] Date:2017-10-13 10/13/2017 Tertiary NOT GIVENUNK [place] Insurance:SELF PAY [facility] Number: Effective Repository Date:2017-10-13 10/13/2017 SACHA Lund Primary SACHA Judd [id number] Insurance:MEDICAL STARKEYDOB: [facility] [id number] Number: Repository [address]Pyj: 330 [id number] [phone] (HP) Date:6695-31-83EP [address] [address]XJ: 10/13/2017 Secondary SACHA Lund [place] Insurance:MEDICARE STARKEYDOB: Community PART A [facility] [id number] Hospital Number: Repository [id number] Date:2017-10-13 10/13/2017 Tertiary NOT GIVENUNK [place] Insurance:SELF PAY [facility] Number: Effective Repository Date:2017-10-13 10/13/2017 SACHA Lund Primary SACHA Judd [id number] Insurance:MEDICAL STARKEYDOB: [facility] [id number] Number[place] Repository [address]Ldt: 330 [id number] [phone] (HP) Date:3390-25-09PG [address] [address]OK: 10/13/2017 Secondary SACHA Lund [place] Insurance:MEDICARE STARKEYDOB: Community PART A [facility] [id number] Hospital Number: Repository [id number] Date:2017-10-13 10/13/2017 Tertiary NOT GIVENUNK [place] Insurance:SELF PAY [facility] Number: Effective Repository Date:2017-10-13 10/13/2017 SACHA Lund Primary SACHA Judd [id number] Insurance:MEDICAL STARKEYDOB: [place] [id number] Number: Repository [id number]: [phone] [id number] [phone] (HP) Date:9313-45-40ZR [address] [place] [address]LQ: 10/13/2017 Secondary SACHA W [place] Insurance:MEDICARE STARKEYDOB: [facility] PART A [facility] [id number] Hospital Number: Repository [id number] Date:2017-10-13 10/13/2017 Tertiary NOT GIVENUNK [place] Insurance:SELF PAY [facility] Number: Effective Repository Date:2017-10-13 04/21/2017 SACHA W Primary SACHA W [place] [id number] Insurance:MEDICAL STARKEYDOB: [address] Number: Repository [address]Huo: [phone] [id number] [phone] () Date:1525-41-05UZ [address] [place] [address]OC: 04/21/2017 Secondary SACHA W [place] Insurance:MEDICARE STARKEYDOB: [facility] PART A [facility] [id number] Hospital Number: Repository [id number] Date:2017-02-16 04/21/2017 Tertiary NOT GIVENUNK [place] Insurance:SELF PAY [facility] Hospital Number: Effective Repository Date:2017-02-16
== END ==
PROVIDERS: Family Provider Family Medicine; PCP Family Medicine; Referring Provider Specialist; Visit Provider Specialist
DX: M16.11 Unilateral primary osteoarthritis, right hip (principal)
CPT/HCPCS: 20610; 77002; Q9967; J0702

== ENCOUNTER 2018-04-24 10:00 | Outpatient (RCR) | payer OTHER, MEDICARE, SELFPAY ==
[2016-03-01 15:34] VITALS: BMI 34.5
[2018-02-13 10:57] VITALS: BMI 33.7
--- NOTE | 2018-03-22 13:03 | HP.PTEVAL ---
Patient's Visit Information SACHA BOLES is a 77 year old M referred to Physical Therapy by Olivier Ayala PA-C with a diagnosis of OTHER INTERVERTRBRAL DISC DISPLACEMENT LUMBAR ,SPONDYLOTHEISIS LUMBAR. Date of Evaluation: 03/22/18 Physical Therapist: Sacha Carias PT, Cert MDT, OCS - Visit Plan Frequency: 2x /Week Duration: 4 Weeks Plan: LUMBAR FLEXION ,DLS ABD/BACK,POSTURAL EX'S,MODALITIES TO INCLUDE LOSSING LUMBAR TRACTION - Subjective Findings: This 77 y/o male presents to physical therapy with lumbar pain with radiculopathy left leg.Paient has had left lumbar pain with radiculopathy for for years with symptoms intermmitant with prgressively worse. Patient seen orthopedic recommeded pain management for injections. Patient had MRI severe foraminal stenosis left,spinal,protrusion.Symptoms worse standing,walking. Patient symptoms better with rest sitting. Loaction of symptoms lateral hip to ankle. Patient c/o of parthesia tingling below knee to feet.Cough/sneezing -. Bowel/badder -. Patient has no PT in past. Patient had injection lright hip. Patient symptoms affects QOL and function. SOCIAL: . 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 GAIT: antalgic gait mild foward posture reciprocal pattern. NUERO: c/o parathesia/tingling ,sharp test +,reflexes L3-4,L4-5,L5-S1 1/3. SYMMTRIES: align. PALPATION: unremarkable. MMT: quads/hams 4/5,hip flexion 4-/5,ankle 4/5. LUMBAR ROM: flexion min loss ,extension mod loss,side glides min/mod loss,. FLEXABLITY: hams mod loss ,piriformis mod loss right - Special Tests L/S Slump test left side: Negative L/S Slump test right side: Negative Lumbar Standing: Flexion - Mechanical Response: No effect Lumbar Standing: Flexion - Symptoms During Testing: No effect Lumbar Standing: Flexion - Symptoms After Testing: No effect Lumbar Standing: Extension - Mechanical Response: No effect Lumbar Standing: Extension - Symptoms During Testing: Increases Lumbar Standing: Extension - Symptoms After Testing: Worse Lumbar Lying: Flexion - Mechanical Response: No effect Lumbar Lying: Flexion - Symptoms During Testing: Decreases Lumbar Lying: Flexion - Symptoms After Testing: Better - Goals Goal 1:: Independant with HEP Goal Time Frame: 4-6 Weeks Goal 2:: Independant with posture for ADL'S Goal Time Frame: 4-6 Weeks Goal 3:: Decrease lumbar pain with radicular symptoms left leg by 50% to improve walking and standing Goal Time Frame: 4-6 Weeks Goal 4:: Patient to improve BACK FINA score by 5 points to improve QOL. 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 Rehabilitation Potential: Good - Anticipated Interventions Patient/Client Instruction: Educate patient on: Condition, Plan of Care For the Purpose of:: To decrease pain, To increase ROM, To improve muscle performance and motor function, To improve ability to perform ADL's, To increase tolerance to activity/condition/position, To improve ability of physical actions for home/community/work/leisure, To improve health of tissue, To decrease soft tissue restriction, To reduce risk of recurrence, To improve ability to perform tasks related to life management Therapeutic Exercise to Include: Strength training, Postural training, Flexibilty training, Dynamic Lumbar Stabilization For the Purpose of:: To decrease pain, To increase ROM, To improve muscle performance and motor function, To increase tolerance to activity/condition/position, To improve ability of physical actions for home/community/work/leisure, To improve health of tissue, To decrease soft tissue restriction, To increase flexibility/ROM, To reduce risk of recurrence, To improve ability to perform tasks related to life management TENS: Yes IF ES: Yes Thermo therapy (hot pack): Yes Ultrasound (thermal/non thermal): Yes Pelvic traction supine: Yes For the Purpose of:: To decrease pain, To increase ROM, To improve muscle performance and motor function, To improve ability to perform ADL's, To increase tolerance to activity/condition/position, To improve ability of physical actions for home/community/work/leisure, To improve health of tissue, To decrease soft tissue restriction, To increase flexibility/ROM, To improve ability to perform tasks related to life management Thank you for the opportunity to evaluate your patient. For Medicare and Medicare HMO plans, please review the plan of care and approve it. It will need to be FAXED BACK to us at [phone] for Medicare purposes. For Medicare only, by signing this I certify the plan of care. Please let me know if there are questions or concerns regarding this plan of care. Physician Signature: Date:
--- NOTE | 2018-06-21 15:18 | HP.PTDCNRP_ITS ---
HP - Discharge Summary (1) - Patient Information SACHA BOLES was seen in my office for initial evaluation on 03/22/18. The following Plan of Care was established for this patient: Initial Frequency: 2x /Week Initial Duration: 4 Weeks - Anticipated Interventions Patient/Client Instruction: Educate patient on: Condition, Plan of Care For the Purpose of:: To decrease pain, To increase ROM, To improve muscle perfor rosa maria and motor function, To improve ability to perform ADL's, To increase tolerance to activity/condition/position, To improve ability of physical actions for home/community/work/leisure, To improve health of tissue, To decrease soft tissue restriction, To reduce risk of recurrence, To improve ability to perform tasks related to life management Therapeutic Exercise to Include: Strength training, Postural training, Flexibilty training, Dynamic Lumbar Stabilization For the Purpose of:: To decrease pain, To increase ROM, To improve muscle performance and motor function, To increase tolerance to activity/condition/position, To improve ability of physical actions for home/community/work/leisure, To improve health of tissue, To decrease soft tis marquis restriction, To increase flexibility/ROM, To reduce risk of recurrence, To improve ability to perform tasks related to life management TENS: Yes IF ES: Yes Thermo therapy (hot pack): Yes Ultrasound (thermal/non thermal): Yes Pelvic traction supine: Yes For the Purpose of:: To decrease pain, To increase ROM, To improve muscle performance and motor function, To improve ability to perform ADL's, To increase tolerance to activity/condition/position, To improve ability of physical actions for home/community/work/leisure, To improve health of tissue, To decrease soft tissue restriction, To increase flexibility/ROM, To improve ability to perform tasks related to life management This patient was last seen in our office 04/24/18. Pertinent comments regarding their Physical therapy will appear below: Patient seen for PT for lumbar pain with PT focusing on DLS abd/back,postural ex's,lumbar traction . Patient doing well. Thus d/c after epidural injection. At this point I will be discontinuing this patient from physical therapy. I would be happy to see this patient again in the future if found appropriate by the physician. Thank you! Sacha Carias, PT, Cert MDT, OCS
== END 2018-04-24 19:00 | disposition home or self-care (01) ==
LOC: PT 10:00
PROVIDERS: Family Provider Family Medicine; PCP Family Medicine; Referring Provider Physician Assistant; Visit Provider Physician Assistant
DX: M51.26 Other intervertebral disc displacement, lumbar region (principal); M43.16 Spondylolisthesis, lumbar region
CPT/HCPCS: 97012; 97110; 97162; 97530

== ENCOUNTER 2018-07-25 20:54 | Observation (INO) | payer OTHER, SELFPAY ==
[2016-03-01 15:34] VITALS: BMI 34.5
[2018-02-13 10:57] VITALS: BMI 33.7
[2018-07-25 20:58] VITALS: BP 186/90; PULSE 71; RESP 16; TEMP 36.7; O2SAT 98; BMI 35.4
[2018-07-25 21:03] VITALS: BP 186/90; PULSE 68; RESP 15; O2SAT 98
[2018-07-25 21:17] VITALS: O2SAT 98
--- NOTE | 2018-07-25 21:17 | EKG12_ITS ---
Test Reason : CP Blood Pressure : / mmHG Vent. Rate : 061 BPM Atrial Rate : 061 BPM P-R Int : 176 ms QRS Dur : 100 ms QT Int : 400 ms P-R-T Axes : 064 038 047 degrees QTc Int : 402 ms Normal sinus rhythm Normal ECG Confirmed by DELON MAE ([id number]), fan mail editor ALEENA SUERO ([id number]) on 07/31/2018 3:29:36 PM Referred By: Jj Clark Confirmed By:DELON MAE
--- NOTE | 2018-07-25 21:27 | CT_ITS ---
STUDY: CTA CHEST REASON FOR EXAM: Male, 78 years old. Left arm numbness. RADIATION DOSAGE (If Supplied By Facility): CTDIvol = ( 16.22 ) mGy, DLP = ( 541.04 ) mGycm TECHNIQUE: The examination was performed with the intravenous administration of 100ML IV Isovue 370. Post-processing of the angiographic images was performed, with multiplanar reformation and 3D reconstruction. Individualized dose optimization techniques were used for this CT. COMPARISON: None. FINDINGS: There are no filling defects in the pulmonary arteries to suggest pulmonary embolus. There is dependent atelectasis noted in the lungs. There are no pulmonary infiltrates or pleural effusions. There is no pneumothorax. The heart and pericardium are within normal limits. There are coronary artery calcifications. There is no evidence of thoracic aortic aneurysm. The contrast bolus is insufficient to exclude thoracic aortic dissection. There is no thoracic lymphadenopathy. Images through the upper abdomen demonstrate no significant abnormality. There are no destructive osseous lesions. CT/CTA Chest W/WO Contrast IMPRESSION: No evidence of pulmonary embolus or other acute thoracic disease. Coronary artery disease. Electronically Signed: Ishmael Kemp, at 22:36 EDT Tel , Service support ,
--- NOTE | 2018-07-25 21:27 | CT_ITS ---
STUDY: CT BRAIN WITHOUT CONTRAST REASON FOR EXAM: Male, 78 years old. Left arm numbness. RADIATION DOSAGE (If Supplied By Facility): CTDIvol = ( 44.99 ) mGy, DLP = ( 829.85 ) mGycm TECHNIQUE: Transaxial CT imaging of the brain was performed without administration of intravenous contrast material. Individualized dose optimization techniques were used for this CT. COMPARISON: 10/13/2017 FINDINGS: There is no acute bleed or infarct. There are normal white matter tracts. The ventricles are normal in configuration. There is no hydrocephalus. The visualized paranasal sinuses are clear. The mastoid air cells are well aerated. There is no skull fracture. CT/Brain/Head without Contrast IMPRESSION: No acute intracranial abnormality. Electronically Signed: Ishmael Kemp, at 22:29 EDT Tel , Service support ,
[2018-07-25 21:34] LABS: Absolute Neutrophil Count 5.7 X10^3/uL (2.0-7.7); Basophil# 0.01 X10^3/uL; Basophil% 0.1 % (0-1); Eosinophil# 0.16 X10^3/uL; Eosinophils% 1.8 % (0-5); Hemoglobin 14.1 g/dl (13.0-16.5); Lymphocyte % 21.9 % (19-41); Mean Corp Hgb Conc 34.4 g/gl (32-36); Mean Corpuscular Hgb 30.6 pg (27.0-32.0); Mean Corpuscular Volume 88.9 fL (80-94); Mean Platelet Vol. 9.8 fl (6.2-12.0); Monocyte# 0.87 X10^3/uL; Neutrophil # 5.71 X10^3/uL (2.7-7.7); Neutrophil % 65.9 % (47-70); POSITIVE COUNT NO; POSITIVE DIFFERENTIAL NO; POSITIVE MORPHOLOGY NO; Platelet Count 184 K/mm3 (150-450); RBC Distribution Width CV 13.3 % (11.6-14.6); RBC Distribution Width SD 43.3 fl (35.1-43.9); Red Blood Count 4.61 M/mm3 (4.6-6.2); White Blood Count 8.7 K/mm3 (4.4-11.0)
[2018-07-25 21:56] LABS: Anion Gap 6 (5-15); BUN 20 mg/dL (7-18); BUN/Creat Ratio 16.4 RATIO (10-20); Calcium,Total 8.5 mg/dL (8.5-10.1); Chloride 107 mmol/L (98-107); Creatinine, Serum 1.22 mg/dL (0.70-1.30); EST Glomerular Filtration Rate 61 mL/min (>60); Est Glom Filt Rate - Afr Amer 74 mL/min (>60); Estimated Creatinine Clearance 58.21 ml/min; Glucose 134 mg/dL (74-106); Potassium 3.8 mmol/L (3.5-5.1); Sodium Level 141 mmol/L (136-145)
[2018-07-25 22:20] VITALS: BP 151/80; PULSE 56; RESP 15; O2SAT 98
--- NOTE | 2018-07-25 23:18 | ED.VISSUMM ---
- ER Visit Summary Date of Service: 07/25/18 Chief Complaint: Chest pain and left-sided numbness History of Present Illness: The patient is a 78 M patient's chest pain and left-sided numbness started today around 5 PM suddenly. Patient does have uneventful recent history. 4 days ago, the patient developed hives [place]. He felt nauseated and weak. He had 2 syncopal episodes, 1 of them after EMS was called and while he was in the ambulance. He was presumed to have anaphylaxis and received epinephrine. He did have low blood pressure and was at [facility] on Tuesday and Tuesday. He was doing well yesterday and then today he noted his blood pressures were high. This evening around 5 PM he had chest pain that felt like a fullness. He said his left arm felt numb and his left face was numb. He felt dizzy. He had some nausea. Patient has a history of diabetes, hypertension, hyperlipidemia, and [place]. He has 2 coronary stents. He does take aspirin and Plavix. He had an unremarkable stress test about 9 months ago. Physical Examination: Afebrile and vital signs unremarkable. Blood pressure 151/80. Patient appears nontoxic and in no acute distress. Sitting and speaking comfortably. Heart regular rate and rhythm. Lungs clear. Abdomen soft and nontender. Extremities nontender with no edema. Skin normal in color without diaphoresis or pallor. Renal nerves grossly intact. Normal strength. Diminished sensation left arm and left face. Cerebellar testing grossly unremarkable. NIH stroke scale is 1. Test Results: EKG showed sinus rhythm at a rate of 61. CBC unremarkable. Glucose 134 and BUN 20. Troponin normal. CT brain showed no acute process. CTA chest showed coronary disease but no PE. Emergency Department Course and Treatment: Patient presents with cardiac and neurologic symptoms. I also considered vascular causes. EKG was done and the patient was monitored. Labs unremarkable. CT brain and CTA chest performed and also unremarkable. Patient's symptoms seem to be subsiding. He does not meet criteria for a stroke team or TPA. Patient does have risk factors for coronary disease and stroke. Hospitalist was contacted to admit. Treatment Plan: As above Disposition: Admission Impression: 1. Chest pain 2. Left-sided numbness This note was generated with Porch dictation software. It may contain incorrect words, spelling, and punctuation that were not noted in review of the chart prior to signing ED Disposition - Plan for ED Patient: Referrals: Kodi Ortiz MD [Primary Care Provider] -
--- NOTE | 2018-07-25 23:22 | PCM.HP.STD ---
Problem List (1) Chest pain Status: Acute History of Present Illness Date of Admission: 07/25/18 Chief Complaint: chest pain The patient is a 78 year old M with a history of former smoker; CAD status post stent in 2016; hypertension; hyperlipidemia; diabetes mellitus who presented to the emergency department with left-sided chest pain that started on the same day of admission. Patient reported his chest pain as fullness; and mild. Associated with his symptoms is nausea and shortness of breath with exertion. Also patient reports numbness of his left arm and his left face. Patient reports that he has had severely elevated blood pressure. On the morning of the day of presentation he went to his PCPs office. And since patient has an appointment with Dr. Cha, supervisor microbiology technologists, next week, the plan was that blood pressure medication will be adjusted by Dr. Cha. Patient had a stress test on 10/14/2017. His stress test was remarkable for physiological apical thinning without evidence of stress-induced myocardial ischemia or previous myocardial injury/infarction. Unremarkable [place] the zoo itself he developed anaphylactic shock and syncope and was admitted at [facility]. His anaphylactic shock was attributed to the use of gabapentin. Past Medical History Past Medical History (Chronic Problems): Chronic Problems (Last Reviewed 07/26/18 @ 00:42 by Jj Clark MD) Essential hypertension (Chronic) Atherosclerotic heart disease of [place] coronary artery without angina pectoris (Chronic) Nicotine addiction (Chronic) Sleep-disordered breathing (Chronic) Left atrial enlargement (Chronic) LVH (left ventricular hypertrophy) (Chronic) Diabetes mellitus type 2 in obese (Chronic) Hyperlipidemia (Chronic) PAC (premature atrial contraction) (Chronic) PVC (premature ventricular contraction) (Chronic) Medical History: Medical History (Last Reviewed 07/26/18 @ 00:47 by Jj Clark MD) Presence of stent in coronary artery (Resolved) Onset Date: ~03/01/16 Z95.5 PTCA/MADAY to mid LAD and Distal Lt CX 03/01/16 Essential hypertension (Chronic) I10 Atherosclerotic heart disease of [place] coronary artery without angina pectoris (Chronic) I25.10 Vertigo (Acute) R42 Bradycardia (Acute) R00.1 Palpitations (Inactive) R00.2 Chest discomfort (Acute) R07.89 Unstable angina (Inactive) I20.0 Nicotine addiction (Chronic) F17.200 Sleep-disordered breathing (Chronic) G47.30 Left atrial enlargement (Chronic) I51.7 LVH (left ventricular hypertrophy) (Chronic) I51.7 Diabetes mellitus type 2 in obese (Chronic) E11.9, E66.9 Hyperlipidemia (Chronic) E78.5 Unstable angina pectoris (Inactive) NSTEMI (non-ST elevated myocardial infarction) (Resolved) I21.4 PAC (premature atrial contraction) (Chronic) I49.1 PVC (premature ventricular contraction) (Chronic) I49.3 CAD (coronary artery disease) (Inactive) I25.10 HTN (hypertension) (Inactive) I10 Allergies gabapentin Allergy (Verified 07/25/18 21:03) Anaphylaxis Home Medications: Ambulatory Orders Medication Instructions Recorded Acetaminophen [Tylenol Tablet] 325 - 650 mg PO Q6H PRN PRN #0 tab 03/02/16 Aspirin [Aspirin, Baby] 81 mg PO DAILY 10/13/17 Nitroglycerin 0.4 mg SL PRN PRN #30 tab.subl 10/14/17 atorvastatin 80 mg tablet 80 mg PO DAILY #90 tab 03/27/18 clopidogrel 75 mg tablet 75 mg PO DAILY #90 tab 03/27/18 lisinopril 20 mg tablet 20 mg PO BID #180 tab 07/18/18 Surgical History: Surgical History (Last Reviewed 07/26/18 @ 00:47 by Jj Clark MD) History of tonsillectomy Z90.89 Presence of coronary angioplasty implant and graft Onset Date: ~03/01/16 Z95.5 PTCA/MADAY to mid LAD and Distal Lt CX 03/01/16 Post PTCA (Inactive) Onset Date: ~2015 Z98.61 LAD and circumflex Surgical History: - - PCI ?2, tonsillectomy. Psychiatric History: No pertinent psych hx Smoking Status: Former smoker Alcohol: None - *Family History Maternal Family History: Family History (Last Reviewed 07/26/18 @ 00:44 by Jj Clark MD) Mother Diabetes Cancer Father CVA (cerebral vascular accident) History Items: - - Patient denies any maternal or paternal family history including diabetes, heart disease, cancer. Paternal Family History: Family History (Last Reviewed 07/26/18 @ 00:44 by Jj Clark MD) Mother Diabetes Cancer Father CVA (cerebral vascular accident) History Items: - - Patient denies any maternal or paternal family history including diabetes, heart disease, cancer. Review of Systems Constitutional: Denies: Chills, Fever, Weight Change HEENT: Denies: Head Aches, Sinus Congestion, Sinus Drainage Cardiovascular: Reports: Chest Pain. Denies: Palpitations Respiratory: Reports: Shortness of breath at rest. Denies: Cough, Sputum production Gastrointestinal: Denies: Abdominal Pain, Nausea, Vomiting Genitourinary: Denies: Dysuria Musculoskeletal: Denies: Joint Pain, Joint Tenderness Skin: Denies: Rash, Wounds Neurological: Reports: Numbness. Denies: Focal weakness, Tingling Psychiatric: Denies: Anxiety, Depression, Homicidal Ideations, Suicidal Ideations Hematologic/ Lymphatic: Denies: Easy Bruising, Easy Bleeding VTE Information - Inpt Only VTE Present on Admission: No VTE Mechan Device Prophylaxis: None VTE Pharm Prophylaxis ordered?: Yes Patient Problems: Active and Suspected Problems (Last Reviewed 07/26/18 @ 00:42 by Jj Clark MD) Chest pain (Acute) - Physical Exam General: Alert, Oriented x3, Cooperative HEENT: Atraumatic, PERRLA, EOMI, Normocephalic Neck: Supple, No JVD, Negative Carotid Bruits Lungs: Clear to auscultation, Normal air movement Cardiovascular: Regular rate, No murmurs Abdomen: Bowel Sounds Present, Soft, Non Tender Extremities: No edema, Capillary Refill Less than 3 Seconds Skin: No rashes, No breakdown Musculoskeletal: No Tenderness to Palpation of Joints or Extremities Neurological: Cranial nerves II-XII grossly intact, Motor Exam 5/5 strength throughout, - - No dysmetria Psych/Mental Status: Normal Affect, Appropriate Vital Signs Temp Pulse Resp BP Pulse Ox 98.1 F 56 L 15 151/80 H 98 07/25/18 20:58 07/25/18 22:20 07/25/18 22:20 07/25/18 22:20 07/25/18 22:20 Oxygen Delivery Method Room Air Weight: 122 kg Body Mass Index (BMI) 35.4 Laboratory Tests Past 24 Hrs 07/25/18 07/25/18 21:23 21:23 WBC 8.7 RBC 4.61 Hgb 14.1 Hct 41.0 MCV 88.9 MCH 30.6 MCHC 34.4 RDW 13.3 RDW Differential 43.3 Plt Count 184 MPV 9.8 Immature Gran % (Auto) 0.300 Neut % (Auto) 65.9 Lymph % (Auto) 21.9 [place] % (Auto) 10.0 Eos % (Auto) 1.8 Baso % (Auto) 0.1 Absolute Neuts (auto) 5.7 Absolute Lymphs (auto) 1.90 Total Counted Not Reportable Sodium 141 Potassium 3.8 Chloride 107 Carbon Dioxide 28.0 Anion Gap 6 BUN 20 H Creatinine 1.22 Estim Creat Clear Calc 58.21 Est GFR (MDRD) Af Amer 74 Est GFR (MDRD) Non-Af 61 BUN/Creatinine Ratio 16.4 Glucose 134 H Calcium 8.5 Troponin I < 0.015 Assessment/Plan All Active Problems (Last Reviewed 07/26/18 @ 00:42 by Jj Clark MD) Chest pain (Acute) Presence of stent in coronary artery (Resolved ~03/01/16) Vertigo (Acute) Bradycardia (Acute) Chest discomfort (Acute) NSTEMI (non-ST elevated myocardial infarction) (Resolved) The patient is a 78 year old M with a history of CAD status post stent in 2016; hypertension; hyperlipidemia; diabetes mellitus who presented to the emergency department with left-sided chest pain; and numbness of his left side and left face. Chest pain Admit to a monitored bed on PCU CTPA independently reviewed confirms no acute cardiopulmonary process. EKG independently reviewed confirms SR Continue home ASA and plavix Morphine as needed for pain We will check lipid panel. Continue High intensity statin Serial cardiac enzymes Stat EKG as needed for chest pain Chemical Stress test in the AM if the cardiac enzymes are negative. Importantly patient complains of sciatic pain his left leg and also strokelike symptoms. Treadmill stress test not. Home lisinopril held because of probable stroke. Was on home Imdur. 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 Cha. Consider discussing patient's case with Dr. Cha, his supervisor microbiology technologists. Strokelike symptoms CT of the head was unremarkable -Check Hba1c, Lipid level Physical therapy, occupational therapy to work with patient. N.p.o. until bedside swallow eval. Continue Daily aspirin and High intensity statin Lipid profile and A1c ordered. Permissive hypertension till noon of 07/26/2018. Control blood pressure with labetalol for systolic blood pressure of more than 220 or diastolic blood pressure of more than 120. MRI/MRAM of head; brain; and neck. Hypertension We will hold home blood pressure medications for permissive hypertension. Labetalol as needed with parameters as above. Trend blood pressures. DVT Lovenox SC ordered Code Visit Inpatient E&M: 16128 Init Hosp L3
--- NOTE | 2018-07-25 23:23 | ED.DCSUM_ITS ---
- ER Visit Summary Date of Service: 07/25/18 Chief Complaint: Chest pain and left-sided numbness History of Present Illness: The patient is a 78 M patient's chest pain and left- sided numbness started today around 5 PM suddenly. Patient does have uneventful recent history. 4 days ago, the patient developed h[place]. He felt nauseated and weak. He had 2 syncopal episodes, 1 of them after EMS was called and while he was in the ambulance. He was presumed to have anaphylaxis and received epinephrine. He did have low blood pressure and was at [facility] on Tuesday and Tuesday. He was doing well yesterday and then today he noted his blood pressures were high. This evening around 5 PM he had chest pain that felt like a fullness. He said his left arm felt numb and his left face was numb. He felt dizzy. He had some nausea. Patient has a history of diabetes, hypertension, hyperlipidemia, and [place]. He has 2 coronary stents. He does take aspirin and Plavix. He had an unremarkable stress test about 9 months ago. Physical Examination: Afebrile and vital signs unremarkable. Blood pressure 151/80. Patient appears nontoxic and in no acute distress. Sitting and speaking comfortably. Heart regular rate and rhythm. Lungs clear. Abdomen soft and nontender. Extremities nontender with no edema. Skin normal in color without diaphoresis or pallor. Renal nerves grossly intact. Normal strength. Diminished sensation left arm and left face. Cerebellar testing grossly unremarkable. NIH stroke scale is 1. Test Results: EKG showed sinus rhythm at a rate of 61. CBC unremarkable. Glucose 134 and BUN 20. Troponin normal. CT brain showed no acute process. CTA chest showed coronary disease but no PE. Emergency Department Course and Treatment: Patient presents with cardiac and neurologic symptoms. I also considered vascular causes. EKG was done and the patient was monitored. Labs unremarkable. CT brain and CTA chest performed and also unremarkable. Patient's symptoms seem to be subsiding. He does not meet criteria for a stroke team or TPA. Patient does have risk factors for coronary disease and stroke. Hospitalist was contacted to admit. Treatment Plan: As above Disposition: Admission Impression: 1. Chest pain 2. Left-sided numbness This note was generated with LensVector dictation software. It may contain incorrect words, spelling, and punctuation that were not noted in review of the chart prior to signing ED Disposition - Plan for ED Patient: Referrals: Kodi Ortiz MD [Primary Care Provider] -
[2018-07-26] VITALS (8 sets, daily range): BP systolic 136–171; BP diastolic 72–97; PULSE 55–70; RESP 16; TEMP 36.5–36.7; O2SAT 96–98; BMI 34.9
--- NOTE | 2018-07-26 00:17 | MRI_ITS ---
STUDY: MRA OF THE HEAD WITHOUT CONTRAST REASON FOR EXAM: Male, 78 years old. Left facial numbness TECHNIQUE: 3-D mccv-xw-cvojeh (TOF) imaging was performed with MIPs. The study was performed unenhanced. COMPARISON: None. FINDINGS: There is mild short segment narrowing of the right petrous carotid artery. Normal left petrous carotid artery. Normal right cavernous carotid artery with a normal supraclinoid bifurcation. Normal left cavernous carotid artery with a normal supraclinoid bifurcation. Normal right A1 segments of the anterior cerebral artery. Normal left A1 segments of the anterior cerebral artery. Normal intact anterior communicating artery (ACOM). Normal bilateral A2 segments of the anterior cerebral arteries. Normal right M1 and M2 segments of the middle cerebral arteries, with a normal M1 bifurcation. Normal left M1 and M2 segments of the middle cerebral arteries, with a normal M1 bifurcation. Normal right posterior communicating artery (PCOM). Normal left posterior communicating artery (PCOM). Normal bilateral vertebral arteries. Normal basilar artery with a normal basilar bifurcation. The visualized bilateral superior cerebellar (SCA) arteries are normal. Normal bilateral P1, P2 and visualized P3 segments of the posterior cerebral arteries. There is no demonstrated aneurysm of the [place] of [place]. There is no major vessel occlusion or hemodynamically significant stenosis. There is no demonstrated abnormality of the visualized brain. MRI/MRA Head ONLY without Contrast IMPRESSION: Mild short segment narrowing of right petrous carotid artery. Otherwise, normal MRA of the head without high-grade stenosis or occlusion. Electronically Signed: Jose Dsouza, at 10:42 EDT Tel , Service support ,
--- NOTE | 2018-07-26 00:17 | MRI_ITS ---
STUDY: MRI BRAIN WITHOUT CONTRAST REASON FOR EXAM: Male, 78 years old. Left facial numbness TECHNIQUE: Standardized multiplanar fat and water weighted pulse sequences were obtained. COMPARISON: CT head 07/25/2018. FINDINGS: There is mild cerebral atrophy with widening of the extra-axial spaces and ventricular dilatation. There are minimal white matter hyperintensities, in the periventricular white matter tracts, consistent with chronic white matter ischemic changes. Normal bilateral basal ganglia. Normal thalami. There is no extra-axial fluid accumulation. Normal flow voids within the major intracranial circulation suggesting patency by spin echo criteria. Normal sella turcica, pituitary gland, infundibular stalk, optic chiasm and hypothalamus. Normal tectal plate and pineal gland. Normal midbrain, billy and medulla. Normal cerebellum. Normal basal cisterns. Normal bilateral temporal bones. Normal bilateral internal auditory canals. No demonstrated orbital abnormality, within the constraints of a routine brain study. Normal visualized paranasal sinuses. Normal calvarium and skull base. Normal visualized soft tissue structures. Normal visualized upper cervical spine. MRI/Brain without Contrast IMPRESSION: No acute intracranial abnormality. Chronic findings described above. Electronically Signed: Jose Dsouza, at 10:47 EDT Tel , Service support ,
--- NOTE | 2018-07-26 00:17 | EKG12_ITS ---
Test Reason : CP ADMISSION Blood Pressure : / mmHG Vent. Rate : 054 BPM Atrial Rate : 054 BPM P-R Int : 196 ms QRS Dur : 094 ms QT Int : 410 ms P-R-T Axes : 060 048 046 degrees QTc Int : 388 ms Sinus bradycardia Otherwise normal ECG When compared with ECG of 25-JUL-2018 21:05, MANUAL COMPARISON REQUIRED, DATA IS UNCONFIRMED Confirmed by LILY DAVIDSON ([id number]), publication editor ALEENA SUERO ([id number]) on 07/31/2018 4:47:03 PM Referred By: Jj Clark Confirmed By:GILMA DAVIDSON
--- NOTE | 2018-07-26 00:17 | MRI_ITS ---
STUDY: MRA NECK WITH AND WITHOUT CONTRAST REASON FOR EXAM: Male, 78 years old. Left facial numbness TECHNIQUE: 3-D jylr-ql-qjwhbz (TOF) imaging was performed in an 1.5 T MRI scanner. 25 IV Dotarem was administered for the contrast enhanced images. COMPARISON: Brain MRI and MRA performed the same day. FINDINGS: RIGHT CAROTID ARTERIES: Normal right common carotid artery (CCA). Normal right common carotid bulb. There is moderate atherosclerotic plaque formation of the origin of the right internal carotid artery with an estimated stenosis of 50-69% stenosis. Normal visualized cervical portion of the right internal carotid artery. Normal origin of the right external carotid artery (ECA). LEFT CAROTID ARTERIES: Normal left common carotid artery (CCA). Normal left common carotid bulb. There is mild atherosclerotic plaque formation of the origin of the left internal carotid artery with less than 50% cross sectional diameter stenosis. Normal visualized cervical portion of the left internal carotid artery. Normal origin of the left external carotid artery (ECA). VERTEBRAL ARTERIES: There is antegrade flow within the bilateral vertebral arteries with a small right vertebral artery, and a dominant left vertebral artery. MRI/MRA Neck WITH and W/O Contrast IMPRESSION: Moderate atherosclerotic plaque formation of the origin of the right internal carotid artery with an estimated stenosis of 50-69% stenosis. Mild atherosclerotic plaque formation of the origin of the left internal carotid artery with less than 50% cross sectional diameter stenosis. Electronically Signed: Jose Dsouza, at 11:07 EDT Tel , Service support ,
[2018-07-26 01:46] LABS: Hemoglobin A1c 6.6 % (4.2-6.3)
[2018-07-26 04:06] LABS: Absolute Lymphocyte Count 2.14 X10^3/ul (0.83-4.51); Absolute Neutrophil Count 5.3 X10^3/uL (2.0-7.7); Basophil# 0.01 X10^3/uL; Basophil% 0.1 % (0-1); Eosinophils% 2.4 % (0-5); Hematocrit 42.2 % (40-54); Hemoglobin 14.5 g/dl (13.0-16.5); Lymphocyte # 2.14 X10^3/ul (4.0); Lymphocyte % 25.6 % (19-41); Mean Corp Hgb Conc 34.4 g/gl (32-36); Mean Corpuscular Volume 87.2 fL (80-94); Mean Platelet Vol. 9.9 fl (6.2-12.0); Monocyte# 0.68 X10^3/uL; Monocyte% 8.1 % (0-10); Neutrophil % 63.6 % (47-70); Platelet Count 187 K/mm3 (150-450); RBC Distribution Width CV 13.4 % (11.6-14.6); RBC Distribution Width SD 41.6 fl (35.1-43.9); Red Blood Count 4.84 M/mm3 (4.6-6.2); White Blood Count 8.4 K/mm3 (4.4-11.0)
[2018-07-26 04:14] LABS: Prothrombin Time (Protime)PT. 13.3 SECONDS (11.7-14.9)
[2018-07-26 04:15] LABS: Partial Thromboplast Time 27.1 Seconds (24.1-36.2)
[2018-07-26 04:16] LABS: POSITIVE COUNT NO; POSITIVE DIFFERENTIAL NO; POSITIVE MORPHOLOGY NO
[2018-07-26 04:30] LABS: Anion Gap 7 (5-15); BUN 20 mg/dL (7-18); Calcium,Total 8.7 mg/dL (8.5-10.1); Chloride 108 mmol/L (98-107); Cholesterol 107 mg/dL (200); Creatinine, Serum 1.05 mg/dL (0.70-1.30); EST Glomerular Filtration Rate 73 mL/min (>60); Est Glom Filt Rate - Afr Amer 88 mL/min (>60); Estimated Creatinine Clearance 67.64 ml/min; Glucose 111 mg/dL (74-106); High Density Lipoprotein 29 mg/dL; Potassium 4.1 mmol/L (3.5-5.1); Sodium Level 141 mmol/L (136-145); Triglycerides 200 mg/dL; Very Low Density Lipoprotein 40 mg/dL (5-40)
[2018-07-26] MEDS: Aspirin 81 MG TAB.CHEW PO (05:48)
[2018-07-26] MEDS: Clopidogrel Bisulfate 75 MG Tablet PO (05:48)
--- NOTE | 2018-07-26 10:07 | STRESSREP_ITS ---
Stress Test Report Date: 07-26-18 Procedure: Pharmacologic stress nuclear imaging study Indications: Chest pain; CAD; PCI Consent: Per the patient Procedure: The patient underwent pharmacologic (Regadenoson) evaluation with a peak heart rate of 80 beats per minute (55 %predicted maximal heart rate) and a peak blood pressure of 150/84 mmHg. The baseline ECG demonstrated sinus bradycardia. The peak pharmacologic ECG demonstrated no obvious ECG changes. There were no cardiac dysrhythmias pretest, during pharmacologic infusion, or recovery. There was no complaint of chest discomfort during pharmacologic infusion or recovery. The examination was discontinued secondary to completion of protocol. Impression: 1. Pharmacologic (Regadenoson) evaluation 2. Peak pharmacologic ECG with no obvious ECG changes. 3. There were no cardiac dysrhythmias pretest, during pharmacologic infusion, or recovery. 4. Nuclear images pending Myocardial perfusion imaging study: Technique: The patient was injected with 14.8 millicuries of technetium 99m Cardiolite and subsequently rest SPECT Cardiolite nuclear imaging was obtained in the horizontal long, vertical long, and short axis views. The patient underwent pharmacologic (Regadenoson) evaluation with a peak heart rate of 80 beats per minute (55 % percent predicted maximal heart rate) and a peak blood pressure of 150/84 mmHg. The patient was injected with 44.4 millicuries of technetium 99m Cardiolite and subsequently stress SPECT Cardiolite nuclear imaging was obtained in the horizontal long, vertical long, and short axis views. A gated Cardiolite study at peak stress was obtained. Interpretation: Rest and stress SPECT Cardiolite nuclear imaging status post realignment, normalization, and attenuation correction demonstrate a small area of subtle diminished tracer uptake near the apical segments without significant change between rest and stress. There is end systolic thickening and brightening. The gated Cardiolite study demonstrates myocardial thickening and inward wall motion. The reported LVEF is 64 %. Impression: 1. Rest and stress SPECT Cardiolite nuclear imaging demonstrate a small area of subtle diminished tracer uptake near the apical segments without significant change between rest and stress appearing compatible with physiologic apical thinning with no myocardial perfusion changes considered diagnostic for associated stress-induced myocardial ischemia. 2. The gated Cardiolite study reports an LVEF of 64 %. This note was generated with Use It Better software. It may contain incorrect words, spelling, and punctuation that were not noted in checking the note before signing.
--- NOTE | 2018-07-26 11:39 | DCINST_ITS ---
- Discharge Diagnoses Current Active Problems: Current Active and Chronic Problems (Last Reviewed 07/26/18 @ 00:47 by Jj Clark MD) Chest pain (Acute) You will use the following diet at home:: Calorie/Carbohydrate Controlled (specify 1200, 1400, etc) - 1800 Your food should be the consistency of: Regular Your liquids should be the consistency of: Regular/Thin Discharge Activity: Return to Normal Activity Weight Bearing Status: Full weight bearing Allergies/Adverse Reactions: Allergies gabapentin Allergy (Verified 07/25/18 21:03) Anaphylaxis Medications to take at Discharge Acetaminophen [Tylenol Tablet] 325 - 650 mg PO Q6H PRN PRN #0 tab 03/02/16 Aspirin [Aspirin, Baby] 81 mg PO DAILY 10/13/17 Nitroglycerin 0.4 mg SL PRN PRN #30 tab.subl 10/14/17 atorvastatin 80 mg tablet 80 mg PO DAILY #90 tab 03/27/18 clopidogrel 75 mg tablet 75 mg PO DAILY #90 tab 03/27/18 lisinopril 20 mg tablet 20 mg PO BID #180 tab 07/18/18 Primary Care Physician: Kodi Ortiz MD [Primary Care Provider] - Please follow up with your Primary Care Physician in: next week Test Results: Test results from this visit will be discussed in further detail at your follow- up appointment, if applicable.
--- NOTE | 2018-07-26 19:48 | DS.PCM_ITS ---
Discharge Date and Diagnosis Date of Admission: 07/25/18 Date of Discharge: 07/26/18 - Primary Discharge Diagnosis #1 musculoskeletal chest pain #2 coronary artery disease-by history #3 essential hypertension #4 type 2 diabetes #5 moderate right carotid occlusive disease #6 left-sided paresthesias-etiology unclear - Secondary Discharge Diagnosis Chronic Problems (Last Reviewed 07/26/18 @ 00:47 by Jj Clark MD) Essential hypertension (Chronic) Atherosclerotic heart disease of [place] coronary artery without angina pectoris (Chronic) Nicotine addiction (Chronic) Sleep-disordered breathing (Chronic) Left atrial enlargement (Chronic) LVH (left ventricular hypertrophy) (Chronic) Diabetes mellitus type 2 in obese (Chronic) Hyperlipidemia (Chronic) PAC (premature atrial contraction) (Chronic) PVC (premature ventricular contraction) (Chronic) Hospital Course and Treatment Operations: None Procedures: Nuclear stress test Summary of Care Provided: The patient is a 78 year old M who was seen in the emergency room at [facility] with chief complaint of left-sided chest pain and left arm numbness. He described the chest pain as pressure-like in quality. Patient had a history of coronary artery disease in the past and had 2 stents placed in 2016. Work-up in the emergency room included a CT of the brain and a CTA of the chest which were unremarkable, labs were unremarkable, EKG showed no evidence of ischemic changes, hospitalist service was called to place the patient and observation status on PCU where his enzymes were cycled. Patient's cardiac enzymes remain normal, MRA of the head and neck were performed showing only moderate occlusive disease of the right carotid artery. Patient's brain MRI was unremarkable. Patient had a nuclear stress test which was negative for reversible ischemia. On 07/26/2018, patient was seen and examined: On examination he appeared in good health and spirits. Vital signs as documented. Skin warm and dry and without overt rashes. Neck without JVD. Lungs clear. Heart exam notable for regular rhythm, normal sounds and absence of murmurs, rubs or gallops. Abdomen unremarkable and without evidence of organomegaly, masses, or abdominal aortic enlargement. Extremities nonedematous. Neuro: Cranial nerves II through XII are grossly intact, no focal motor deficits were noted, sensation to light touch and pinprick intact. Psych: Patient is alert and oriented x3, he does not appear anxious or depressed On 07/26/2018, patient was seen and examined and felt to be in stable condition for discharge home - Physical Exam Vital Signs Temp Pulse Resp BP Pulse Ox 98.1 F 58 L 16 136/72 H 97 07/26/18 12:48 07/26/18 12:48 07/26/18 12:48 07/26/18 12:48 07/26/18 12:48 Oxygen Delivery Method Room Air Weight: 120 kg Body Mass Index (BMI) 34.9 Intake and Output for Last 24 Hours 07/24/18 07/25/18 07/26/18 23:59 23:59 23:59 Intake Total 250 / 250 Balance 250 / 250 Laboratory Tests Past 24 Hrs 07/25/18 07/25/18 07/25/18 21:23 21:23 21:23 WBC 8.7 RBC 4.61 Hgb 14.1 Hct 41.0 MCV 88.9 MCH 30.6 MCHC 34.4 RDW 13.3 RDW Differential 43.3 Plt Count 184 MPV 9.8 Immature Gran % (Auto) 0.300 Neut % (Auto) 65.9 Lymph % (Auto) 21.9 Humphreys % (Auto) 10.0 Eos % (Auto) 1.8 Baso % (Auto) 0.1 Absolute Neuts (auto) 5.7 Absolute Lymphs (auto) 1.90 Total Counted Not Reportable PT INR APTT Sodium 141 Potassium 3.8 Chloride 107 Carbon Dioxide 28.0 Anion Gap 6 BUN 20 H Creatinine 1.22 Estim Creat Clear Calc 58.21 Est GFR (MDRD) Af Amer 74 Est GFR (MDRD) Non-Af 61 BUN/Creatinine Ratio 16.4 Glucose 134 H Hemoglobin A1c 6.6 H Calcium 8.5 Troponin I < 0.015 Triglycerides Cholesterol LDL Cholesterol VLDL Cholesterol HDL Cholesterol 07/26/18 07/26/18 07/26/18 00:45 03:45 03:45 WBC 8.4 RBC 4.84 Hgb 14.5 Hct 42.2 MCV 87.2 MCH 30.0 MCHC 34.4 RDW 13.4 RDW Differential 41.6 Plt Count 187 MPV 9.9 Immature Gran % (Auto) 0.200 Neut % (Auto) 63.6 Lymph % (Auto) 25.6 Humph[place]ys % (Auto) 8.1 Eos % (Auto) 2.4 Baso % (Auto) 0.1 Absolute Neuts (auto) 5.3 Absolute Lymphs (auto) 2.14 Total Counted Not Reportable PT INR APTT Sodium 141 Potassium 4.1 Chloride 108 H Carbon Dioxide 26.0 Anion Gap 7 BUN 20 H Creatinine 1.05 Estim Creat Clear Calc 67.64 Est GFR (MDRD) Af Amer 88 Est GFR (MDRD) Non-Af 73 BUN/Creatinine Ratio 19.0 Glucose 111 H Hemoglobin A1c Calcium 8.7 Troponin I < 0.015 < 0.015 Triglycerides 200 H Cholesterol 107 LDL Cholesterol 38 VLDL Cholesterol 40 HDL Cholesterol 29 L 07/26/18 03:45 WBC RBC Hgb Hct MCV MCH MCHC RDW RDW Differential Plt Count MPV Immature Gran % (Auto) Neut % (Auto) Lymph % (Auto) Humphre[place] % (Auto) Eos % (Auto) Baso % (Auto) Absolute Neuts (auto) Absolute Lymphs (auto) Total Counted PT 13.3 INR 1.0 APTT 27.1 Sodium Potassium Chloride Carbon Dioxide Anion Gap BUN Creatinine Estim Creat Clear Calc Est GFR (MDRD) Af Amer Est GFR (MDRD) Non-Af BUN/Creatinine Ratio Glucose Hemoglobin A1c Calcium Troponin I Triglycerides Cholesterol LDL Cholesterol VLDL Cholesterol HDL Cholesterol Discharge Activity: Return to Normal Activity Weight Bearing Status: Full weight bearing Home Medications: Medications to take at Discharge Acetaminophen [Tylenol Tablet] 325 - 650 mg PO Q6H PRN PRN #0 tab 03/02/16 Aspirin [Aspirin, Baby] 81 mg PO DAILY 10/13/17 Nitroglycerin 0.4 mg SL PRN PRN #30 tab.subl 10/14/17 atorvastatin 80 mg tablet 80 mg PO DAILY #90 tab 03/27/18 clopidogrel 75 mg tablet 75 mg PO DAILY #90 tab 03/27/18 lisinopril 20 mg tablet 20 mg PO BID #180 tab 07/18/18 Primary Care Physician: Kodi Ortiz MD [Primary Care Provider] - Please follow up with your Primary Care Physician in: next week Disposition: Home Minutes spent on discharge:: 30 Patient Condition:: Stable Medical Necessity - Tobacco Use Smoking Status: Former smoker Meaningful Use Info Meaningful Use Diagnoses (Choose all that apply): None applicable Code Visit OBSV E&M: 44952 Observation care discharge
== END 2018-07-26 11:38 | disposition home or self-care (01) ==
LOC: ED 21:30 → PCU 07-26 00:12
PROVIDERS: Admitting Provider Hospitalist; Emergency Provider Emergency Medicine; Family Provider Family Medicine; PCP Family Medicine; Referring Provider Hospitalist; Visit Provider Internal Medicine
DX: R07.89 Other chest pain (principal); R20.0 Anesthesia of skin; R42 Dizziness and giddiness; I25.10 Atherosclerotic heart disease of native coronary artery without angina pectoris; I10 Essential (primary) hypertension; E11.9 Type 2 diabetes mellitus without complications; E78.5 Hyperlipidemia, unspecified; I25.2 Old myocardial infarction; R11.0 Nausea; R29.701 NIHSS score 1; Z79.899 Other long term (current) drug therapy; Z79.82 Long term (current) use of aspirin; Z79.02 Long term (current) use of antithrombotics/antiplatelets; Z95.5 Presence of coronary angioplasty implant and graft; Z87.891 Personal history of nicotine dependence
CPT/HCPCS: 36415; 70450; 70544; 70549; 70551; 71275; 78452; 80048; 80061; 83036; 84484; 85025; 85610; 85730; 93005; 93017; 99285; A9500; A9575; A4216; J2785

== ENCOUNTER → 2018-12-04 10:13 | Outpatient (CLI) | payer OTHER, MEDICARE, SELFPAY ==
[2016-03-01 15:34] VITALS: BMI 34.5
[2018-08-30 13:58] VITALS: BMI 34.2
[2018-12-04 12:30] LABS: Anion Gap 7 (5-15); BUN 25 mg/dL (7-18); BUN/Creat Ratio 23.6 RATIO (10-20); Calcium,Total 9.2 mg/dL (8.5-10.1); Chloride 108 mmol/L (98-107); Cholesterol 124 mg/dL (200); Creatinine, Serum 1.06 mg/dL (0.70-1.30); EST Glomerular Filtration Rate 72 mL/min (>60); Est Glom Filt Rate - Afr Amer 87 mL/min (>60); Glucose 114 mg/dL (74-106); High Density Lipoprotein 28 mg/dL; Potassium 4.1 mmol/L (3.5-5.1); Sodium Level 139 mmol/L (136-145); Triglycerides 184 mg/dL; Very Low Density Lipoprotein 37 mg/dL (5-40)
[2018-12-04 12:34] LABS: Hemoglobin A1c 6.4 % (4.2-6.3)
== END ==
PROVIDERS: Family Provider Family Medicine; PCP Family Medicine; Visit Provider Family Medicine
DX: E11.69 Type 2 diabetes mellitus with other specified complication (principal); E78.00 Pure hypercholesterolemia, unspecified; I10 Essential (primary) hypertension
CPT/HCPCS: 36415; 80048; 80061; 83036

== ENCOUNTER 2019-01-28 16:56 | Observation (INO) | payer OTHER, SELFPAY ==
[2016-03-01 15:34] VITALS: BMI 34.5
[2018-08-30 13:58] VITALS: BMI 34.2
[2019-01-28] VITALS (9 sets, daily range): BP systolic 126–170; BP diastolic 76–97; PULSE 52–71; RESP 10–18; TEMP 36.1–36.6; O2SAT 94–99; BMI 32.1; BMI 33.1
--- NOTE | 2019-01-28 18:10 | EKG12_ITS ---
Test Reason : CP Blood Pressure : / mmHG Vent. Rate : 056 BPM Atrial Rate : 056 BPM P-R Int : 186 ms QRS Dur : 096 ms QT Int : 404 ms P-R-T Axes : 055 027 048 degrees QTc Int : 389 ms Sinus bradycardia Otherwise normal ECG Confirmed by GIANNI LOZANO, CANDACE ([id number]), acquisition editor ALEENA SUERO ([id number] on 01/30/2019 11:45:47 AM Referred By: DOMINIQUE/DMITRI Confirmed By:CANDACE ARCHER MD
--- NOTE | 2019-01-28 18:10 | RAD_ITS ---
STUDY: X-RAY CHEST REASON FOR EXAM: Male, 78 years old. Dizziness and shortness of breath TECHNIQUE: Single AP portable view of the chest. COMPARISON: None. FINDINGS: There is hyperinflation of the lungs consistent with chronic obstructive lung disease (COPD). Lungs are clear. There is no demonstrated pleural abnormality. Normal size heart. Normal mediastinum and grupo. Normal visualized pulmonary arteries. Normal visualized aortic arch and descending thoracic aorta. Normal visualized thoracic spine. Normal visualized ribs, clavicles, and shoulders. There is no demonstrated abnormality of the visualized soft tissue structures of the upper abdomen. RAD/Chest 1 View (Portable) IMPRESSION: COPD without acute findings. Electronically Signed: Gregorio Gaona DO at 19:08 EST Tel , Service support ,
--- NOTE | 2019-01-28 18:11 | ED.DCSUM_ITS ---
History of Present Illness Chief Complaint: Dizziness Informant: Patient, Spouse/S.O. Onset: Today - around 3 hrs ago Activity at onset: Light Activity - hammering on the roof of his home Timing: Continuous Quality: - - squeezing Location: Left Chest Current Severity: Gone Maximum Severity: Mild Worsened By: Nothing Relieved By: NTG - x1 Associated Symptoms: Nausea, Diaphoresis, Dyspnea, Lightheadedness - near- syncopaol. Negative for: Vomiting, Cough, Fever, Acid Reflux, Palpitations Narrative: Patient started feeling very poorly, lightheadedness and near syncope was really his chief complaint, he went inside and was feeling sweaty and nauseated and developed squeezing chest discomfort which was more of an after thought to him, but that prompted him to take a nitroglycerin which seemed to be associated with him gradually feeling a lot better afterwards. He feels a little nauseated now but otherwise the symptoms are gone. He did eat a piece of chocolate and then check his blood sugar, it was 170. He is prediabetic. He had 2 stents placed in 2016 here at this hospital. He denies any pleuritic discomfort today. states that he has been getting this squeezing in the left side of his chest from time to time, but the patient states he has never had any symptoms like this with it. - Past Medical History (1) Vertigo Status: Resolved (2) Atherosclerotic heart disease of [place] coronary artery without angina pectoris Status: Chronic (3) Diabetes mellitus type 2 in obese Status: Chronic (4) Essential hypertension Status: Chronic (5) LVH (left ventricular hypertrophy) Status: Chronic (6) Left atrial enlargement Status: Chronic (7) PAC (premature atrial contraction) Status: Chronic (8) PVC (premature ventricular contraction) Status: Chronic (9) Pure hypercholesterolemia Status: Chronic (10) Sleep-disordered breathing Status: Chronic (11) Anxiety and depression Status: Suspected Past Medical History - Allergies and Home Meds Allergies/Adverse Reactions: Allergies gabapentin Allergy (Verified 01/28/19 16:59) Anaphylaxis Primary Care Physician: Kodi Cole MD [Primary Care Provider] - Doctors: Dr. Cha cardiology Surgical History: - - PCI ?2, tonsillectomy. Lives: Spouse/ Significant Other Smoking Status: Never smoker - Family History Maternal Family History: Family History (Last Reviewed 08/30/18 @ 13:59 by Lorena Riddle) Mother Diabetes Cancer Father CVA (cerebral vascular accident) Family History: Reports: - - Patient denies any maternal or paternal family history including diabetes, heart disease, cancer. Paternal Family History: Family History (Last Reviewed 08/30/18 @ 13:59 by Lornea Riddle) Mother Diabetes Cancer Father CVA (cerebral vascular accident) Family History: Reports: - - Patient denies any maternal or paternal family history including diabetes, heart disease, cancer. Review of Systems General: Reports: Malaise, Sweats. Denies: Chills, Fever Eyes: Denies: Visual changes - bilaterally, Diplopia ENT: Denies: Rhinorrhea, Sore throat Cardiovascular: Reports: Chest pain. Denies: Palpitations, Heart racing Respiratory: Reports: Dyspnea. Denies: Cough, Dyspnea on exertion Gastrointestinal: Reports: Nausea. Denies: Abdominal pain, Vomiting, Diarrhea, Melena, Hematochezia Genitourinary: Denies: Dysuria, Hematuria, Frequency Musculoskeletal: Denies: Back pain, Swelling, Extremity Pain Skin: Denies: Rash, Wounds Neurological: Denies: Headache, Weakness, Numbness Physical Exam Vital Signs/Narrative: Vital Signs Temp Pulse Resp BP Pulse Ox 01/28/19 18:02 63 14 126/76 H 98 01/28/19 16:57 96.9 F L 71 16 170/97 H 99 Inital Vital Signs reviewed: Yes General: Well nourished, Well developed, No Acute Distress Head: Normocephalic, Atraumatic Eyes: Perrl, EOMI ENT: Moist mucous membranes, No rhinorrhea Neck: Supple, Nontender, No JVD Cardiovascular: Regular rate, Regular rhythm, No murmurs, Normal S1, Normal S2. Negative for: Tachycardia, Bradycardia Respiratory: No distress, CTA bilaterally, Chest nontender Abdomen: Soft, Nontender, Nondistended, Normal bowel sounds. Negative for: Pulsatile mass Back: Nontender, Normal Inspection Extremities: Nontender, No edema. Negative for: Calf Tenderness Skin: Normal color, No rash, No Trauma Neurological: Alert, Oriented x3, Cranial nerves II-XII grossly intact, Normal Strength, Normal Sensation Psychological: Normal affect, Normal Mood Diagnostic/Tx/Re-eval Impressions Chest X-Ray 01/28/19 18:10 IMPRESSION: COPD without acute findings. Electronically Signed: Gregorio Gaona DO at 19:08 EST Tel , Service support , 01/28/19 18:10 Chest 1 View (Portable) [RAD] Stat Laboratory Results 01/28/19 01/28/19 01/28/19 17:13 17:13 17:13 WBC 12.4 H RBC 5.48 Hgb 15.9 Hct 48.5 MCV 88.5 MCH 29.0 MCHC 32.8 RDW Std Deviation 42.8 RDW Coeff of Vane 13.2 Plt Count 255 MPV 9.9 Immature Gran % (Auto) 0.500 Neut % (Auto) 80.0 H Lymph % (Auto) 12.4 L [place] % (Auto) 6.1 Eos % (Auto) 0.8 Baso % (Auto) 0.2 Absolute Neuts (auto) 9.9 H Absolute Lymphs (auto) 1.54 Nucleated RBC % 0 APTT 25.4 Sodium 140 Potassium 4.0 Chloride 106 Carbon Dioxide 27.0 Anion Gap 7 BUN 22 H Creatinine 1.07 Estim Creat Clear Calc 68.29 Est GFR (MDRD) Af Amer 86 Est GFR (MDRD) Non-Af 71 BUN/Creatinine Ratio 20.6 H Glucose 101 Calcium 9.7 Troponin I < 0.015 Treatment: Aspirin, NTG Topical Repeat Eval: Pain Free DANIEL Risk: Age >/= 65, >/= 3RF, H/O CAD, ASA within 7 days Score: 4 - Medical Decision Making Patient symptoms very concerning. They are resolved after nitroglycerin, and took a nitroglycerin to make them go away despite resting. I think admitting him to rule out acute coronary syndrome is indicated given his risk. He is comfortable with this plan and remains pain-free in the emergency department. His EKG was normal while he was pain-free. ED Disposition - Plan for ED Patient: Disposition: Acute Care Hospital [facility] Diagnosis: Chest pain, unspecified Referrals: Kodi Cole MD [Primary Care Provider] -
[2019-01-28] MEDS: Nitroglycerin Oint 1 INCH PACKET 0.5 INCH TRANSDERM. (18:16)
[2019-01-28] MEDS: Aspirin 81 MG TAB.CHEW 324 MG PO (18:16)
[2019-01-28] MEDS: 0.9% Normal Saline 1,000 ML 150 ML IV (18:24)
[2019-01-28 18:30] LABS: Absolute Lymphocyte Count 1.54 X10^3/uL (0.83-4.51); Absolute Neutrophil Count 9.9 X10^3/uL (2.0-7.7); Basophil# 0.03 X10^3/uL; Basophil% 0.2 % (0-1); Eosinophils% 0.8 % (0-5); Hematocrit 48.5 % (40-54); Hemoglobin 15.9 g/dL (13.0-16.5); Lymphocyte # 1.54 X10^3/ul (4.0); Lymphocyte % 12.4 % (19-41); Mean Corp Hgb Conc 32.8 g/dL (32-36); Mean Corpuscular Volume 88.5 fL (80-94); Mean Platelet Vol. 9.9 fl (6.2-12.0); Monocyte# 0.75 X10^3/uL; Monocyte% 6.1 % (0-10); NRBC Flagged by Analyzer 0 % (0-5); Neutrophil # 9.89 X10^3/uL (2.7-7.7); Platelet Count 255 K/mm3 (150-450); RBC Distribution Width CV 13.2 % (11.6-14.6); RBC Distribution Width SD 42.8 fl (35.1-43.9); Red Blood Count 5.48 M/mm3 (4.6-6.2); White Blood Count 12.4 K/mm3 (4.4-11.0)
[2019-01-28 18:42] LABS: Anion Gap 7 (5-15); BUN 22 mg/dL (7-18); BUN/Creat Ratio 20.6 RATIO (10-20); Calcium,Total 9.7 mg/dL (8.5-10.1); Chloride 106 mmol/L (98-107); Creatinine, Serum 1.07 mg/dL (0.70-1.30); EST Glomerular Filtration Rate 71 mL/min (>60); Est Glom Filt Rate - Afr Amer 86 mL/min (>60); Estimated Creatinine Clearance 68.29 ml/min; Glucose 101 mg/dL (74-106); Sodium Level 140 mmol/L (136-145)
[2019-01-28 18:51] LABS: Partial Thromboplast Time 25.4 Seconds (24.1-36.2)
--- NOTE | 2019-01-28 21:08 | HP.PCM_ITS ---
Problem List (1) Chest pain Status: Acute Qualifiers: Chest pain type: unspecified Qualified Code(s): R07.9 - Chest pain, unspecified History of Present Illness Date of Admission: 01/28/19 Chief Complaint: shortness of breath. diaphoresis The patient is a 78 year old M has a history of coronary artery disease with stents placed 2 years ago. Was doing some work today and going up and down a la dder roughly 10 times per day, was doing some work on the roof and where he just felt off, felt dizzy, diaphoretic, shortness of breath. Went down the ladder and then went and went to his house and laid on the floor. Patient took some nitroglycerin and then about 5 minutes later started feeling better. Afterwards, started having some left-sided chest pain that did resolve. Patient stated this occurred around 4 PM. Last ate around 11 AM. Patient has had a coronary issues before but his symptoms at that time were different where he was having left-sided jaw pain which she did not experience today. [] Past Medical History Past Medical History (Chronic Problems): Chronic Problems (Last Reviewed 08/30/18 @ 13:59 by Lorena Riddle) Pure hypercholesterolemia (Chronic) Essential hypertension (Chronic) Atherosclerotic heart disease of [place] coronary artery without angina pectoris (Chronic) Nicotine addiction (Chronic) Sleep-disordered breathing (Chronic) Left atrial enlargement (Chronic) LVH (left ventricular hypertrophy) (Chronic) Diabetes mellitus type 2 in obese (Chronic) PAC (premature atrial contraction) (Chronic) PVC (premature ventricular contraction) (Chronic) Medical History: Medical History (Last Reviewed 01/28/19 @ 21:09 by Adam Disla DO) Pure hypercholesterolemia (Chronic) E78.00 Presence of stent in coronary artery (Resolved) Onset Date: ~03/01/16 Z95.5 PTCA/MADAY to mid LAD and Distal Lt CX 03/01/16 Essential hypertension (Chronic) I10 Atherosclerotic heart disease of [place] coronary artery without angina pectoris (Chronic) I25.10 Vertigo (Resolved) R42 Bradycardia (Acute) R00.1 Palpitations (Inactive) R00.2 Chest discomfort (Acute) R07.89 Unstable angina (Inactive) I20.0 Nicotine addiction (Chronic) F17.200 Sleep-disordered breathing (Chronic) G47.30 Left atrial enlargement (Chronic) I51.7 LVH (left ventricular hypertrophy) (Chronic) I51.7 Diabetes mellitus type 2 in obese (Chronic) E11.9, E66.9 Unstable angina pectoris (Inactive) NSTEMI (non-ST elevated myocardial infarction) (Resolved) I21.4 PAC (premature atrial contraction) (Chronic) I49.1 PVC (premature ventricular contraction) (Chronic) I49.3 CAD (coronary artery disease) (Inactive) I25.10 HTN (hypertension) (Inactive) I10 Hyperlipidemia (Inactive) E78.5 Allergies gabapentin Allergy (Verified 01/28/19 16:59) Anaphylaxis Home Medications: Ambulatory Orders Medication Instructions Recorded Acetaminophen [Tylenol Tablet] 325 - 650 mg PO Q6H PRN PRN #0 tab 03/02/16 Aspirin [Aspirin, Baby] 81 mg PO DAILY 10/13/17 Nitroglycerin 0.4 mg SL PRN PRN #30 tab.subl 10/14/17 clopidogrel 75 mg tablet 75 mg PO DAILY #90 tab 03/27/18 lisinopril 20 mg tablet 20 mg PO BID #180 tab 07/18/18 isosorbide mononitrate ER 30 mg 30 mg PO DAILY #30 tab 08/02/18 tablet,extended release 24 hr Atorvastatin Calcium [Lipitor] 80 mg PO QHS 01/28/19 Surgical History: Surgical History (Last Reviewed 01/28/19 @ 21:09 by Adam Disla DO) History of tonsillectomy Z90.89 Presence of coronary angioplasty implant and graft Onset Date: ~03/01/16 Z95.5 PTCA/MADAY to mid LAD and Distal Lt CX 03/01/16 Post PTCA (Inactive) Onset Date: ~2015 Z98.61 LAD and circumflex Surgical History: - - PCI ?2, tonsillectomy. back surgery Psychiatric History: No pertinent psych hx Lives: Spouse/ Significant Other Smoking Status: Never smoker - *Family History Maternal Family History: Family History (Last Reviewed 01/28/19 @ 21:10 by Adam Disla DO) Mother Diabetes Cancer Father CVA (cerebral vascular accident) History Items: - - Patient denies any maternal or paternal family history including diabetes, heart disease, cancer. Paternal Family History: Family History (Last Reviewed 01/28/19 @ 21:10 by Adam Disla DO) Mother Diabetes Cancer Father CVA (cerebral vascular accident) History Items: - - Patient denies any maternal or paternal family history including diabetes, heart disease, cancer. Review of Systems Constitutional: Reports: Weakness. Denies: Anorexia, Chills, Fever Eyes: Denies: Blurred vision, Double vision HEENT: Denies: Head Aches, Sinus Congestion, Sinus Drainage Cardiovascular: Reports: Chest Pain. Denies: Edema Respiratory: Reports: Shortness of Breath. Denies: Cough Gastrointestinal: Denies: Abdominal Pain, Nausea, Vomiting Genitourinary: Denies: Dysuria Musculoskeletal: Denies: Joint Pain, Joint Tenderness Skin: Denies: Rash, Wounds Neurological: Denies: Numbness, Tingling, Focal weakness Psychiatric: Denies: Anxiety, Depression Endocrine: Denies: Change in Body Habitus, Heat/ Cold Intolerance Hematologic/ Lymphatic: Denies: Easy Bruising, Easy Bleeding, Hx of blood clot Comment: All review systems are otherwise negative except for as mentioned above and in HPI. VTE Information - Inpt Only VTE Present on Admission: No VTE Mechan Device Prophylaxis: None VTE Pharm Prophylaxis ordered?: No Reason prophylaxis not ordered:: Procedure Not Indicated Patient Problems: Active and Suspected Problems (Last Reviewed 08/30/18 @ 13:59 by Lorena Riddle) Chest pain (Acute) Chest pain (Acute) - Physical Exam Vitals/I&O's: Vital Signs Temp Pulse Resp BP Pulse Ox 36.1 C L 52 L 12 135/76 H 98 01/28/19 16:57 01/28/19 19:00 01/28/19 19:00 01/28/19 19:00 01/28/19 19:00 Oxygen Delivery Method Room Air Weight: 113.398 kg Body Mass Index (BMI) 32.1 General: Alert, Cooperative, No apparent distress HEENT: Atraumatic, Normocephalic Oral: Moist Mucosa, No Gingival or Mucosal Lesions/ Ulcerations Neck: No Nodes, Trachea Midline Lungs: Clear to auscultation, Normal air movement, No rhonchi, No wheeze, No rales Cardiovascular: Regular rate, Regular Rhythm, Normal S1, Normal S2, No murmurs Abdomen: Bowel Sounds Present, Soft, Non Tender, Non-Distended, No Hepato- splenomegaly Extremities: No edema, No Calf Tenderness Skin: No rashes, No breakdown Musculoskeletal: No Tenderness to Palpation of Joints or Extremities, No Muscle Wasting Neurological: Deep Tendon Reflexes 2+/4 and Symmetrical, Muscle tone normal Psych/Mental Status: Normal Affect, Appropriate Laboratory Results 01/28/19 17:13: WBC 12.4 H, RBC 5.48, Hgb 15.9, Hct 48.5, MCV 88.5, MCH 29.0, MCHC 32.8, RDW Std Deviation 42.8, RDW Coeff of Vane 13.2, Plt Count 255, MPV 9.9, Immature Gran % (Auto) 0.500, Neut % (Auto) 80.0 H, Lymph % (Auto) 12.4 L, [place] % (Auto) 6.1, Eos % (Auto) 0.8, Baso % (Auto) 0.2, Absolute Neuts (auto) 9.9 H, Absolute Lymphs (auto) 1.54, Nucleated RBC % 0 01/28/19 17:13: APTT 25.4 01/28/19 17:13: Sodium 140, Potassium 4.0, Chloride 106, Carbon Dioxide 27.0, Anion Gap 7, BUN 22 H, Creatinine 1.07, Estim Creat Clear Calc 68.29, Est GFR (MDRD) Af Amer 86, Est GFR (MDRD) Non-Af 71, BUN/Creatinine Ratio 20.6 H, Glucose 101, Calcium 9.7, Troponin I < 0.015 EKG reviewed and showed normal sinus rhythm without any acute changes. Chest x-ray reviewed and showed normal airways, no infiltrate nor any pulmonary edema. Current Medications Sodium Chloride () 1,000 mls @ 150 mls/hr IV .[id number] [facility] Last Admin: 01/28/19 18:24 Dose: 150 mls/hr Documented by: Assessment/Plan All Active Problems (Last Reviewed 08/30/18 @ 13:59 by Lorena Riddle) Chest pain (Acute) Chest pain (Acute) Presence of stent in coronary artery (Resolved ~03/01/16) Vertigo (Resolved) Bradycardia (Acute) Chest discomfort (Acute) NSTEMI (non-ST elevated myocardial infarction) (Resolved) 1. Suspected chest pain variant * Does began with diaphoresis, weakness and shortness of breath followed by left-sided chest pain * Patient is high risk given his prior history of stents placed about 3 years ago * Kyung score of 109, DANIEL score of 5 * Discussed with patient about this being possible cardiac equivalent given his symptomatology and history. 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 The neuropathy may be due to his previous back history which was recently fixed but still has issues with neuropathy. He feels that he may not be able to do treadmill safely and I would prefer to undergo the chemical stress test. Patient had a nuclear stress test performed in July and we will just do a chemical nuclear stress test on the . * Cycle troponins * Discussed with the patient that his stress test is normal and the plan will be for him to be discharged. If that the case then the symptoms may be attributable to him doing more work than what he typically does and having it been several hours since he had eaten may have caused him to have a near syncopal/vagal event * If stress test is abnormal or if troponins do become elevated, then will consult cardiology. * Patient does have a follow-up appointment with Dr. Cha on the . 2. CAD * Continue with aspirin, clopidogrel, isosorbide mononitrate, lisinopril, atorvastatin 3. Hypertension * Fair control at this time. Continue with lisinopril 4. VTE prophylaxis: Low risk as patient is observation status and therefore not indicated 5. Advanced care planning: Verified with the patient, he wishes to be full CODE STATUS at this time. Code Visit OBSV E&M: 64607 Initial observation care L3
[2019-01-28] MEDS: Atorvastatin Calcium 80 MG Tablet PO (23:29)
[2019-01-29] VITALS (7 sets, daily range): BP systolic 138–141; BP diastolic 71–84; PULSE 52–65; RESP 14–18; TEMP 36.4–36.6; O2SAT 96–99
--- NOTE | 2019-01-29 04:29 | EKG12_ITS ---
Test Reason : MORNING EKG Blood Pressure : / mmHG Vent. Rate : 054 BPM Atrial Rate : 054 BPM P-R Int : 200 ms QRS Dur : 100 ms QT Int : 432 ms P-R-T Axes : 050 038 039 degrees QTc Int : 409 ms Sinus bradycardia Otherwise normal ECG When compared with ECG of 28-JAN-2019 22:36, MANUAL COMPARISON REQUIRED, DATA IS UNCONFIRMED Confirmed by DELON MAE ([id number]), rewrite editor MAKENZIE THOMASON ([id number]) on 02/06/2019 10:17:34 AM Referred By: YENI Confirmed By:DELON MAE
[2019-01-29] MEDS: Aspirin 81 MG TAB.CHEW PO (05:33)
[2019-01-29] MEDS: Lisinopril 20 MG Tablet PO (05:33)
[2019-01-29] MEDS: Clopidogrel Bisulfate 75 MG Tablet PO (05:33)
--- NOTE | 2019-01-29 05:55 | EKG12_ITS ---
Test Reason : CP ADMISSION Blood Pressure : / mmHG Vent. Rate : 057 BPM Atrial Rate : 057 BPM P-R Int : 194 ms QRS Dur : 094 ms QT Int : 430 ms P-R-T Axes : 050 016 030 degrees QTc Int : 418 ms Sinus bradycardia Otherwise normal ECG When compared with ECG of 28-JAN-2019 17:06, MANUAL COMPARISON REQUIRED, DATA IS UNCONFIRMED Confirmed by DELON MAE ([id number]), film or videotape editor MAKENZIE THOMASON ([id number]) on 02/06/2019 10:16:49 AM Referred By: YENI Confirmed By:DELON MAE
[2019-01-29] MEDS: 0.9% Saline Lock 10 ML Syringe IV (07:43)
[2019-01-29] MEDS: Isosorbide Mononitrate 30 MG Tablet PO (12:12)
--- NOTE | 2019-01-29 14:20 | DCINST_ITS ---
- Discharge Diagnoses Current Active Problems: Current Active and Chronic Problems (Last Reviewed 01/28/19 @ 21:09 by Adam Disla DO) Chest pain (Acute) Chest pain (Acute) You will use the following diet at home:: Cardiac Your food should be the consistency of: Regular Your liquids should be the consistency of: Regular/Thin Discharge Activity: Return to Normal Activity Additional Instructions: Talk to your primary care physician regarding pulmonary function testing and a sleep study. Allergies/Adverse Reactions: Allergies gabapentin Allergy (Verified 01/28/19 16:59) Anaphylaxis Medications to take at Discharge Acetaminophen [Tylenol Tablet] 325 - 650 mg PO Q6H PRN PRN #0 tab 03/02/16 Aspirin [Aspirin, Baby] 81 mg PO DAILY 10/13/17 Nitroglycerin 0.4 mg SL PRN PRN #30 tab.subl 10/14/17 clopidogrel 75 mg tablet 75 mg PO DAILY #90 tab 03/27/18 lisinopril 20 mg tablet 20 mg PO BID #180 tab 07/18/18 isosorbide mononitrate ER 30 mg tablet,extended release 24 hr 30 mg PO DAILY #30 tab 08/02/18 Atorvastatin Calcium [Lipitor] 80 mg PO QHS 01/28/19 Pantoprazole Sodium [Protonix] 40 mg PO DAILY 01/28/19 Pantoprazole Sodium [Protonix] 40 mg PO DAILY 01/28/19 Primary Care Physician: Kodi Cole MD [Primary Care Provider] - Please follow up with your Primary Care Physician in: 1-2 weeks Test Results: Test results from this visit will be discussed in further detail at your follow- up appointment, if applicable. Please Follow Up With: James Cha MD When: as directed Proposed Discharge Date: 01/29/19
--- NOTE | 2019-01-29 14:22 | DS.PCM_ITS ---
<Pepe Doan - Last Filed: 01/29/19 14:22> Discharge Date and Diagnosis - Problem List Patient Problems: Active and Suspected Problems (Last Reviewed 01/28/19 @ 21:09 by Adam Disla DO) Chest pain (Acute) Chest pain (Acute) Date of Admission: 01/28/19 Date of Discharge: 01/29/19 - Primary Discharge Diagnosis Active and Suspected Problems (Last Reviewed 01/28/19 @ 21:09 by Adam Disla DO) SOB/Diaphoresis, cardiac etiology ruled out Hx CAD, 2 prior stents HTN Hx Nicotine abuse HTN/HLD Obesity Suspected JESSE Concern for COPD - Secondary Discharge Diagnosis Chronic Problems (Last Reviewed 01/28/19 @ 21:09 by Adam Disla DO) Pure hypercholesterolemia (Chronic) Essential hypertension (Chronic) Atherosclerotic heart disease of [place] coronary artery without angina pectoris (Chronic) Nicotine addiction (Chronic) Sleep-disordered breathing (Chronic) Left atrial enlargement (Chronic) LVH (left ventricular hypertrophy) (Chronic) Diabetes mellitus type 2 in obese (Chronic) PAC (premature atrial contraction) (Chronic) PVC (premature ventricular contraction) (Chronic) Hospital Course and Treatment Imaging Results: 01/29/19 05:55 Nuclear Stress Test - Chemical [NM] AM (NON MEDS) Negative RAD/Chest 1 View (Portable) IMPRESSION: COPD without acute findings. Operations: None Procedures: None Summary of Care Provided: Hospital course: The patient is a 78 year old M with past medical history of CAD with 2 prior stents, history of nicotine abuse, history of hypertension, hyperlipidemia, obesity, who presented to the emergency room with complaints of dyspnea and diaphoresis while climbing a ladder multiple times per day. He took nitro and laid on the floor and did have resolution of his shortness of breath. He came to the emergency room and had chest x-ray demonstrating possible COPD, negative EKG, negative troponin. He was admitted to the PCU on telemetry with concerns for angina. Troponin was repeated x4 and was negative, he had no events on telemetry, and he underwent a stress test the following day which was negative. He had no further shortness of breath or diaphoresis after admission. His shortness of breath and diaphoresis was attributed to just overexertion as he was climbing steps multiple times, but it is also concerning that his chest x- ray showed possible COPD with his extensive smoking history. I recommended he talk to his primary care physician about having pulmonary function testing done. Also his expressed concern about his breathing at night-he stops breathing and snores, and has been told multiple times in the past that he needs sleep studies. I recommended he talk to his primary care physician about pursuing a sleep study for suspected sleep apnea. Patient was discharged home in stable condition will need follow-up with his PCP in 1 to 2 weeks, and he has an appointment with cardiology on 01/31/2019 that he should keep. This patient was seen by Pepe Doan PA-C under the supervision of Doctor Rodriguez. [] Patient Problems: Active and Suspected Problems (Last Reviewed 01/28/19 @ 21:09 by Adam Disla DO) Chest pain (Acute) Chest pain (Acute) - Physical Exam Vitals/I&O's: Vital Signs Temp Pulse Resp BP Pulse Ox 97.6 F L 58 L 14 140/84 H 97 01/29/19 08:13 01/29/19 08:13 01/29/19 08:13 01/29/19 08:13 01/29/19 08:13 Oxygen Delivery Method Room Air Weight: 251 lb 1.704 oz Body Mass Index (BMI) 33.1 Intake and Output for Last 24 Hours 01/27/19 01/28/19 01/29/19 23:59 23:59 23:59 Intake Total 1292.5 / 1292.5 Balance 1292.5 / 1292.5 General: Alert, Oriented x3, Cooperative HEENT: Atraumatic, PERRLA, EOMI, Normocephalic Neck: Supple, No JVD, Negative Carotid Bruits Lungs: Clear to auscultation, Normal air movement Cardiovascular: Regular rate, No murmurs Abdomen: Bowel Sounds Present, Soft, Non Tender Extremities: No edema, Capillary Refill Less than 3 Seconds Skin: No rashes, No breakdown Musculoskeletal: No Tenderness to Palpation of Joints or Extremities Neurological: Cranial nerves II-XII grossly intact Psych/Mental Status: Normal Affect, Appropriate, Alert and oriented to time, place, person, mood and affect Laboratory Results 01/28/19 17:13: WBC 12.4 H, RBC 5.48, Hgb 15.9, Hct 48.5, MCV 88.5, MCH 29.0, MCHC 32.8, RDW Std Deviation 42.8, RDW Coeff of Vane 13.2, Plt Count 255, MPV 9.9, Immature Gran % (Auto) 0.500, Neut % (Auto) 80.0 H, Lymph % (Auto) 12.4 L, [place] % (Auto) 6.1, Eos % (Auto) 0.8, Baso % (Auto) 0.2, Absolute Neuts (auto) 9.9 H, Absolute Lymphs (auto) 1.54, Nucleated RBC % 0 01/28/19 17:13: APTT 25.4 01/28/19 17:13: Sodium 140, Potassium 4.0, Chloride 106, Carbon Dioxide 27.0, Anion Gap 7, BUN 22 H, Creatinine 1.07, Estim Creat Clear Calc 68.29, Est GFR (MDRD) Af Amer 86, Est GFR (MDRD) Non-Af 71, BUN/Creatinine Ratio 20.6 H, Glucose 101, Calcium 9.7, Troponin I < 0.015 01/28/19 22:33: Troponin I < 0.015 01/29/19 01:15: Troponin I < 0.015 01/29/19 04:44: Troponin I < 0.015 Current Medications Acetaminophen (Tylenol) 650 mg PO Q6H PRN PRN PRN Reason: Pain Score 1-10/10 Aspirin [facility], [facility]) [facility] Last Admin: 01/29/19 05:33 Dose: 81 mg Documented by: Atorvastatin Calcium (Lipitor) 80 mg PO QHS [facility] Last Admin: 01/28/19 23:29 Dose: 80 mg Documented by: Clopidogrel Bisulfate (Plavix) 75 mg PO DAILY [facility] Last Admin: 01/29/19 05:33 Dose: 75 mg Documented by: Dextrose (D50w Syringe) 0 gm IV X1 PRN; Protocol PRN Reason: Hypoglycemia Glucagon () 1 mg IM .X1 PRN PRN Reason: Hypoglycemia Isosorbide Mononitrate (Imdur) 30 mg PO DAILY [facility] Last Admin: 01/29/19 12:12 Dose: 30 mg Documented by: Lisinopril (Zestril) 20 mg PO BID [facility] Last Admin: 01/29/19 05:33 Dose: 20 mg Documented by: Melatonin (Melatonin) 3 mg PO QHS PRN PRN PRN Reason: INSOMNIA Nitroglycerin (Nitrostat) 0.4 mg SUBLINGUAL Q5M PRN PRN Reason: chest pain Ondansetron HCl (Zofran) 4 mg IV Q8H PRN PRN PRN Reason: NAUSEA/VOMITING Sodium Chloride () 10 - 40 ml IV UD PRN PRN Reason: SALINE FLUSH Last Admin: 01/29/19 07:43 Dose: 10 ml Documented by: Discharge Diet: Low fat/ Low Cholesterol, 2000 mg Sodium Diet Discharge Activity: Return to Normal Activity Home Medications: Medications to take at Discharge Acetaminophen [Tylenol Tablet] 325 - 650 mg PO Q6H PRN PRN #0 tab 03/02/16 Aspirin [Aspirin, Baby] 81 mg PO DAILY 10/13/17 Nitroglycerin 0.4 mg SL PRN PRN #30 tab.subl 10/14/17 clopidogrel 75 mg tablet 75 mg PO DAILY #90 tab 03/27/18 lisinopril 20 mg tablet 20 mg PO BID #180 tab 07/18/18 isosorbide mononitrate ER 30 mg tablet,extended release 24 hr 30 mg PO DAILY #30 tab 08/02/18 Atorvastatin Calcium [Lipitor] 80 mg PO QHS 01/28/19 Pantoprazole Sodium [Protonix] 40 mg PO DAILY 01/28/19 Pantoprazole Sodium [Protonix] 40 mg PO DAILY 01/28/19 Primary Care Physician: Kodi Cole MD [Primary Care Provider] - Please follow up with your Primary Care Physician in: 1-2 weeks Please Follow Up With: James Cha MD When: as directed Medical Necessity - Tobacco Use Smoking Status: Former smoker Tobacco Use: Cigarettes Meaningful Use Info Meaningful Use Diagnoses (Choose all that apply): None applicable <Paul Rodriguez - Last Filed: 01/29/19 14:45> Discharge Date and Diagnosis - Primary Discharge Diagnosis Active and Suspected Problems (Last Reviewed 01/28/19 @ 21:09 by Adam Disla DO) Chest pain (Acute) Chest pain (Acute) - Secondary Discharge Diagnosis Chronic Problems (Last Reviewed 01/28/19 @ 21:09 by Adam Disla DO) Pure hypercholesterolemia (Chronic) Essential hypertension (Chronic) Atherosclerotic heart disease of [place] coronary artery without angina pectoris (Chronic) Nicotine addiction (Chronic) Sleep-disordered breathing (Chronic) Left atrial enlargement (Chronic) LVH (left ventricular hypertrophy) (Chronic) Diabetes mellitus type 2 in obese (Chronic) PAC (premature atrial contraction) (Chronic) PVC (premature ventricular contraction) (Chronic) Hospital Course and Treatment Imaging Results: 01/29/19 05:55 Nuclear Stress Test - Chemical [NM] AM (NON MEDS) Summary of Care Provided: This patient was seen in conjunction with Pepe Doan PA-C . I have independently interviewed and examined the patient and reviewed pertinent historical, laboratory, and other data. Please refer to Pepe Doan PA-C note for details of this patient's presentation, findings, and recommendations. I have reviewed Pepe Doan PA-C note and concur with documented findings. In brief, patient is a 8-year-old gentleman with past medical history significant CAD with previous stent placement admitted with chest pain. Patient was placed on a monitored bed CO was ruled out with serial cardiac enzymes as well underwent a nuclear stress test which is negative for stress-induced ischemia. Patient was discharged home instructed to follow-up with his primary radiologist has an appointment coming up on 01/31/2019 in addition to his PCP for subsequent care Hospital course: As documented above by Pepe Doan PA-C. - Physical Exam Vitals/I&O's: Vital Signs Temp Pulse Resp BP Pulse Ox 97.6 F L 58 L 14 140/84 H 97 01/29/19 08:13 01/29/19 08:13 01/29/19 08:13 01/29/19 08:13 01/29/19 08:13 Oxygen Delivery Method Room Air Weight: 113.9 kg Body Mass Index (BMI) 33.1 Intake and Output for Last 24 Hours 01/27/19 01/28/19 01/29/19 23:59 23:59 23:59 Intake Total 1292.5 / 1292.5 Balance 1292.5 / 1292.5 Laboratory Results 01/28/19 17:13: WBC 12.4 H, RBC 5.48, Hgb 15.9, Hct 48.5, MCV 88.5, MCH 29.0, MCHC 32.8, RDW Std Deviation 42.8, RDW Coeff of Vane 13.2, Plt Count 255, MPV 9.9, Immature Gran % (Auto) 0.500, Neut % (Auto) 80.0 H, Lymph % (Auto) 12.4 L, [place] % (Auto) 6.1, Eos % (Auto) 0.8, Baso % (Auto) 0.2, Absolute Neuts (auto) 9.9 H, Absolute Lymphs (auto) 1.54, Nucleated RBC % 0 01/28/19 17:13: APTT 25.4 01/28/19 17:13: Sodium 140, Potassium 4.0, Chloride 106, Carbon Dioxide 27.0, Anion Gap 7, BUN 22 H, Creatinine 1.07, Estim Creat Clear Calc 68.29, Est GFR (MDRD) Af Amer 86, Est GFR (MDRD) Non-Af 71, BUN/Creatinine Ratio 20.6 H, Glucose 101, Calcium 9.7, Troponin I < 0.015 01/28/19 22:33: Troponin I < 0.015 01/29/19 01:15: Troponin I < 0.015 01/29/19 04:44: Troponin I < 0.015 Current Medications Acetaminophen (Tylenol) 650 mg PO Q6H PRN PRN PRN Reason: Pain Score 1-10/10 Aspirin ([facility], [facility]) [facility] Last Admin: 01/29/19 05:33 Dose: 81 mg Documented by: Atorvastatin Calcium (Lipitor) 80 mg PO QHS [facility] Last Admin: 01/28/19 23:29 Dose: 80 mg Documented by: Clopidogrel Bisulfate (Plavix) 75 mg PO DAILY [facility] Last Admin: 01/29/19 05:33 Dose: 75 mg Documented by: Dextrose (D50w Syringe) 0 gm IV X1 PRN; Protocol PRN Reason: Hypoglycemia Glucagon () 1 mg IM .X1 PRN PRN Reason: Hypoglycemia Isosorbide Mononitrate (Imdur) 30 mg PO DAILY [facility] Last Admin: 01/29/19 12:12 Dose: 30 mg Documented by: Lisinopril (Zestril) 20 mg PO BID [facility] Last Admin: 01/29/19 05:33 Dose: 20 mg Documented by: Melatonin (Melatonin) 3 mg PO QHS PRN PRN PRN Reason: INSOMNIA Nitroglycerin (Nitrostat) 0.4 mg SUBLINGUAL Q5M PRN PRN Reason: chest pain Ondansetron HCl (Zofran) 4 mg IV Q8H PRN PRN PRN Reason: NAUSEA/VOMITING Sodium Chloride () 10 - 40 ml IV UD PRN PRN Reason: SALINE FLUSH Last Admin: 01/29/19 07:43 Dose: 10 ml Documented by: Code Visit OBSV E&M: [id number] Observation care discharge
--- NOTE | 2019-01-29 14:37 | PHA.DC.MR ---
Pharmacy Service has performed discharge medication reconciliation for this patient. Home Medications Acetaminophen [Tylenol Tablet] 325 - 650 mg PO Q6H PRN PRN #0 tab 03/02/16 Aspirin [Aspirin, Baby] 81 mg PO DAILY 10/13/17 Nitroglycerin 0.4 mg SL PRN PRN #30 tab.subl 10/14/17 clopidogrel 75 mg tablet 75 mg PO DAILY #90 tab 03/27/18 lisinopril 20 mg tablet 20 mg PO BID #180 tab 07/18/18 isosorbide mononitrate ER 30 mg tablet,extended release 24 hr 30 mg PO DAILY #30 tab 08/02/18 Atorvastatin Calcium [Lipitor] 80 mg PO QHS 01/28/19 Pantoprazole Sodium [Protonix] 40 mg PO DAILY 01/28/19 The patient's discharge medication list was reviewed for discrepancies and discrepancies were resolved.
--- NOTE | 2019-01-29 19:41 | STRESSREP ---
Stress Test Report Pharmacologic myocardial perfusion stress test. 78-year-old man with a history of chest pain. Stress protocol: Resting EKG demonstrates sinus bradycardia with a rate of 56 bpm normal intervals are noted resting blood pressures 158/84 mmHg. 0.4 mg of regadenoson was infused per usual protocol followed by rapid intravenous and flush injection continuous EKG monitoring was performed. The maximum heart rate attained was 73 bpm which was 50% of maximum predicted heart rate the maximum workload was 1 metabolic equivalent. At rest there were no ST or T wave changes noted suggest abnormal flow reserve a peak infusion nonspecific ST-T wave changes were noted. The resting blood pressures 158/84 with a final blood pressure 130/78. No clinical angina was noted. Myocardial perfusion protocol. 15.0 mCi of technetium 99m sestamibi was injected at rest. 0.4 mg of regadenoson was infused per usual protocol peak infusion 45.0 mCi of technetium 99m sestamibi was injected stress images were obtained stress and rest images were reconstructed and compared in the short axis vertical long horizontal long axis. Gated images were also obtained per Perfusion SPECT analysis: Review of the stress images demonstrate a normal cardiac silhouettes noted. There is uniform perfusion noted in the septum anterior wall and lateral wall. There is reduction of perfusion noted in the inferior wall on the stress and resting images. There is a lot of GI shifting attenuation artifact noted. Ischemia in this distribution cannot be completely excluded. Gated SPECT analysis: The gated ejection fraction is noted to be 69%. Conclusion: Probably normal myocardial perfusion stress test with no evidence of ischemia. Significant GI attenuation artifact noted. Preserved ejection fraction
== END 2019-01-29 14:21 | disposition home or self-care (01) ==
LOC: ED 20:32 → PCU 21:19
PROVIDERS: Emergency Provider Emergency Medicine; Family Provider Family Medicine; PCP Family Medicine; Visit Provider Internal Medicine
DX: R06.02 Shortness of breath (principal); I25.10 Atherosclerotic heart disease of native coronary artery without angina pectoris; E78.5 Hyperlipidemia, unspecified; I10 Essential (primary) hypertension; E11.9 Type 2 diabetes mellitus without complications; E66.9 Obesity, unspecified; Z68.33 Body mass index [BMI] 33.0-33.9, adult; Z71.3 Dietary counseling and surveillance; Z79.899 Other long term (current) drug therapy; Z79.02 Long term (current) use of antithrombotics/antiplatelets; Z79.82 Long term (current) use of aspirin; I25.2 Old myocardial infarction
CPT/HCPCS: 36415; 71045; 78452; 80048; 84484; 85025; 85730; 93005; 93017; 96360; 96361; 99218; 99284; A9500; J7030; A4216; G0378; J2785

== ENCOUNTER → 2019-03-02 10:36 | Outpatient (CLI) | payer OTHER, SELFPAY ==
[2016-03-01 15:34] VITALS: BMI 34.5
[2019-01-31 09:26] VITALS: BMI 33.0
[2019-03-02 12:26] LABS: Absolute Lymphocyte Count 2.02 X10^3/uL (0.83-4.51); Absolute Neutrophil Count 5.4 X10^3/uL (2.0-7.7); Basophil# 0.03 X10^3/uL; Basophil% 0.4 % (0-1); Eosinophil# 0.23 X10^3/uL; Eosinophils% 2.7 % (0-5); Hematocrit 46.6 % (40-54); Hemoglobin 15.3 g/dL (13.0-16.5); Lymphocyte # 2.02 X10^3/ul (4.0); Lymphocyte % 23.9 % (19-41); Mean Corp Hgb Conc 32.8 g/dL (32-36); Mean Corpuscular Hgb 29.2 pg (27.0-32.0); Mean Corpuscular Volume 88.9 fL (80-94); Mean Platelet Vol. 10.2 fl (6.2-12.0); Monocyte# 0.77 X10^3/uL; Monocyte% 9.1 % (0-10); NRBC Flagged by Analyzer 0 % (0-5); Neutrophil # 5.37 X10^3/uL (2.7-7.7); Neutrophil % 63.5 % (47-70); Platelet Count 238 K/mm3 (150-450); RBC Distribution Width CV 13.4 % (11.6-14.6); RBC Distribution Width SD 43.3 fl (35.1-43.9); Red Blood Count 5.24 M/mm3 (4.6-6.2); White Blood Count 8.5 K/mm3 (4.4-11.0)
[2019-03-02 12:37] LABS: Vitamin B12 439 pg/mL (211-911)
[2019-03-02 12:45] LABS: PSA,Total - Annual Screen 1.86 ng/mL (0.00-4.00)
[2019-03-02 13:26] LABS: Thyroid Stim Hormone (TSH) 1.73 uIU/mL (0.358-3.74)
== END ==
PROVIDERS: Family Medicine; Family Provider Family Medicine; PCP Family Medicine; Referring Provider Family Medicine; Visit Provider Family Medicine
DX: G62.9 Polyneuropathy, unspecified (principal); Z12.5 Encounter for screening for malignant neoplasm of prostate
CPT/HCPCS: 36415; 82607; 82746; 84153; 84443; 85025; G0103

== ENCOUNTER → 2019-03-15 12:54 | Outpatient (CLI) | payer OTHER, SELFPAY ==
[2016-03-01 15:34] VITALS: BMI 34.5
[2019-01-31 09:26] VITALS: BMI 33.0
--- NOTE | 2019-03-15 12:57 | ART_ITS ---
Reason For Study: Peripheral neuropathy Procedure A bilateral lower extremity continuous wave Doppler with analog waveform analysis and ankle brachial indexes. Left Segmental Pressures Left brachial= 149mmHg. Left posterior tibial artery = 162mmHg. Left dorsalis pedis artery = 166mmHg. The left dorsalis pedis waveforms are triphasic. The left posterior tibial artery waveforms are triphasic. Right Segmental Pressures Right brachial= 137mmHg. Right posterior tibial artery = 160mmHg. Right dorsalis pedis artery = 158mmHg. The right dorsalis pedis waveforms are triphasic. The right posterior tibial artery waveforms are triphasic. Indices The right ankle brachial index by the dorsalis pedis is 1.06. The right ankle brachial index by the posterior tibial artery is 1.07. The left ankle brachial index by the dorsalis pedis is 1.11. The left ankle brachial index by the posterior tibial artery is 1.09. Interpretation Summary Triphasic Doppler waveforms are noted at ankle level bilaterally. Pulse-volume recordings appear satisfactory bilaterally. Resting ankle-brachial indices are normal bilaterally. Arterial flow appears normal at ankle level bilaterally. Ordering Physician: Kodi Cole Referring Physician: Kodi Cole Performed By: Jessica Baldwin RVT
== END ==
PROVIDERS: Family Provider Family Medicine; PCP Family Medicine; Referring Provider Family Medicine; Visit Provider Family Medicine
DX: R09.89 Other specified symptoms and signs involving the circulatory and respiratory systems (principal); G62.9 Polyneuropathy, unspecified
CPT/HCPCS: 93922

== ENCOUNTER → 2019-03-20 12:47 | Outpatient (CLI) | payer OTHER, SELFPAY ==
[2016-03-01 15:34] VITALS: BMI 34.5
[2019-01-31 09:26] VITALS: BMI 33.0
--- NOTE | 2019-03-20 12:48 | CT_ITS ---
STUDY: LOW DOSE CT LUNG CANCER SCREENING REASON FOR EXAM: Male, 78 years old. LUNG CANCER SCREENING, 50+ YRS SMOKER, 1-2 PPD, QUIT 3 YEARS AGO RADIATION DOSAGE (If Supplied By Facility): CTDIvol = ( 4.02 ) mGy, DLP = ( 131.90 ) mGycm TECHNIQUE: No contrast was administered. Low dose technique was utilized (average mAS-38 and kVp 120). 1.25 mm axial source images with a slice interval of 1.25-mm were reconstructed in lung windows. 2.5 mm axial source images with a slice interval of 2.5-mm were reconstructed in lung windows. 5.0 mm axial source images with a slice interval of 5.0-mm were reconstructed in soft tissue windows. Nodule measured using lung windows on PACS and/or independent workstation with automated measurement of minimum and maximum diameter. Nodule measurement reported as average diameter rounded to the nearest whole number. Growth is defined as an increase ins size of greater than 1.5 mm. COMPARISON: None. NODULES: No suspicious nodules are seen. Emphysema: Hyperinflation. Mild bilateral apical scarring. Mild degree of bullous changes in the medial aspect of the left upper lobe. Mild degree of scarring at the lung bases. Aorta: Atherosclerotic calcifications. Coronary arteries: Coronary artery calcification. Mediastinal nodes: Small mediastinal lymph nodes. Other chest and abdominal findings: Degenerative changes of the thoracic spine. CT/Low Dose CT Lung Screening IMPRESSION: Lung-RADS category 2 - Continue annual screening with LDCT in 12 months. IMPORTANT NOTES FOR USE: ACR Lung-RADS Version 1.0 Assessment Categories Release Date: July 09, 2013 Category: Coded 0-4 bases on nodule(s) with highest degree of suspicion. Negative screen is defined as categories 1 and 2; a positive screen is defined as categories 3 and 4. Category 3 and 4A nodules that are unchanged on interval CT should be coded as category 2, and individuals returned to screening in 12 months. Category 4X: Category 3 or 4 nodules with additional imaging findings that increase the suspicion of lung cancer, such as spiculation, GGN that doubles in size in 1 year, enlarged lymph notes, etc. Category Modifiers: S (significant finding unrelated to lung cancer) and C (prior history of treated lung cancer) may be added to the 0-4 Lung-RADS Electronically Signed: Donny Marion, at 15:38 EST , Service support ,
== END ==
PROVIDERS: Family Provider Family Medicine; PCP Family Medicine; Referring Provider Nurse Practitioner Family; Visit Provider Nurse Practitioner Family
DX: Z87.891 Personal history of nicotine dependence (principal); Z12.2 Encounter for screening for malignant neoplasm of respiratory organs
CPT/HCPCS: G0297

== ENCOUNTER → 2019-03-23 20:00 | Outpatient (CLI) | payer OTHER, SELFPAY ==
[2016-03-01 15:34] VITALS: BMI 34.5
[2019-01-31 09:26] VITALS: BMI 33.0
== END ==
PROVIDERS: Family Provider Family Medicine; PCP Family Medicine; Referring Provider Physician Assistant Medical; Visit Provider Physician Assistant Medical
DX: R40.0 Somnolence (principal); R06.81 Apnea, not elsewhere classified
CPT/HCPCS: 95810

== ENCOUNTER → 2019-05-02 12:11 | Outpatient (CLI) | payer OTHER, SELFPAY ==
[2016-03-01 15:34] VITALS: BMI 34.5
[2019-01-31 09:26] VITALS: BMI 33.0
[2019-05-02 14:13] LABS: Absolute Lymphocyte Count 2.25 X10^3/uL (0.83-4.51); Absolute Neutrophil Count 7.4 X10^3/uL (2.0-7.7); Basophil# 0.05 X10^3/uL; Basophil% 0.5 % (0-1); Eosinophil# 0.24 X10^3/uL; Eosinophils% 2.2 % (0-5); Hematocrit 50.2 % (40-54); Hemoglobin 16.5 g/dL (13.0-16.5); Lymphocyte # 2.25 X10^3/ul (4.0); Lymphocyte % 20.9 % (19-41); Mean Corp Hgb Conc 32.9 g/dL (32-36); Mean Corpuscular Hgb 29.3 pg (27.0-32.0); Mean Corpuscular Volume 89.2 fL (80-94); Mean Platelet Vol. 10.1 fl (6.2-12.0); Monocyte# 0.74 X10^3/uL; Monocyte% 6.9 % (0-10); NRBC Flagged by Analyzer 0 % (0-5); Neutrophil % 68.9 % (47-70); Platelet Count 269 K/mm3 (150-450); RBC Distribution Width CV 13.3 % (11.6-14.6); RBC Distribution Width SD 43.5 fl (35.1-43.9); Red Blood Count 5.63 M/mm3 (4.6-6.2); White Blood Count 10.7 K/mm3 (4.4-11.0)
[2019-05-02 14:36] LABS: ALB/GLOB Ratio 1.3 RATIO (0.9-2.4); AST(SGOT) 26 U/L (15-37); Alanine Aminotransfer ALT/SGPT 44 U/L (16-61); Albumin, Serum 4.2 g/dL (3.2-5.0); Alkaline Phosphatase 99 U/L (45-117); Amylase 46 U/L (25-115); Anion Gap 6 (5-15); BUN 25 mg/dL (7-18); BUN/Creat Ratio 21.7 RATIO (10-20); Calcium,Total 10.4 mg/dL (8.5-10.1); Chloride 104 mmol/L (98-107); Creatinine, Serum 1.15 mg/dL (0.70-1.30); EST Glomerular Filtration Rate 66 mL/min (>60); Est Glom Filt Rate - Afr Amer 79 mL/min (>60); Globulin 3.3 g/dL (2.2-4.2); Glucose 122 mg/dL (74-106); Lipase 101 U/L (73-393); Potassium 4.6 mmol/L (3.5-5.1); Protein, Total 7.5 g/dL (6.4-8.2); Sodium Level 139 mmol/L (136-145)
== END ==
PROVIDERS: PCP Family Medicine; Referring Provider Family Medicine; Visit Provider Nurse Practitioner Adult Health
DX: R53.83 Other fatigue (principal); R11.0 Nausea
CPT/HCPCS: 36415; 80053; 82150; 83690; 85025

== ENCOUNTER → 2019-05-04 20:07 | Outpatient (CLI) | payer OTHER, SELFPAY ==
[2016-03-01 15:34] VITALS: BMI 34.5
[2019-01-31 09:26] VITALS: BMI 33.0
== END ==
PROVIDERS: PCP Family Medicine; Referring Provider Nurse Practitioner Acute Care; Visit Provider Nurse Practitioner Acute Care
DX: G47.33 Obstructive sleep apnea (adult) (pediatric) (principal)
CPT/HCPCS: 95811

== ENCOUNTER → 2019-05-22 09:15 | Outpatient (CLI) | payer OTHER, SELFPAY ==
[2016-03-01 15:34] VITALS: BMI 34.5
[2019-01-31 09:26] VITALS: BMI 33.0
== END ==
PROVIDERS: PCP Family Medicine; Referring Provider Nurse Practitioner Acute Care; Visit Provider Nurse Practitioner Acute Care
DX: Z46.89 Encounter for fitting and adjustment of other specified devices (principal)

== ENCOUNTER → 2019-07-24 13:52 | Outpatient (CLI) | payer OTHER, SELFPAY ==
[2016-03-01 15:34] VITALS: BMI 34.5
[2019-07-17 09:01] VITALS: BMI 34.9
== END ==
PROVIDERS: PCP Family Medicine; Visit Provider Physician Assistant Medical
DX: R00.1 Bradycardia, unspecified (principal); R00.2 Palpitations; R55 Syncope and collapse
CPT/HCPCS: 93225; 93226

== ENCOUNTER → 2019-07-26 13:59 | Outpatient (CLI) | payer OTHER, SELFPAY ==
[2016-03-01 15:34] VITALS: BMI 34.5
[2019-07-17 09:01] VITALS: BMI 34.9
--- NOTE | 2019-07-26 14:00 | CDU_ITS ---
Reason For Study: vertigo Rt. Velocities/BP Lt. Velocities/BP Prox CCA 74.7/20.0 cm/sec. Prox CCA 104.7/22.5 cm/sec. Mid CCA 85.2/22.6 cm/sec. Mid CCA 64.0/19.0 cm/sec. Dist CCA 72.1/14.7 cm/sec. Dist CCA 62.9/16.8 cm/sec. Prox ICA 96.2/24.9 cm/sec. Prox ICA 45.4/9.1 cm/sec. Mid ICA 126.6/44.4 cm/sec. Mid ICA 77.3/26.7 cm/sec. Dist ICA 82.6/20.0 cm/sec. Dist ICA 71.8/28.9 cm/sec. Rt. ICA/CCA = 1.5. Lt. ICA/CCA = 1.2. Prox ECA 124.7/15.2 cm/sec. Prox ECA 87.6/12.6 cm/sec. Rt. Vert. 40.4/10.7 cm/sec. Lt. Vert. 39.9/15.7 cm/sec. Right Extracranial There is heterogeneous, smooth atherosclerotic plaque noted in the right common carotid artery. There is heterogeneous, irregular atherosclerotic plaque noted in the right internal carotid artery. There is homogeneous, smooth atherosclerotic plaque noted in the right external carotid artery. Antegrade flow is noted in the right vertebral artery. Left Extracranial There is homogeneous, smooth atherosclerotic plaque noted in the left common carotid artery. There is intimal thickening but no significant atherosclerotic plaque noted in the left internal carotid artery. There is heterogeneous, smooth atherosclerotic plaque noted in the left external carotid artery. Antegrade flow is noted in the left vertebral artery. Procedure Carotid Duplex 14960. The exam was diagnostic. Exam performed in department. 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 By velocity criteria this just meets this level vs <50% <50% stenosis right external carotid Intimal thickening left internal carotid with <50% stenosis <50% stenosis left external carotid Patent, antegrade vertebrals bilaterally Ordering Physician: Lorena Monge Performed By: Farhat Cox RVT
== END ==
LOC: PSN 14:00 → CVS 14:02
PROVIDERS: PCP Family Medicine; Visit Provider Physician Assistant Medical
DX: R55 Syncope and collapse (principal); R00.1 Bradycardia, unspecified; R00.2 Palpitations
CPT/HCPCS: 93880

== ENCOUNTER → 2019-09-19 08:57 | Outpatient (CLI) | payer OTHER, SELFPAY ==
[2016-03-01 15:34] VITALS: BMI 34.5
[2019-08-14 05:36] VITALS: BMI 34.8
--- NOTE | 2019-09-19 13:18 | PFTCOMP_ITS ---
COMPLETE PULMONARY FUNCTION TEST INTERPRETATION Brief HPI: Patient is a 79 year old male, currently under the care of myself, who presents to [facility] for complete pulmonary function tests secondary to diagnosis of dyspnea. Respiratory therapist reports good effort and reproducible results. Interpretation: Forced expiration spirometry shows no large airways obstructive ventilatory defect with an FEV1 of 115% predicted. There is no significant bronchodilator response by strict ATS criteria. Spirograms are of good quality and plateau normally. The respiratory flow volume loop shows a normal pattern. Lung volumes by body plethysmography show a normal total lung capacity at 6.95 L, 98% predicted. All other lung volumes are within normal limits. Diffusion capacity by carbon monoxide is elevated at 134% predicted. The airway resistance is normal. No previous pulmonary function tests were available for review. Impression: These pulmonary function tests are within normal limits. Consider methacholine challenge if asthma is a consideration.
== END ==
PROVIDERS: PCP Family Medicine; Referring Provider Internal Medicine Critical Care Medicine; Visit Provider Internal Medicine Critical Care Medicine
DX: G47.33 Obstructive sleep apnea (adult) (pediatric) (principal); R06.02 Shortness of breath
CPT/HCPCS: 94060; 94726; 94729

== ENCOUNTER → 2019-10-01 17:22 | Outpatient (CLI) | payer OTHER, SELFPAY ==
[2016-03-01 15:34] VITALS: BMI 34.5
[2019-08-14 05:36] VITALS: BMI 34.8
--- NOTE | 2019-10-01 17:25 | RAD_ITS ---
STUDY: X-RAY - CERVICAL SPINE REASON FOR EXAM: Male, 79 years old. Left shoulder pain for a while TECHNIQUE: 7 view(s) of the cervical spine were obtained. COMPARISON: None FINDINGS: Normal anterior atlantoaxial articulation. Normal odontoid process. Normal cervical lordosis. There is multi-level endplate spondylosis. There is multi-level degenerative disc disease with multilevel disc space narrowing. There is multi-level osseous foraminal stenosis. The soft tissue structures are unremarkable. There is no demonstrated fracture of the cervical spine. RAD/Cerv Spine 4 or 5 Views IMPRESSION: Multilevel degenerative changes, no acute findings Electronically Signed: Molina Hobson MD at 9:16 EDT , Service support ,
== END ==
PROVIDERS: PCP Family Medicine; Referring Provider Family Medicine; Visit Provider Family Medicine
DX: R20.0 Anesthesia of skin (principal)
CPT/HCPCS: 72050

== ENCOUNTER → 2019-10-02 10:13 | Outpatient (CLI) | payer OTHER, SELFPAY ==
[2016-03-01 15:34] VITALS: BMI 34.5
[2019-08-14 05:36] VITALS: BMI 34.8
--- NOTE | 2019-10-02 10:19 | VDLE_ITS ---
Reason For Study: Pain RIGHT LEFT CFV is compressible, spontaneous, phasic, GSV is normal. competent and demonstrates normal CFV is compressible, spontaneous, phasic, augmentation. competent, and demonstrates normal Procedure augmentation. Exam performed in department. FV is compressible, spontaneous, phasic, A preliminary report was called and/or faxed competent and demonstrates normal to Ronen. augmentation. POP V is compressible, spontaneous, phasic, competent and demonstrates normal augmentation. T/P Trunk is compressible. PTV is compressible. LT PerV is compressible. Interpretation Summary Deep veins of the left lower extremity are patent and compressible segmentally. There is no evidence of left lower extremity deep vein thrombosis. Valvular competence appears intact within the proximal deep venous system on the left . The left great saphenous vein appears patent and compressible segmentally. Ordering Physician: James Hardwick Referring Physician: Kodi Cole Performed By: Jessica Baldwin RVT and Student
== END ==
PROVIDERS: PCP Family Medicine; Referring Provider Family Medicine; Visit Provider Family Medicine
DX: M79.662 Pain in left lower leg (principal); M25.562 Pain in left knee
CPT/HCPCS: 93971

== ENCOUNTER → 2019-10-22 09:11 | Outpatient (CLI) | payer OTHER, SELFPAY ==
[2016-03-01 15:34] VITALS: BMI 34.5
[2019-10-03 12:57] VITALS: BMI 34.7
[2019-10-22 13:18] LABS: ALB/GLOB Ratio 1.3 RATIO (0.9-2.4); AST(SGOT) 26 U/L (15-37); Alanine Aminotransfer ALT/SGPT 44 U/L (16-61); Albumin, Serum 4.1 g/dL (3.2-5.0); Alkaline Phosphatase 69 U/L (45-117); Anion Gap 10 (5-15); BUN 24 mg/dL (7-18); Calcium,Total 8.9 mg/dL (8.5-10.1); Chloride 105 mmol/L (98-107); Cholesterol 124 mg/dL (200); Creatinine, Serum 1.09 mg/dL (0.70-1.30); EST Glomerular Filtration Rate 70 mL/min (>60); Est Glom Filt Rate - Afr Amer 84 mL/min (>60); Globulin 3.2 g/dL (2.2-4.2); Glucose 128 mg/dL (74-106); High Density Lipoprotein 30 mg/dL; Potassium 3.7 mmol/L (3.5-5.1); Protein, Total 7.3 g/dL (6.4-8.2); Sodium Level 140 mmol/L (136-145); Triglycerides 215 mg/dL; Very Low Density Lipoprotein 43 mg/dL (5-40)
== END ==
PROVIDERS: PCP Family Medicine; Referring Provider Family Medicine; Visit Provider Family Medicine
DX: E11.69 Type 2 diabetes mellitus with other specified complication (principal); I10 Essential (primary) hypertension
CPT/HCPCS: 36415; 80053; 80061; 83036

== ENCOUNTER → 2019-12-06 06:11 | Outpatient (CLI) | payer OTHER, SELFPAY ==
[2016-03-01 15:34] VITALS: BMI 34.5
[2019-11-15 12:53] VITALS: BMI 34.8
--- NOTE | 2019-12-06 06:12 | ECHOCS_ITS ---
Reason For Study: DYSPNEA Procedure This was a 2D Doppler, Color Flow transthoracic echocardiogram. The study was technically difficult. Contrast injection was performed. Exam performed in department. Left Ventricle Normal LV size. Mid cavitary false tendon noted. Left ventricular systolic function is normal. The estimated ejection fraction is 65 %. Diastolic function is indeterminate. No regional wall motion abnormalities noted. Right Ventricle Normal RV size. Normal systolic function. Atria The left atrium is mildly enlarged. Normal right atrium. No doppler evidence for ASD. Mitral Valve There is no mitral annular calcification. Normal mitral valve. Trivial mitral valve insufficiency. Tricuspid Valve Normal tricuspid valve. Trivial tricuspid valve insufficiency. Right ventricular systolic pressure estimated to be 25 mmHg. Aortic Valve Trisinus/trileaflet aortic valve. Mild focal aortic valve calcification. Trivial aortic valve insufficiency. Pulmonic Valve The pulmonic valve is not well visualized. Great Vessels Normal sized aortic root. Pericardium/Pleural No pericardial effusion. Medication Diluted definity 4.0ml given slow IV push to enhance endocardial definition. MMode/2D Measurements & Calculations RVDd: 3.9 cm Ao root diam: 3.6 cm LAV(MOD-bp): 77.8 ml LAV(MOD-bp) Indexed: 32.6 ml/m2 LAV(MOD-sp2): 79.2 ml LAV(MOD-sp4): 63.6 ml EDV(MOD-sp4): 114.7 ml SV(MOD-sp4): 80.9 ml ESV(MOD-sp4): 33.8 ml LA A4 area: 19.7 cm2 EF(MOD-sp4): 70.6 % LA dimension(2D): 4.0 cm RA A4 area: 12.7 cm2 Time Measurements MV dec time: 0.19 sec Doppler Measurements & Calculations MV E max himanshu: 93.3 cm/sec Lat Peak E' Himanshu: 11.2 cm/sec Med Peak E' Himanshu: 5.6 cm/sec MV A max himanshu: 95.0 cm/sec E/E' lat: 8.3 E/E' med: 16.6 MV E/A: 0.98 Ao V2 max: 145.1 cm/sec LV V1 max: 140.9 cm/sec TR max himanshu: 235.2 cm/sec Ao max P.4 mmHg LV V1 max P.9 mmHg TR max P.1 mmHg Interpretation Summary The study was technically difficult. Contrast injection was performed. Left ventricular systolic function is normal. The estimated ejection fraction is 65 %. Mid cavitary false tendon noted. The left atrium is mildly enlarged. Trivial mitral valve insufficiency. Trivial tricuspid valve insufficiency. Mild focal aortic valve calcification. Trivial aortic valve insufficiency. Right ventricular systolic pressure estimated to be 25 mmHg. Diastolic function is indeterminate. Ordering Physician: Shaka Arnett Referring Physician: SHAKA YOUNG Performed By: Akanksha Singer, LOUISA, RVT
--- NOTE | 2019-12-06 09:24 | STRESSREP_ITS ---
Stress Test Report Date: 12-06-2019 Procedure: Pharmacologic stress nuclear imaging study Indications: Shortness of breath/dyspnea on exertion; CAD; PCI Consent: Per the patient Procedure: The patient underwent pharmacologic (Regadenoson) evaluation with a peak heart rate of 78 beats per minute (54%predicted maximal heart rate) and a peak blood pressure of 120/80 mmHg. The baseline ECG demonstrated sinus rhythm. The peak pharmacologic ECG demonstrated no obvious ECG changes. There were no cardiac dysrhythmias pretest, during pharmacologic infusion, or recovery. There was no complaint of chest discomfort during pharmacologic infusion or recovery. The examination was discontinued secondary to completion of protocol. Impression: 1. Pharmacologic (Regadenoson) evaluation 2. Peak pharmacologic ECG with no obvious ECG changes. 3. There were no cardiac dysrhythmias pretest, during pharmacologic infusion, or recovery. 4. Nuclear images pending Myocardial perfusion imaging study: Technique: The patient was injected with 14.8 millicuries of technetium 99m Cardiolite and subsequently rest SPECT Cardiolite nuclear imaging was obtained in the horizontal long, vertical long, and short axis views. The patient underwent pharmacologic (Regadenoson) evaluation with a peak heart rate of 78 beats per minute (54% percent predicted maximal heart rate) and a peak blood pressure of 120/80 mmHg. The patient was injected with 44.6 millicuries of technetium 99m Cardiolite and subsequently stress SPECT Cardiolite nuclear imaging was obtained in the horizontal long, vertical long, and short axis views. A gated Cardiolite study at peak stress was obtained. Interpretation: Rest and stress SPECT Cardiolite nuclear imaging status post realignment, normalization, and attenuation correction demonstrate at rest the appearance of a small area of subtle diminished tracer uptake near the apical segments which status post stress appears to be less prominent/improved/normalized. There is end systolic thickening and brightening. The gated Cardiolite study demonstrates myocardial thickening and inward wall motion. The reported LVEF is 69%. Impression: 1. Rest and stress SPECT current nuclear imaging demonstrate a small area of subtle diminished tracer uptake near the apical segments at rest which status post stress appear to be less prominent/improve/normalize compatible with physiologic apical thinning and/or shifting soft tissue attenuation/artifact with no myocardial perfusion changes considered diagnostic for associated stre ss-induced myocardial ischemia. 2. The gated Cardiolite study reports an LVEF of 69%. This note was generated with Dragon dictation software. It may contain incorrect words, spelling, and punctuation that were not noted in checking the note before signing.
== END ==
PROVIDERS: PCP Family Medicine; Referring Provider Nurse Practitioner Family; Visit Provider Nurse Practitioner Family
DX: I25.10 Atherosclerotic heart disease of native coronary artery without angina pectoris (principal); R06.02 Shortness of breath; Z95.5 Presence of coronary angioplasty implant and graft; R53.83 Other fatigue
CPT/HCPCS: 78452; 93017; 93306; A9500; Q9957; A4216; C8929; J2785

== ENCOUNTER → 2019-12-19 08:43 | Outpatient (CLI) | payer OTHER, SELFPAY ==
[2016-03-01 15:34] VITALS: BMI 34.5
[2019-10-03 12:57] VITALS: BMI 34.7
[2019-11-27 09:54] VITALS: BMI 34.5
[2019-12-11 07:52] VITALS: BMI 34.7
--- NOTE | 2019-12-19 14:37 | NEURO ---
NCS and/or EMG Patient Report Ordering Doctor: Kodi Cole DATE OF SERVICE: 12/19/19 Mikhail Streeter is a 79-year-old male who presents for electrodiagnostic testing of the lower limbs. Reports numbness and tingling in both feet, radiating to the knees. Electrodiagnostic findings: Right peroneal motor nerve demonstrates normal distal latency, amplitude with reduced conduction velocity. Left peroneal motor nerve demonstrates normal distal latency with reduced amplitude and reduced conduction velocity. Reduced tibial motor amplitude and conduction velocities noted bilaterally. Borderline prolonged tibial and peroneal F waves. Prolonged H reflex bilaterally. Absent sensory responses are noted bilaterally. On needle EMG, muscles tested in the lower limb showed no evidence of denervation with normal motor unit action potentials. Electrodiagnostic impression: This is an abnormal study in the lower limbs. 1. Electrodiagnostic findings suggestive of peripheral polyneuropathy, with involvement of motor and sensory nerve fibers. 2. No electrodiagnostic evidence is noted for lumbosacral radiculopathy. If there are any further questions, please do not hesitate to contact me.
== END ==
PROVIDERS: PCP Family Medicine; Referring Provider Family Medicine; Visit Provider Family Medicine
DX: R20.0 Anesthesia of skin (principal)
CPT/HCPCS: 95886; 95912

== ENCOUNTER → 2020-08-25 09:41 | Outpatient (CLI) | payer OTHER, SELFPAY ==
[2019-11-27 09:54] VITALS: BMI 34.5
[2020-06-13 09:47] VITALS: BMI 35.4
[2020-08-25 12:05] LABS: Absolute Lymphocyte Count 1.64 X10^3/uL (0.83-4.51); Absolute Neutrophil Count 4.4 X10^3/uL (2.0-7.7); Basophil# 0.02 X10^3/uL; Basophil% 0.3 % (0-1); Eosinophil# 0.19 X10^3/uL; Eosinophils% 2.8 % (0-5); Lymphocyte # 1.64 X10^3/ul (0.83-4.51); Mean Corp Hgb Conc 33.3 g/dL (32-36); Mean Corpuscular Hgb 30.1 pg (27.0-32.0); Mean Corpuscular Volume 90.4 fL (80-94); Monocyte# 0.58 X10^3/uL; Monocyte% 8.5 % (0-10); NRBC Flagged by Analyzer 0 % (0-5); Neutrophil # 4.36 X10^3/uL (2.7-7.7); Platelet Count 245 K/mm3 (150-450); RBC Distribution Width CV 12.8 % (11.6-14.6); RBC Distribution Width SD 42.3 fl (35.1-43.9); Red Blood Count 4.98 M/mm3 (4.6-6.2); White Blood Count 6.8 K/mm3 (4.4-11.0)
[2020-08-25 12:35] LABS: ALB/GLOB Ratio 1.1 RATIO (0.9-2.4); AST(SGOT) 39 U/L (15-37); Alanine Aminotransfer ALT/SGPT 45 U/L (16-61); Alkaline Phosphatase 68 U/L (45-117); Anion Gap 7 (5-15); BUN 29 mg/dL (7-18); BUN/Creat Ratio 25.7 RATIO (10-20); Calcium,Total 9.2 mg/dL (8.5-10.1); Chloride 100 mmol/L (98-107); Cholesterol 111 mg/dL (200); Creatinine, Serum 1.13 mg/dL (0.70-1.30); EST Glomerular Filtration Rate 67 mL/min (>60); Est Glom Filt Rate - Afr Amer 81 mL/min (>60); Globulin 3.5 g/dL (2.2-4.2); Glucose 132 mg/dL (74-106); High Density Lipoprotein 31 mg/dL; Potassium 4.5 mmol/L (3.5-5.1); Protein, Total 7.5 g/dL (6.4-8.2); Sodium Level 133 mmol/L (136-145); Triglycerides 165 mg/dL; Very Low Density Lipoprotein 33 mg/dL (5-40)
== END ==
PROVIDERS: PCP Family Medicine; Visit Provider Family Medicine
DX: R53.83 Other fatigue (principal); E11.69 Type 2 diabetes mellitus with other specified complication
CPT/HCPCS: 36415; 80053; 80061; 84443; 85025

== ENCOUNTER → 2020-08-26 13:02 | Outpatient (CLI) | payer OTHER, SELFPAY ==
[2019-11-27 09:54] VITALS: BMI 34.5
[2020-06-13 09:47] VITALS: BMI 35.4
[2020-08-26 12:39] VITALS: BMI 34.0
--- NOTE | 2020-08-26 13:04 | CT_ITS ---
STUDY: LOW DOSE CT LUNG CANCER SCREENING REASON FOR EXAM: Male, 80 years old. Lung cancer screening -- 37.5 pack year history;asymptomatic; former smoker RADIATION DOSAGE (If Supplied By Facility): CTDIvol = ( 3.18 ) mGy, DLP = ( 97.27 ) mGycm TECHNIQUE: No contrast was administered. Low dose technique was utilized (average mAS-38 and kVp 120). 1.25 mm axial source images with a slice interval of 1.25-mm were reconstructed in lung windows. 2.5 mm axial source images with a slice interval of 2.5-mm were reconstructed in lung windows. 5.0 mm axial source images with a slice interval of 5.0-mm were reconstructed in soft tissue windows. Nodule measured using lung windows on PACS and/or independent workstation with automated measurement of minimum and maximum diameter. Nodule measurement reported as average diameter rounded to the nearest whole number. Growth is defined as an increase ins size of greater than 1.5 mm. COMPARISON: Comparison is made with prior examination dated 03/20/2019. NODULES: No suspicious nodules are seen. Emphysema: Hyperinflation. Stable mild scarring at the right lung apex with a small bolus formation. Tiny calcified granuloma in the posterior aspect of the left lung apex abutting the major fissure as seen on axial image #49. Endobronchial lesion: None Aorta: Atherosclerotic plaque formation at the level of the aortic arch. Coronary arteries: Coronary artery calcification. Heart: Unremarkable Pulmonary artery: Unremarkable Mediastinal nodes: Stable small mediastinal lymph nodes. Other chest and abdominal findings: Degenerative changes of the thoracic vertebrae. CT/Low Dose CT Lung Screening IMPRESSION: Lung-RADS category 2 - Continue annual screening with LDCT in 12 months. IMPORTANT NOTES FOR USE: ACR Lung-RADS Version 1.1 Assessment Categories Release Date: 2018 Category: Coded 0-4 bases on nodule(s) with highest degree of suspicion. Negative screen is defined as categories 1 and 2; a positive screen is defined as categories 3 and 4. Category 3 and 4A nodules that are unchanged on interval CT should be coded as category 2, and individuals returned to screening in 12 months. Category 4X: Category 3 or 4 nodules with additional imaging findings that increase the suspicion of lung cancer, such as spiculation, GGN that doubles in size in 1 year, enlarged lymph notes, etc. Category Modifiers: S (significant finding unrelated to lung cancer) Electronically Signed: Donny Marion MD at 13:29 EDT , Service support ,
== END ==
PROVIDERS: PCP Family Medicine; Referring Provider Nurse Practitioner Family; Visit Provider Nurse Practitioner Family
DX: Z12.2 Encounter for screening for malignant neoplasm of respiratory organs (principal); Z87.891 Personal history of nicotine dependence
CPT/HCPCS: 71271

== ENCOUNTER → 2020-09-08 19:56 | Outpatient (CLI) | payer OTHER, SELFPAY ==
[2019-11-27 09:54] VITALS: BMI 34.5
[2019-12-11 07:52] VITALS: BMI 34.7
[2020-08-26 12:39] VITALS: BMI 34.0
== END ==
PROVIDERS: PCP Family Medicine; Visit Provider Internal Medicine Critical Care Medicine
DX: G47.33 Obstructive sleep apnea (adult) (pediatric) (principal)
CPT/HCPCS: 95811

== ENCOUNTER → 2020-09-26 16:36 | Outpatient (CLI) | payer OTHER, SELFPAY ==
[2019-11-27 09:54] VITALS: BMI 34.5
[2020-08-26 12:39] VITALS: BMI 34.0
[2020-09-26 18:16] LABS: PSA,Total - Annual Screen 1.78 ng/mL (0.00-4.00)
== END ==
PROVIDERS: PCP Family Medicine; Referring Provider Family Medicine; Visit Provider Family Medicine
DX: Z12.5 Encounter for screening for malignant neoplasm of prostate (principal)
CPT/HCPCS: 36415; 84153; G0103

== ENCOUNTER → 2020-10-09 13:00 | Outpatient (CLI) | payer OTHER, SELFPAY ==
[2019-11-27 09:54] VITALS: BMI 34.5
[2020-08-26 12:39] VITALS: BMI 34.0
== END ==
PROVIDERS: PCP Family Medicine; Visit Provider Nurse Practitioner Acute Care
DX: G47.33 Obstructive sleep apnea (adult) (pediatric) (principal)
CPT/HCPCS: 98960; G0463

== ENCOUNTER → 2020-10-28 11:19 | Outpatient (CLI) | payer OTHER, SELFPAY ==
[2019-11-27 09:54] VITALS: BMI 34.5
[2020-10-28 10:02] VITALS: BMI 34.0
[2020-10-28 15:10] LABS: Vitamin B12 422 pg/mL (211-911)
[2020-10-30 16:25] LABS: Vitamin D 1,25-Dihydroxy 46.2 pg/mL (19.9-79.3)
[2020-11-03 09:07] LABS: Free Kappa Light Chains 22.2 mg/L (3.3-19.4); Free Lambda Light Chains 16.4 mg/L (5.7-26.3)
[2020-11-04 17:02] LABS: Vitamin B1, Thiamine 221.6 nmol/L (66.5-200.0)
== END ==
PROVIDERS: PCP Family Medicine; Referring Provider Psychiatry & Neurology Neurology; Visit Provider Psychiatry & Neurology Neurology
DX: G62.9 Polyneuropathy, unspecified (principal); E55.9 Vitamin D deficiency, unspecified
CPT/HCPCS: 36415; 82607; 82652; 82746; 83883; 84425

== ENCOUNTER → 2020-11-20 | Outpatient (CLI) | payer OTHER, SELFPAY ==
[2019-11-27 09:54] VITALS: BMI 34.5
== END | disposition home or self-care (01) ==
LOC: LABSPEC 15:34
PROVIDERS: PCP Family Medicine; Referring Provider Family Medicine; Visit Provider Family Medicine
DX: U07.1 COVID-19 (principal)
CPT/HCPCS: 87635; U0005; U0003

== ENCOUNTER → 2021-02-20 09:33 | Outpatient (CLI) | payer OTHER, SELFPAY ==
[2019-11-27 09:54] VITALS: BMI 34.5
[2021-02-20 12:38] LABS: ALB/GLOB Ratio 1.3 RATIO (0.9-2.4); Albumin, Serum 4.2 g/dL (3.2-5.0); BUN 26 mg/dL (7-18); BUN/Creat Ratio 24.3 RATIO (10-20); Calcium,Total 9.5 mg/dL (8.5-10.1); Creatinine, Serum 1.07 mg/dL (0.70-1.30); EST Glomerular Filtration Rate 71 mL/min (>60); Est Glom Filt Rate - Afr Amer 86 mL/min (>60); Globulin 3.3 g/dL (2.2-4.2); Glucose 134 mg/dL (74-106); Protein, Total 7.5 g/dL (6.4-8.2)
[2021-02-20 12:39] LABS: AST(SGOT) 27 U/L (15-37); Alanine Aminotransfer ALT/SGPT 46 U/L (16-61); Alkaline Phosphatase 73 U/L (45-117); Anion Gap 9 (5-15); Chloride 107 mmol/L (98-107); Cholesterol 138 mg/dL (200); High Density Lipoprotein 31 mg/dL; Potassium 4.5 mmol/L (3.5-5.1); Sodium Level 140 mmol/L (136-145); Triglycerides 318 mg/dL; Very Low Density Lipoprotein 64 mg/dL (5-40)
[2021-02-20 12:48] LABS: Hemoglobin A1c 7.1 % (3.8-5.6)
== END ==
PROVIDERS: PCP Family Medicine; Referring Provider Nurse Practitioner Family; Visit Provider Nurse Practitioner Family
DX: E11.69 Type 2 diabetes mellitus with other specified complication (principal)
CPT/HCPCS: 36415; 80053; 80061; 83036

== ENCOUNTER 2021-02-20 10:24 | Emergency (ER) | payer OTHER, SELFPAY ==
[2019-11-27 09:54] VITALS: BMI 34.5
[2021-02-20] VITALS (7 sets, daily range): BP systolic 103–136; BP diastolic 63–89; PULSE 53–62; RESP 12–18; TEMP 36.4; O2SAT 96–99; BMI 35.2
--- NOTE | 2021-02-20 10:52 | EKG12_ITS ---
Test Reason : SYNCOPE Blood Pressure : / mmHG Vent. Rate : 055 BPM Atrial Rate : 055 BPM P-R Int : 190 ms QRS Dur : 098 ms QT Int : 406 ms P-R-T Axes : 052 032 058 degrees QTc Int : 388 ms Sinus bradycardia Otherwise normal ECG Confirmed by GIANNI LOZANO, CANDACE ([id number]), food editor LESLIE ARGUETA ([id number]) on 02/23/2021 9:37:59 AM Referred By: ROBERTA/BLAIR Confirmed By:CANDACE ARCHER MD
[2021-02-20 11:04] LABS: Absolute Lymphocyte Count 2.62 X10^3/uL (0.83-4.51); Absolute Neutrophil Count 6.5 X10^3/uL (2.0-7.7); Basophil# 0.05 X10^3/uL; Basophil% 0.5 % (0-1); Eosinophil# 0.23 X10^3/uL; Eosinophils% 2.3 % (0-5); Hematocrit 45.4 % (40-54); Hemoglobin 15.6 g/dL (13.0-16.5); Lymphocyte # 2.62 X10^3/ul (0.83-4.51); Lymphocyte % 25.6 % (19-41); Mean Corp Hgb Conc 34.4 g/dL (32-36); Mean Corpuscular Hgb 30.5 pg (27.0-32.0); Mean Corpuscular Volume 88.7 fL (80-94); Mean Platelet Vol. 10.1 fl (6.2-12.0); Monocyte# 0.78 X10^3/uL; Monocyte% 7.6 % (0-10); NRBC Flagged by Analyzer 0 % (0-5); Neutrophil # 6.47 X10^3/uL (2.7-7.7); Neutrophil % 63.3 % (47-70); Platelet Count 257 K/mm3 (150-450); RBC Distribution Width CV 13.2 % (11.6-14.6); RBC Distribution Width SD 43.4 fl (35.1-43.9); Red Blood Count 5.12 M/mm3 (4.6-6.2); White Blood Count 10.2 K/mm3 (4.4-11.0)
[2021-02-20 11:12] LABS: ALB/GLOB Ratio 1.1 RATIO (0.9-2.4); AST(SGOT) 24 U/L (15-37); Alanine Aminotransfer ALT/SGPT 42 U/L (16-61); Albumin, Serum 3.8 g/dL (3.2-5.0); Alkaline Phosphatase 68 U/L (45-117); Anion Gap 7 (5-15); BUN 26 mg/dL (7-18); Calcium,Total 9.5 mg/dL (8.5-10.1); Chloride 106 mmol/L (98-107); Creatinine, Serum 1.24 mg/dL (0.70-1.30); EST Glomerular Filtration Rate 60 mL/min (>60); Est Glom Filt Rate - Afr Amer 72 mL/min (>60); Estimated Creatinine Clearance 55.49 ml/min; Globulin 3.5 g/dL (2.2-4.2); Glucose 154 mg/dL (74-106); Potassium 4.3 mmol/L (3.5-5.1); Protein, Total 7.3 g/dL (6.4-8.2); Sodium Level 139 mmol/L (136-145)
--- NOTE | 2021-02-20 12:07 | CT_ITS ---
STUDY: CT BRAIN WITHOUT CONTRAST REASON FOR EXAM: Male, 80 years old. Headache RADIATION DOSAGE (If Supplied By Facility): CTDIvol = ( 44.99 ) mGy, DLP = ( 846.73 ) mGycm TECHNIQUE: Transaxial CT imaging of the brain was performed without administration of intravenous contrast material. Individualized dose optimization techniques were used for this CT. COMPARISON: Comparison is made with prior examination dated 07/25/2018. FINDINGS: Normal soft tissue structures. Normal calvarium. There is mild cerebral atrophy with widening of the extra-axial spaces and ventricular dilatation. Normal white matter tracts of the cerebral hemispheres. Normal basal ganglia and thalami. Normal brainstem. Normal cerebellum. There is no intracranial hemorrhage. There are no findings of an acute ischemic infarction. Atherosclerotic calcification of the vertebral arteries and cavernous portions of the internal carotid arteries. Normal visualized paranasal sinuses. CT/Brain/Head without Contrast IMPRESSION: Chronic involutional changes of the brain. Electronically Signed: Donny Marion MD at 12:38 EST , Service support ,
--- NOTE | 2021-02-20 12:20 | RAD_ITS ---
STUDY: X-RAY CHEST REASON FOR EXAM: Male, 80 years old. Near syncope TECHNIQUE: Single AP portable view of the chest. COMPARISON: Comparison is made with prior examination 01/28/2019. FINDINGS: The lungs are clear and expanded. There is no demonstrated pleural abnormality. Normal size heart. Normal mediastinum and grupo. Normal visualized pulmonary arteries. There is atherosclerotic calcification of the aortic arch with tortuosity. There is a dextroscoliosis of the thoracic spine. Normal visualized ribs, clavicles, and shoulders. There is no demonstrated abnormality of the visualized soft tissue structures of the upper abdomen. RAD/Chest 1 View (Portable) IMPRESSION: No acute abnormality is seen. Electronically Signed: Donny Marion MD at 12:39 EST , Service support ,
[2021-02-20 12:40] LABS: Troponin-I HS 6 pg/mL (3.0-78.0)
--- NOTE | 2021-02-20 12:57 | EX.ED.DYSGE1 ---
HPI History of Present Illness Chief Complaint: Syncope Narrative Narrative: 80-year-old male presenting with syncope during his lab draw earlier today. He states he has been kind of fatigued and out of sorts for about a month. He is here today to have blood work checked and then a couple of minutes after he had his blood work drawn he fainted twice as noted by the person drawing the blood work. It was noted that his blood pressure was a little bit low. Is also noted that this is improved. Patient denies any chest pain or shortness of breath associated with this. He does state that he has had headaches throughout the month which are atypical of him. He states he feels a brain fog associated with it. He does sleep with BiPAP already for sleep apnea. He states his sleeping is actually improved although his schedule has changed. Patient is on lisinopril 20 mg p.o. twice daily. This has not changed. [facility] Medical History Atherosclerotic heart disease of [place] coronary artery without angina pectoris Bradycardia CAD (coronary artery disease) Diabetes mellitus type 2 in obese Encounter for screening for malignant neoplasm of lung Essential hypertension History of tobacco use HTN (hypertension) Hyperlipidemia Left atrial enlargement LVH (left ventricular hypertrophy) NSTEMI (non-ST elevated myocardial infarction) JESSE (obstructive sleep apnea) PAC (premature atrial contraction) Palpitations Presence of stent in coronary artery (~03/01/16) Pure hypercholesterolemia PVC (premature ventricular contraction) Vertigo Home Medications acetaminophen 325 - 650 mg PO Q6H PRN PRN #0 tab 03/02/16 [Rx Last Taken Unknown] aspirin 81 mg PO DAILY 10/13/17 [History Last Taken 01/28/19 09:00] nitroglycerin 0.4 mg SL PRN PRN #30 tab.subl 10/14/17 [Rx Last Taken 01/28/19 16:00] pantoprazole 40 mg PO DAILY 01/28/19 [History Last Taken 01/27/19 09:00] hydrochlorothiazide 25 mg tablet 25 mg PO DAILY 07/17/19 [History Last Taken Unknown] isosorbide mononitrate 30 mg tablet,extended release 24 hr 30 mg PO DAILY #90 tab 03/11/20 [Rx Last Taken Unknown] lisinopril 20 mg tablet 20 mg PO BID #180 tab 07/15/20 [Rx Last Taken Unknown] metformin 500 mg tablet 500 mg PO DAILY 08/26/20 [History Last Taken Unknown] atorvastatin 80 mg tablet 80 mg PO QHS #90 tab 01/19/21 [Rx Last Taken Unknown] cholecalciferol (vitamin D3) 25 mcg (1,000 unit) tablet 25 mcg PO DAILY 02/09/21 [History Last Taken Unknown] clopidogrel 75 mg tablet 75 mg PO DAILY tab 02/09/21 [History Last Taken Unknown] vit B complex 100 combo no.2 100 mg tablet,extended release 100 tab PO DAILY tab 02/09/21 [History Last Taken Unknown] Allergy/AdvReac Type Severity Reaction Status Date / Time gabapentin Allergy Anaphylaxis Verified 02/20/21 10:26 Family History Mother Diabetes Cancer BREAST CA Father CVA (cerebral vascular accident) Surgical History History of tonsillectomy Post PTCA (~2015) Presence of coronary angioplasty implant and graft (~03/01/16) Social History Smoking Status: Former smoker alcohol intake: current alcohol intake frequency: a few times a month caffeine: No ROS ROS ED ROS Narrative Syncope Constitutional Constitutional ED: Denies chills or fever(s) Eyes Eyes: Denies blurry vision or diplopia ENT ENT ED: Denies rhinorrhea or sore throat Cardiovascular Cardiovascular: Denies chest pain or palpitations Respiratory/Chest Respiratory/Chest: Denies cough or dyspnea Gastrointestinal Gastrointestinal: Denies abdominal pain, nausea or vomiting Genitourinary Genitourinary ED: Denies dysuria or hematuria Musculoskeletal Musculoskeletal: Denies myalgias Integumentary Denies abscess or rash Neurologic Neurologic: Reports headache(s) and other Psychiatric Psychiatric: Denies anxiety or depression EXAM Physical Exam Const Vital Signs: 02/20/21 10:26 02/20/21 10:34 02/20/21 11:26 Temperature 97.6 F L Temperature Source Oral Pulse Rate 54 L 54 L Pulse Rate [Lying] Pulse Rate [Sitting] Pulse Rate [Standing] Respiratory Rate 12 18 Respiratory Effort Normal Non-Labored Blood Pressure 111/65 103/68 Blood Pressure [Lying] Blood Pressure [Sitting] Blood Pressure [Standing] Blood Pressure Mean 80 79 Blood Pressure Mean [Lying] Blood Pressure Mean [Sitting] Blood Pressure Mean [Standing] Pulse Ox 96 98 Oxygen Delivery Method Room Air Room Air 02/20/21 12:11 02/20/21 13:07 02/20/21 14:00 Temperature Temperature Source Pulse Rate 55 L 56 L 57 L Pulse Rate [Lying] Pulse Rate [Sitting] Pulse Rate [Standing] Respiratory Rate 12 17 17 Respiratory Effort Blood Pressure 132/73 H 106/72 132/86 H Blood Pressure [Lying] Blood Pressure [Sitting] Blood Pressure [Standing] Blood Pressure Mean 92 83 101 Blood Pressure Mean [Lying] Blood Pressure Mean [Sitting] Blood Pressure Mean [Standing] Pulse Ox 99 97 98 Oxygen Delivery Method Room Air Room Air Room Air 02/20/21 14:58 02/20/21 15:05 Temperature Temperature Source Pulse Rate 53 L Pulse Rate [Lying] 58 L Pulse Rate [Sitting] 62 Pulse Rate [Standing] 62 Respiratory Rate 16 Respiratory Effort Blood Pressure 135/82 H Blood Pressure [Lying] 115/63 Blood Pressure [Sitting] 136/89 H Blood Pressure [Standing] 135/82 H Blood Pressure Mean 99 Blood Pressure Mean [Lying] 80 Blood Pressure Mean [Sitting] 104 Blood Pressure Mean [Standing] 99 Pulse Ox 99 Oxygen Delivery Method Room Air Positive well nourished General Appearance ED: NAD; Negative for cyanotic, diaphoretic or pallor HEENT Reports moist mucous membranes Negative for trauma Eyes PERRL and EOMs intact bilaterally Neck no lymphadenopathy and supple Resp normal respiratory effort and clear to auscultation bilaterally Cardio regular rate and regular rhythm Extremity normal to inspection Neuro oriented x3 and CN's II-XII intact bilaterally Sensorium / Orientation: alert Motor Exam: strength 5/5 throughout Psych mental status grossly normal Skin no rashes or lesions noted and no wounds General Skin Exam: Negative for jaundice or pallor MDM MDM MDM Narrative Medical decision making narrative: Patient had an episode of syncope after having labs drawn. This is a couple minutes after the blood was drawn. He is not had an episode of this with lab draws before. His CBC is normal and shows no leukocytosis or leukopenia. His hemoglobin hematocrit are stable. Platelets are normal. CMP is within normal limits with exception of a slight elevation in BUN/creatinine ratio. High-sensitivity troponin is 6 and the patient did not have any chest pain with this. Chest x-ray on my interpretation shows no acute cardiopulmonary process and the radiologist does agree. Because the patient is having intermittent headaches I did obtain a CT of the brain and this is normal as well as interpreted by the radiologist. EKG on my interpretation is a sinus rhythm with a ventricular rate of 55 bpm without sign of ischemic change or dysrhythmia. High-sensitivity troponin is 6. Patient does not report any chest pain. Renal function is normal. Patient slightly dehydrated. Orthostatic negative. Patient symptoms most likely from the needlestick earlier given have not found anything else acute. We did discuss this at length. He is encouraged to follow-up with his primary care provider or Dr. Cha as needed. He is given return precautions. Impression: 1. Syncope 2. Fatigue 3. Headaches Lab Data Labs: Laboratory Results - last 24 hr 02/20/21 02/20/21 02/20/21 10:16 10:16 10:16 WBC 10.2 RBC 5.12 Hgb 15.6 Hct 45.4 MCV 88.7 MCH 30.5 MCHC 34.4 RDW Std Deviation 43.4 RDW Coeff of Vane 13.2 Plt Count 257 MPV 10.1 Immature Gran % (Auto) 0.700 Neut % (Auto) 63.3 Lymph % (Auto) 25.6 [place] % (Auto) 7.6 Eos % (Auto) 2.3 Baso % (Auto) 0.5 Absolute Neuts (auto) 6.5 Absolute Lymphs (auto) 2.62 Nucleated RBC % 0 Sodium 139 Potassium 4.3 Chloride 106 Carbon Dioxide 26.0 Anion Gap 7 BUN 26 H Creatinine 1.24 Estim Creat Clear Calc 55.49 Est GFR (MDRD) Af Amer 72 Est GFR (MDRD) Non-Af 60 BUN/Creatinine Ratio 21.0 H Glucose 154 H Calcium 9.5 Total Bilirubin 0.50 AST 24 ALT 42 Alkaline Phosphatase 68 Troponin I High Sens 6 Total Protein 7.3 Albumin 3.8 Globulin 3.5 Albumin/Globulin Ratio 1.1 Radiography Diagnostic Testing: Clinical Impression(s) from Imaging Studies Brain CT 02/20/21 12:07 IMPRESSION: Chronic involutional changes of the brain. Electronically Signed: Donny Marion MD at 12:38 EST , Service support , Chest X-Ray 02/20/21 12:20 IMPRESSION: No acute abnormality is seen. Electronically Signed: Donny Marion MD at 12:39 EST , Service support , Discharge Plan Triage Chief Complaint: Syncope ED Provider: Zackary Lerner Dx/Rx/DC Orders Instructions: ED Near-Fainting, Uncertain Cause Prescriptions: No Action hydrochlorothiazide 25 mg tablet 25 mg PO DAILY RF: 0 clopidogrel 75 mg tablet 75 mg PO DAILY RF: 0 cholecalciferol (vitamin D3) 25 mcg (1,000 unit) tablet 25 mcg PO DAILY RF: 0 B-100 Complex 100 mg tablet extended release 100 tab PO DAILY RF: 0 metformin 500 mg tablet 500 mg PO DAILY RF: 0 acetaminophen 325 MG tablet 325 - 650 mg PO Q6H PRN PRN (Reason: Pain) Qty: 0 RF: 0 aspirin 81 MG tablet,chewable 81 mg PO DAILY RF: 0 nitroglycerin 0.4 MG tablet, sublingual 0.4 mg SL PRN PRN (Reason: Cardiac/Chest Pain) Qty: 30 RF: 1 pantoprazole 40 MG tablet 40 mg PO DAILY RF: 0 isosorbide mononitrate 30 mg tablet extended release 24 hr 30 mg PO DAILY Qty: 90 RF: 3 lisinopril 20 mg tablet 20 mg PO BID Qty: 180 RF: 3 atorvastatin 80 mg tablet 80 mg PO QHS Qty: 90 RF: 3 Primary Care Provider: Care Physician,No Primary Referrals: James Cha MD [STAFF PHYSICIAN] - As Needed Care Physician,No Primary [Primary Care Provider] - Disposition Disposition: Home, Self Care
== END 2021-02-20 15:19 | disposition home or self-care (01) ==
PROVIDERS: Emergency Provider Student in an Organized Health Care Education/Training Program
DX: R55 Syncope and collapse (principal); R53.83 Other fatigue; R51.9 Headache, unspecified; E11.9 Type 2 diabetes mellitus without complications; E66.9 Obesity, unspecified; Z68.35 Body mass index [BMI] 35.0-35.9, adult; E78.00 Pure hypercholesterolemia, unspecified; E78.5 Hyperlipidemia, unspecified; G47.33 Obstructive sleep apnea (adult) (pediatric); I25.2 Old myocardial infarction; I25.10 Atherosclerotic heart disease of native coronary artery without angina pectoris; Z95.5 Presence of coronary angioplasty implant and graft; Z79.82 Long term (current) use of aspirin; Z79.84 Long term (current) use of oral hypoglycemic drugs; Z79.899 Other long term (current) drug therapy; Z87.891 Personal history of nicotine dependence
CPT/HCPCS: 70450; 71045; 80053; 84484; 85025; 93005; 99285

== ENCOUNTER 2021-04-24 09:50 | Outpatient (CLI) | payer OTHER, SELFPAY ==
[2019-11-27 09:54] VITALS: BMI 34.5
[2021-04-28 13:08] LABS: Albumin 3.5 g/dL (2.9-4.4); Alpha-1-Globulins 0.2 g/dL (0.0-0.4); Alpha-2-Globulins 0.9 g/dL (0.4-1.0); Immunoglobulin A 122 mg/dL (61-437); Immunoglobulin G 897 mg/dL (603-1613); Immunoglobulin M 77 mg/dL (15-143); PROEL- TOTAL PROTEIN 6.5 g/dL (6.0-8.5)
== END 2021-04-24 23:59 | disposition home or self-care (01) ==
LOC: MFPLAB 09:56
PROVIDERS: PCP Nurse Practitioner Family; Referring Provider Nurse Practitioner Family; Visit Provider Nurse Practitioner Family
DX: G62.9 Polyneuropathy, unspecified (principal)
CPT/HCPCS: 36415; 82784; 84165; 86334; 86335

== ENCOUNTER → 2021-09-01 | Outpatient (CLI) | payer OTHER, SELFPAY ==
[2019-11-27 09:54] VITALS: BMI 34.5
[2021-09-01 12:48] LABS: Hemoglobin A1c 6.7 % (3.8-5.6)
== END | disposition home or self-care (01) ==
LOC: MFPLAB 09:54
PROVIDERS: Nurse Practitioner Family; PCP Nurse Practitioner Family; Visit Provider Family Medicine
DX: N41.1 Chronic prostatitis (principal); E11.69 Type 2 diabetes mellitus with other specified complication; I10 Essential (primary) hypertension
CPT/HCPCS: 36415; 80053; 83036; 84153

== ENCOUNTER → 2021-09-03 | Outpatient (CLI) | payer OTHER, SELFPAY ==
[2019-11-27 09:54] VITALS: BMI 34.5
[2021-09-03 10:50] LABS: ALB/GLOB Ratio 1.1 RATIO (0.9-2.4); AST(SGOT) 21 U/L (15-37); Alanine Aminotransfer ALT/SGPT 32 U/L (16-61); Albumin, Serum 3.8 g/dL (3.2-5.0); Alkaline Phosphatase 65 U/L (45-117); Anion Gap 7 (5-15); BUN 29 mg/dL (7-18); BUN/Creat Ratio 26.1 RATIO (10-20); Calcium,Total 9.4 mg/dL (8.5-10.1); Chloride 102 mmol/L (98-107); Creatinine, Serum 1.11 mg/dL (0.70-1.30); EST Glomerular Filtration Rate 68 mL/min (>60); Est Glom Filt Rate - Afr Amer 82 mL/min (>60); Globulin 3.5 g/dL (2.2-4.2); Glucose 159 mg/dL (74-106); Potassium 4.3 mmol/L (3.5-5.1); Protein, Total 7.3 g/dL (6.4-8.2); Sodium Level 137 mmol/L (136-145)
[2021-09-04 20:40] LABS: PSA, Total 1.5 ng/mL (0.0-4.0)
== END | disposition home or self-care (01) ==
LOC: MFPLAB 09:26
PROVIDERS: PCP Family Medicine; Referring Provider Family Medicine; Visit Provider Family Medicine
DX: I10 Essential (primary) hypertension (principal)
CPT/HCPCS: 80053; 84153

== ENCOUNTER 2022-01-07 17:00 | Outpatient (RCR) | payer MEDICARE, OTHER, SELFPAY ==
[2019-11-27 09:54] VITALS: BMI 34.5
== END 2022-01-11 23:59 ==
LOC: DC 17:00
PROVIDERS: PCP Family Medicine; Referring Provider Nurse Practitioner Family; Visit Provider Nurse Practitioner Family
DX: E11.9 Type 2 diabetes mellitus without complications (principal)
CPT/HCPCS: G0108

== ENCOUNTER 2022-01-18 08:39 | Outpatient (RCR) | payer MEDICARE, OTHER, SELFPAY ==
[2019-11-27 09:54] VITALS: BMI 34.5
== END 2022-02-10 23:59 ==
LOC: DC 08:39
PROVIDERS: PCP Family Medicine; Referring Provider Nurse Practitioner Family; Visit Provider Nurse Practitioner Family
DX: E11.9 Type 2 diabetes mellitus without complications (principal)
CPT/HCPCS: 97802

== ENCOUNTER 2022-02-15 08:30 | Outpatient (RCR) | payer MEDICARE, OTHER, SELFPAY ==
[2019-11-27 09:54] VITALS: BMI 34.5
== END 2022-03-13 23:59 ==
LOC: DC 08:30
PROVIDERS: PCP Family Medicine; Referring Provider Nurse Practitioner Family; Visit Provider Nurse Practitioner Family
DX: E11.9 Type 2 diabetes mellitus without complications (principal)
CPT/HCPCS: 97803

== ENCOUNTER 2022-04-06 08:12 | Outpatient (RCR) | payer MEDICARE, OTHER, SELFPAY ==
[2019-11-27 09:54] VITALS: BMI 34.5
== END 2022-04-13 23:59 ==
LOC: DC 08:12
PROVIDERS: PCP Family Medicine; Referring Provider Nurse Practitioner Family; Visit Provider Nurse Practitioner Family
DX: E11.9 Type 2 diabetes mellitus without complications (principal)
CPT/HCPCS: 97803

== ENCOUNTER 2022-05-04 08:27 | Outpatient (RCR) | payer MEDICARE, OTHER, SELFPAY ==
[2019-11-27 09:54] VITALS: BMI 34.5
== END 2022-05-11 23:59 ==
LOC: DC 08:27
PROVIDERS: PCP Family Medicine; Referring Provider Nurse Practitioner Family; Visit Provider Nurse Practitioner Family
DX: E11.9 Type 2 diabetes mellitus without complications (principal)
CPT/HCPCS: 97803; G0108

== ENCOUNTER → 2022-05-04 | Outpatient (CLI) | payer MEDICARE, OTHER, SELFPAY ==
[2019-11-27 09:54] VITALS: BMI 34.5
[2022-05-04 09:50] LABS: Absolute Lymphocyte Count 2.24 X10^3/uL (0.83-4.51); Absolute Neutrophil Count 6.6 X10^3/uL (2.0-7.7); Basophil# 0.04 X10^3/uL; Basophil% 0.4 % (0-1); Eosinophil# 0.21 X10^3/uL; Eosinophils% 2.2 % (0-5); Hematocrit 48.7 % (40-54); Hemoglobin 16.6 g/dL (13.0-16.5); Lymphocyte # 2.24 X10^3/ul (0.83-4.51); Lymphocyte % 23.1 % (19-41); Mean Corp Hgb Conc 34.1 g/dL (32-36); Mean Corpuscular Hgb 30.6 pg (27.0-32.0); Mean Corpuscular Volume 89.9 fL (80-94); Mean Platelet Vol. 9.6 fl (6.2-12.0); Monocyte# 0.58 X10^3/uL; NRBC Flagged by Analyzer 0 % (0-5); Neutrophil # 6.57 X10^3/uL (2.7-7.7); Neutrophil % 67.6 % (47-70); Platelet Count 330 K/mm3 (150-450); RBC Distribution Width CV 12.7 % (11.6-14.6); RBC Distribution Width SD 41.5 fl (35.1-43.9); Red Blood Count 5.42 M/mm3 (4.6-6.2); White Blood Count 9.7 K/mm3 (4.4-11.0)
[2022-05-04 10:14] LABS: Hemoglobin A1c 6.9 % (3.8-5.6)
[2022-05-04 10:31] LABS: AST(SGOT) 20 U/L (15-37); Alanine Aminotransfer ALT/SGPT 31 U/L (16-61); Albumin, Serum 3.9 g/dL (3.2-5.0); Alkaline Phosphatase 74 U/L (45-117); Anion Gap 7 (5-15); BUN 32 mg/dL (7-18); BUN/Creat Ratio 27.4 RATIO (10-20); Bilirubin, Direct 0.12 mg/dL (0.00-0.30); Calcium,Total 9.5 mg/dL (8.5-10.1); Chloride 106 mmol/L (98-107); Cholesterol 132 mg/dL (200); Creatinine, Serum 1.17 mg/dL (0.70-1.30); EST Glomerular Filtration Rate 64 mL/min (>60); Est Glom Filt Rate - Afr Amer 77 mL/min (>60); Globulin 3.8 g/dL (2.2-4.2); Glucose 164 mg/dL (74-106); High Density Lipoprotein 31 mg/dL; Protein, Total 7.7 g/dL (6.4-8.2); Sodium Level 139 mmol/L (136-145); Triglycerides 152 mg/dL; Very Low Density Lipoprotein 30 mg/dL (5-40)
[2022-05-06 22:59] LABS: Vitamin D 1,25-Dihydroxy 44.5 pg/mL (24.8-81.5)
== END | disposition home or self-care (01) ==
PROVIDERS: Nurse Practitioner Family; PCP Family Medicine; Referring Provider Nurse Practitioner Gerontology; Visit Provider Nurse Practitioner Gerontology
DX: I10 Essential (primary) hypertension (principal); E11.69 Type 2 diabetes mellitus with other specified complication; E78.00 Pure hypercholesterolemia, unspecified; E55.9 Vitamin D deficiency, unspecified
CPT/HCPCS: 36415; 80053; 80061; 82248; 82652; 83036; 85025; 97803

== ENCOUNTER → 2023-09-01 | Outpatient (CLI) | payer MEDICARE, OTHER, SELFPAY ==
[2019-11-27 09:54] VITALS: BMI 34.5
[2023-09-01 09:59] LABS: Absolute Lymphocyte Count 1.97 X10^3/uL (0.83-4.51); Basophil# 0.05 X10^3/uL; Basophil% 0.5 % (0-1); Eosinophil# 0.19 X10^3/uL; Eosinophils% 1.9 % (0-5); Hematocrit 46.5 % (40-54); Hemoglobin 15.4 g/dL (13.0-16.5); Lymphocyte # 1.97 X10^3/ul (0.83-4.51); Lymphocyte % 19.8 % (19-41); Mean Corp Hgb Conc 33.1 g/dL (32-36); Mean Corpuscular Volume 90.6 fL (80-94); Mean Platelet Vol. 10.2 fl (6.2-12.0); NRBC Flagged by Analyzer 0 % (0-5); Neutrophil # 7.02 X10^3/uL (2.7-7.7); Neutrophil % 70.4 % (47-70); Platelet Count 284 K/mm3 (150-450); RBC Distribution Width SD 42.7 fl (35.1-43.9); Red Blood Count 5.13 M/mm3 (4.6-6.2)
[2023-09-01 11:28] LABS: ALB/GLOB Ratio 1.1 RATIO (0.9-2.4); AST(SGOT) 21 U/L (15-37); Alanine Aminotransfer ALT/SGPT 31 U/L (16-61); Albumin, Serum 3.9 g/dL (3.2-5.0); Alkaline Phosphatase 70 U/L (45-117); Anion Gap 10 (5-15); BUN 25 mg/dL (7-18); BUN/Creat Ratio 23.1 RATIO (10-20); Calcium,Total 9.3 mg/dL (8.5-10.1); Chloride 106 mmol/L (98-107); Cholesterol 120 mg/dL (200); Creatinine, Serum 1.08 mg/dL (0.70-1.30); EST Glomerular Filtration Rate 70 mL/min (>60); Est Glom Filt Rate - Afr Amer 84 mL/min (>60); Globulin 3.5 g/dL (2.2-4.2); Glucose 145 mg/dL (74-106); High Density Lipoprotein 30 mg/dL; PSA,Total - Annual Screen 1.31 ng/mL (0.00-4.00); Potassium 4.4 mmol/L (3.5-5.1); Protein, Total 7.4 g/dL (6.4-8.2); Sodium Level 139 mmol/L (136-145); Triglycerides 252 mg/dL; Very Low Density Lipoprotein 50 mg/dL (5-40)
== END | disposition home or self-care (01) ==
LOC: MFPLAB 09:16
PROVIDERS: PCP Family Medicine; Visit Provider Family Medicine
DX: E11.69 Type 2 diabetes mellitus with other specified complication (principal); Z12.5 Encounter for screening for malignant neoplasm of prostate
CPT/HCPCS: 36415; 80053; 80061; 84153; 85025; G0103

== ENCOUNTER → 2023-09-05 | Outpatient (CLI) | payer MEDICARE, OTHER, SELFPAY ==
[2019-11-27 09:54] VITALS: BMI 34.5
--- NOTE | 2023-09-05 12:13 | STRESSREP ---
Stress Test Report Exercise myocardial perfusion stress test. 83-year-old male with a history of coronary artery disease Stress protocol: Resting EKG demonstrates normal sinus rhythm with a rate of 58 bpm resting blood pressure is 140/78 mmHg. The patient exercised according to the regular Chang protocol for a total duration of 5 minutes attaining a maximum heart rate of 136 bpm which was 97% of maximum predicted heart rate; the maximum workload was 7 metabolic equivalents. At rest there were no ST or T wave changes noted to suggest ischemia and at peak exercise upsloping ST changes only were noted which did not meet the criteria for ischemia. No clinical angina was noted the test was terminated due to the target heart rate being achieved/fatigue. The peak blood pressure was 200/82 mmHg. Rate-pressure product was 17,000. Myocardial perfusion protocol. 14.8 mCi of technetium 99m sestamibi was injected at rest. The patient exercised according to regular Chang protocol for total duration of 5 minutes and at peak exercise 44.4 mCi of technetium 99m sestamibi was injected stress images were obtained stress and rest images were reconstructed in comparing the short axis vertical long and horizontal long axis. Gated images were also obtained. Perfusion SPECT analysis: Review of the stress images demonstrate normal uptake of tracer noted in all areas of the myocardium. The resting images similarly demonstrate normal uptake of tracer noted in all areas of the myocardium. No areas of reversibility are noted to suggest ischemia no previous infarct was noted. Gated SPECT analysis: The gated ejection fraction is 66%. Conclusion: Normal exercise myocardial perfusion stress test at a moderate workload Preserved ejection fraction.
== END | disposition home or self-care (01) ==
PROVIDERS: PCP Family Medicine; Referring Provider Nurse Practitioner Gerontology; Visit Provider Nurse Practitioner Gerontology
DX: Z95.5 Presence of coronary angioplasty implant and graft (principal); I25.10 Atherosclerotic heart disease of native coronary artery without angina pectoris
CPT/HCPCS: 78452; 93017; A9500; A4216

== ENCOUNTER → 2024-03-09 | Outpatient (CLI) | payer MEDICARE, OTHER, SELFPAY ==
[2019-11-27 09:54] VITALS: BMI 34.5
[2024-03-09 13:59] LABS: Hemoglobin A1c 7.4 % (3.8-5.6)
== END | disposition home or self-care (01) ==
LOC: MFPLAB 09:38
PROVIDERS: PCP Family Medicine; Referring Provider Family Medicine; Visit Provider Family Medicine
DX: E11.40 Type 2 diabetes mellitus with diabetic neuropathy, unspecified (principal)
CPT/HCPCS: 36415; 83036

== ENCOUNTER → 2024-08-30 | Outpatient (CLI) | payer MEDICARE, OTHER, SELFPAY ==
[2019-11-27 09:54] VITALS: BMI 34.5
[2024-08-30 12:31] LABS: Hemoglobin 14.3 g/dL (13.0-16.5); Mean Corpuscular Hgb 30.2 pg (27.0-32.0); Mean Corpuscular Volume 88.6 fL (80-94); Mean Platelet Vol. 10.7 fl (6.2-12.0); Platelet Count 283 K/mm3 (150-450); RBC Distribution Width CV 12.6 % (11.6-14.6); Red Blood Count 4.74 M/mm3 (4.6-6.2); White Blood Count 9.1 K/mm3 (4.4-11.0)
[2024-08-30 13:08] LABS: Hemoglobin A1c 8.2 % (<=5.6)
[2024-08-30 13:13] LABS: ALB/GLOB Ratio 1.5 RATIO (0.9-2.4); AST(SGOT) 21 U/L (<=37); Alanine Aminotransfer ALT/SGPT 22 U/L (<=46); Alkaline Phosphatase 66 U/L (40-129); Anion Gap 12 (5-15); BUN 21 mg/dL (4-19); Calcium,Total 9.2 mg/dL (7.6-11.0); Carbon Dioxide 26.7 mmol/L (21.0-32.0); Chloride 101 mmol/L (98-108); Cholesterol 131 mg/dL (<=200); Creatinine, Serum 1.14 mg/dL (0.70-1.20); EST Glomerular Filtration Rate 64 (>60); Globulin 2.7 g/dL (2.2-4.2); Glucose 159 mg/dL (70-99); High Density Lipoprotein 28 mg/dL; Low Density Lipoprotein Calc. 67 mg/dL; PSA,Total - Annual Screen 2.29 ng/mL (0.02-4.00); Potassium 3.9 mmol/L (3.3-5.1); Protein, Total 6.7 g/dL (5.9-8.4); Sodium Level 140 mmol/L (133-145); Total Bilirubin 0.46 mg/dL (0.00-1.30); Triglycerides 182 mg/dL; Very Low Density Lipoprotein 36 mg/dL (5-40); cholesterol:hdl ratio screen 4.75
== END | disposition home or self-care (01) ==
LOC: MFPLAB 09:59
PROVIDERS: PCP Family Medicine; Referring Provider Family Medicine; Visit Provider Family Medicine
DX: Z01.89 Encounter for other specified special examinations (principal); Z12.5 Encounter for screening for malignant neoplasm of prostate
CPT/HCPCS: 36415; 80053; 80061; 83036; 84153; 85027; G0103